=== PATIENT | male | born 1970 | race Caucasian/White ===

== ENCOUNTER 2016-12-08 18:00 | Emergency (ER) | payer OTHER ==
[2016-12-08 18:09] VITALS: BP 128/81; PULSE 65; RESP 18; TEMP 97.5
--- NOTE | 2016-12-08 18:18 | ED ---
Lower Extremity Injury HPI - General Chief Complaint: Extremity Injury, Lower Stated Complaint: rt knee injury - i[facility] Time Seen by Provider: 12/08/16 18:11 Source: patient, RN notes reviewed, old records reviewed Mode of arrival: ambulatory Limitations: no limitations - History of Present Illness Initial Comments: This is a 46-year-old presents emergency Department with chief complaint of right knee pain. Patient reports that he was at work and was twisting to get something. Patient reports that his foot stayed in the same position but his body leave the other way. He reports that he has pain mainly in the medial aspect of his knee. He denies any chronic issues with his knee. He states that he has full range of motion in the. He denies any ankle or foot pain. He states that he does have some numbness and tingling that goes down his foot. He states at that time normal. Patient denies any hip pain or thigh pain. Patient reports he is able to bear weight over his leg without stating that he has had some pain. - Related Data Previous Rx's Medication Instructions Recorded Ibuprofen [Motrin] 800 mg PO Q6HR PRN #20 tab 12/08/16 Allergies Allergy/AdvReac Type Severity Reaction Status Date / Time No Known Allergies Allergy Verified 12/08/16 18:26 Review of Systems ROS Statement: Those systems with pertinent positive or pertinent negative responses have been documented in the HPI. ROS Other: All systems not noted in ROS Statement are negative. Past Medical History Past Medical History: Cancer, Hyperlipidemia, Prostate Disorder Additional Past Medical History / Comment(s): migraines, prostate cancer History of Any Multi-Drug Resistant Organisms: None Reported Past Surgical History: Adenoidectomy, Appendectomy, Cholecystectomy, Hernia Repair, Orthopedic Surgery, Prostate Surgery, Tonsillectomy Additional Past Surgical History / Comment(s): left knee arthroscopy, rt ankle tendon surgery, Past Anesthesia/Blood Transfusion Reactions: No Reported Reaction Past Psychological History: No Psychological Hx Reported Smoking Status: Current every day smoker Past Alcohol Use History: Occasional Additional Past Alcohol Use History / Comment(s): has smoked for > 20 yrs, 1/2 PPD Past Drug Use History: None Reported - Past Family History Mother Family Medical History: Cancer, Pulmonary Embolus General Exam - General Exam Comments Initial Comments: This is a 46-year-old male presents emergency Department with chief plan right knee. Patient does not appear to be in any acute distress. Limitations: no limitations General appearance: alert, in no apparent distress Head exam: Present: atraumatic, normocephalic, normal inspection Eye exam: Present: normal appearance, PERRL, EOMI. Absent: scleral icterus, conjunctival injection, periorbital swelling ENT exam: Present: normal exam, mucous membranes moist Neck exam: Present: normal inspection. Absent: tenderness, meningismus, lymphadenopathy Respiratory exam: Present: normal lung sounds bilaterally. Absent: respiratory distress, wheezes, rales, rhonchi, stridor Cardiovascular Exam: Present: regular rate, normal rhythm, normal heart sounds. Absent: systolic murmur, diastolic murmur, rubs, gallop, clicks GI/Abdominal exam: Present: soft, normal bowel sounds. Absent: distended, tenderness, guarding, rebound, rigid Extremities exam: Present: normal inspection, full ROM, normal capillary refill. Absent: tenderness, pedal edema, joint swelling, calf tenderness Right Upper Leg exam: Present: normal inspection, full ROM Knee exam: Present: normal inspection, full ROM, tenderness (She reports tenderness over the medial aspect of the knee. Patient does have full range motion.). Absent: swelling, abrasion Lower Leg exam: Present: normal inspection, full ROM Ankle exam: Present: normal inspection, full ROM Foot/Toe exam: Present: normal inspection, full ROM Neurovascular tendon exam: Present: no vascular compromise Gait: observed and normal Back exam: Present: normal inspection Neurological exam: Present: alert, oriented X3, CN II-XII intact Psychiatric exam: Present: normal affect, normal mood Skin exam: Present: warm, dry, intact, normal color. Absent: rash Course Vital Signs 12/08/16 18:07 Temperature 97.5 F L Pulse Rate 65 Respiratory 18 Rate Blood Pressure 128/81 O2 Sat by Pulse 96 Oximetry Medical Decision Making - Medical Decision Making Is a 46 female presents emergency room chief plate of right knee pain after he twisted it at work. Patient does have to completing her drug screen for Worker' s Comp. Patient received a right knee x-ray. He does have full range motion. Patient has no swelling. He reports the pain is mainly over the medial aspect of the knee. Patient will be receiving an x-ray. During a negative for any acute fracture. Patient will be given an Obi wrap. Discharged with Motrin 800 and orthopedic referral. Patient also be discharged with crutches. Instructed to be nonweightbearing for the next 2-3 days and apply ice over the knee is much as possible. Patient agrees treatment plan will comply. Return parameters were discussed. - Radiology Data Radiology results: report reviewed X-ray of right knee was reviewed. Negative for any acute process. Disposition Clinical Impression: Right knee sprain Disposition: HOME SELF-CARE Condition: Good Instructions: Knee Sprain (ED) Additional Instructions: Patient is to rest, apply ice over the area. Patient instructed take anti- inflammatory medication such as Motrin. Follow-up with orthopedic physician if symptoms continue to persist. Patient should be nonweightbearing for the next 2 days. Use crutches as needed. Prescriptions: Ibuprofen [Motrin] 800 mg PO Q6HR PRN #20 tab PRN Reason: Pain Referrals: Bryant Barbour DO [Primary Care Provider] - 1-2 days Maryellen Espinal PAC [PHYSICIAN [employer] L[employer] PROFESSOR] - 1-2 days Time of Disposition: 18:33
--- NOTE | 2016-12-08 18:49 | XR ---
EXAMINATION TYPE: XR knee complete RT DATE OF EXAM: 12/08/2016 6:32 PM COMPARISON: NONE HISTORY: Knee pain TECHNIQUE: 3 views FINDINGS: I see no fracture nor dislocation. Joint spaces are normal. There is mild spurring on the s uperior patella. There is no sign of joint effusion. IMPRESSION: No acute abnormality of the right knee.
== END 2016-12-08 18:57 | disposition home or self-care (01) ==
LOC: EC 18:00
DX: S83.91XA Sprain of unspecified site of right knee, initial encounter (principal); F17.200 Nicotine dependence, unspecified, uncomplicated; Z85.46 Personal history of malignant neoplasm of prostate; X50.1XXA Overexertion from prolonged static or awkward postures, initial encounter; Y92.69 Other specified industrial and construction area as the place of occurrence of the external cause; Y99.0 Civilian activity done for income or pay
CPT/HCPCS: 99284

== ENCOUNTER → 2016-12-18 | Outpatient (CLI) | payer OTHER ==
--- NOTE | 2016-12-18 08:08 | MR ---
EXAMINATION TYPE: MR knee RT wo con DATE OF EXAM: 12/18/2016 7:04 AM COMPARISON: NONE HISTORY: Right knee pain TECHNIQUE: Multiplanar, multiecho imaging of the right knee is performed without IV contrast. FINDINGS: There is no significant joint effusion. There is grade I to II chondromalacia involving the patellar apex and medial facet. No other signific ant chondromalacia is seen. There is a slightly oblique tear through the body and posterior body horn junction of the medial meni scus. This communicates with the inferior articulating surface. This is not significantly displaced. The lateral meniscus is unremarkable. Both the anterior and posterior cruciate ligaments are intact. The medial and lateral collateral ligament complexes are intact. Iliotibial band inserts normally upo n Gerdy's tubercle. The popliteus muscle and tendon are normal. Both the patellar and quadriceps tendons are intact. There is no significant swelling in the Hoffa fa t space. IMPRESSION: 1. MINIMAL CHONDROMALACIA DESCRIBED. 2. SLIGHTLY OBLIQUE TEAR THROUGH THE BODY AND POSTERIOR BODY HORN JUNCTION OF THE MEDIAL MENISCUS.
== END | disposition home or self-care (01) ==
LOC: RADMRIMAIN 06:31
PROVIDERS: ATTEND Emergency Medicine
DX: S83.91XD Sprain of unspecified site of right knee, subsequent encounter (principal); S83.241A Other tear of medial meniscus, current injury, right knee, initial encounter; M94.261 Chondromalacia, right knee

== ENCOUNTER → 2017-03-11 | Outpatient (CLI) | payer OTHER ==
--- NOTE | 2017-03-11 18:19 | US ---
EXAMINATION TYPE: US venous doppler duplex LE RT DATE OF EXAM: 03/11/2017 6:10 PM COMPARISON: Prior in PACS CLINICAL HISTORY: R knee pain M25.561. Right knee surgery last week. SIDE PERFORMED: Right TECHNIQUE: The lower extremity deep venous system is examined utilizing real time linear array sonog deanna with graded compression, doppler sonography and color-flow sonography. VESSELS IMAGED: External Iliac Vein (EIV) Common Femoral Vein Deep Femoral Vein Greater Saphenous Vein * Femoral Vein Popliteal Vein Small Saphenous Vein * Proximal Calf Veins (* superficial vessels) Right Leg: Negative for DVT IMPRESSION: Negative exam. No evidence of deep venous thrombosis in the right leg.
== END | disposition home or self-care (01) ==
LOC: RADUSMAIN 17:25
PROVIDERS: ATTEND Orthopaedic Surgery
DX: I80.9 Phlebitis and thrombophlebitis of unspecified site (principal); S83.241D Other tear of medial meniscus, current injury, right knee, subsequent encounter

== ENCOUNTER 2017-11-29 17:20 | Emergency (ER) | payer OTHER ==
[2017-11-29 17:41] VITALS: RESP 18; TEMP 97.6
--- NOTE | 2017-11-29 19:19 | XR ---
PROCEDURE: XR hand complete LT, 3 views DATE AND TIME: 11/29/2017 6:00 PM REFERRING PHYSICIAN: Memo Sethi CLINICAL INDICATION: PHH, Pain TECHNIQUE: Department protocol. COMPARISON: None FINDINGS: There is no fracture or malalignment. Multifocal osteoarthritis changes are appreciated, perhaps most advanced at the first MCP and first M CC articulation. The soft tissues are unremarkable. IMPRESSION: NO ACUTE PROCESS.
[2017-11-29] MEDS ORDERED: IBUPROFEN 600 MG TAB PO STA (19:41)
[2017-11-29] MEDS ORDERED: PROPARACAINE 0.5% OPHTH DROPS 15 ML BTL LEFT EYE STA (19:41)
[2017-11-29] MEDS ORDERED: TOBRAMYCIN 0.3% OPHTH DROPS 5 ML BTL LEFT EYE STA (20:19)
--- NOTE | 2017-11-29 20:19 | ED ---
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 Patient states he was at work when he dropped a heavy metal bar onto his hand. Patient states that the hand feels swollen and tight. States it hurts to make a fist. Patient denies any numbness or tingling to the hand. Denies any previous injury to the hand. 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 Patient states he feels despite flushing numerous times that there may be still a piece in his eye. He denies any blurred or double vision. States that it feels there is something under his eyelid. Patient denies any headache, neck pain, back pain, chest pain, shortness of breath, dizziness, weakness, abdominal pain, nausea, vomiting, or difficulties with bowel movements or urination. - Related Data Home Medications Medication Instructions Recorded Confirmed Ibuprofen [Motrin Ib] 400 mg PO Q6H PRN 11/29/17 11/29/17 Allergies Allergy/AdvReac Type Severity Reaction Status Date / Time No Known Allergies Allergy Verified 11/29/17 19:23 Review of Systems ROS Statement: Those systems with pertinent positive or pertinent negative responses have been documented in the HPI. ROS Other: All systems not noted in ROS Statement are negative. Past Medical History Past Medical History: Cancer, Hyperlipidemia, Prostate Disorder Additional Past Medical History / Comment(s): migraines, prostate cancer History of Any Multi-Drug Resistant Organisms: None Reported Past Surgical History: Adenoidectomy, Appendectomy, Cholecystectomy, Hernia Repair, Orthopedic Surgery, Prostate Surgery, Tonsillectomy Additional Past Surgical History / Comment(s): left knee arthroscopy, rt ankle tendon surgery, Past Anesthesia/Blood Transfusion Reactions: No Reported Reaction Past Psychological History: No Psychological Hx Reported Smoking Status: Current every day smoker Past Alcohol Use History: Occasional Past Drug Use History: None Reported - Past Family History Mother Family Medical History: Cancer, Pulmonary Embolus General Exam Limitations: no limitations General appearance: alert, in no apparent distress, other (This is a well- developed, well-nourished adult male patient in no acute distress. Vital signs upon presentation are temperature 97.6F, pulse 77, respirations 18, blood pressure 119/78, pulse ox 96% on room air.) Eye exam: Present: normal appearance, PERRL, EOMI, other (Fluorescein stain with Wood's lamp examination was performed to the left eye. No evidence of corneal abrasion, conjunctival abrasion, or foreign body. Left upper lid was inverted, no evidence of foreign body.). Absent: scleral icterus, conjunctival injection, periorbital swelling ENT exam: Present: normal exam, normal oropharynx, mucous membranes moist Neck exam: Present: normal inspection. Absent: tenderness, meningismus, lymphadenopathy Respiratory exam: Present: normal lung sounds bilaterally. Absent: respiratory distress, wheezes, rales, rhonchi, stridor Extremities exam: Present: tenderness (Tenderness over the mid hand, palmar aspect), normal capillary refill, other (Patient has ecchymosis noted to the palmar aspect of the left hand. There is generalized swelling. Skin is otherwise pink, warm, and dry. Cap refills less than 3 seconds. Radial pulses 2+ and equal bilaterally.). Absent: normal inspection, full ROM (Decreased range of motion to left hand due to increased pain with movement), pedal edema, joint swelling, calf tenderness Neurological exam: Present: alert, oriented X3, CN II-XII intact Psychiatric exam: Present: normal affect, normal mood Skin exam: Present: warm, dry, intact, normal color. Absent: rash Course Vital Signs 11/29/17 11/29/17 17:37 20:51 Temperature 97.6 F Pulse Rate 77 73 Respiratory 18 18 Rate Blood Pressure 119/78 122/82 O2 Sat by Pulse 96 98 Oximetry Medical Decision Making - Medical Decision Making 47-year-old male patient is oriented to the emergency department today for evaluation of left hand pain left eye discomfort. Physical examination did reveal ecchymosis and swelling to the left hand. X-ray was negative for any acute fracture or dislocation. We did discuss the possibility of occult fracture. He is instructed to have repeat x-ray performed in 7-10 days if his pain symptoms persist. It is no conjunctival injection, evidence of foreign body, or evidence of abrasion to the left eye. Patient will be started on tobramycin drops and instructed to follow-up with the dyeing machine back tender for recheck in 1-2 days if his symptoms are not improved. Return parameters were discussed in detail. He verbalizes understanding and agrees with this plan. - Radiology Data Radiology results: report reviewed, image reviewed 3 views of the left hand were completed, no fracture or malalignment noted. Multifocal arthritis changes are appreciated, perhaps most advanced at the first MCP and first [facility] articulation. The soft tissues are unremarkable. Impression by Dr. Chapa shows no acute process. Disposition Clinical Impression: Contusion of left hand, Foreign body, eye Disposition: HOME SELF-CARE Condition: Good Instructions: Contusion in Adults (ED), Eye Foreign Body (ED) Additional Instructions: Rest, ice, elevate the left hand. If pain symptoms persist for the next 7-10 days have repeat x-ray performed. Use antibiotic eyedrop 2 drops to the left eye every 4 hours. If symptoms aren't improved over the next 1-2 days follow- up with ophthalmology for recheck. Return here immediately for any new, worsening, or concerning symptoms. Is patient prescribed a controlled substance at d/c from ED?: No Referrals: Bryant Barbour DO [Primary Care Provider] - 1-2 days Basilia Polk MD [STAFF PHYSICIAN] - 1-2 days Time of Disposition: 20:19
[2017-11-29 20:54] VITALS: BP 122/82; PULSE 73
== END 2017-11-29 21:18 | disposition home or self-care (01) ==
LOC: EC 17:20
DX: S60.222A Contusion of left hand, initial encounter (principal); T15.92XA Foreign body on external eye, part unspecified, left eye, initial encounter; F17.200 Nicotine dependence, unspecified, uncomplicated; Z85.46 Personal history of malignant neoplasm of prostate; Z98.890 Other specified postprocedural states; W20.8XXA Other cause of strike by thrown, projected or falling object, initial encounter; Y92.69 Other specified industrial and construction area as the place of occurrence of the external cause; Y99.0 Civilian activity done for income or pay
CPT/HCPCS: 99283

== ENCOUNTER → 2017-12-06 | Outpatient (CLI) | payer OTHER ==
--- NOTE | 2017-12-06 09:17 | XR ---
EXAMINATION TYPE: XR hand complete LT DATE OF EXAM: 12/06/2017 CLINICAL HISTORY: Crush injury to the left hand TECHNIQUE: Frontal, lateral and oblique images of the left hand are obtained. COMPARISON: None. FINDINGS: There is no acute fracture/dislocation evident in the left hand. Hypertrophic osseous varela ge, joint space narrowing and subchondral cyst formation are seen of the first metacarpal phalangeal joint. The overlying soft tissue appears unremarkable. No radiopaque foreign body is seen. IMPRESSION: There is no acute fracture or dislocation in the left hand.
== END | disposition home or self-care (01) ==
LOC: RADXRMAIN 08:59
PROVIDERS: ATTEND Emergency Medicine
DX: S67.22XD Crushing injury of left hand, subsequent encounter (principal)

== ENCOUNTER 2018-03-06 19:09 | Emergency (ER) | payer OTHER ==
[2018-03-06] MEDS ORDERED: SODIUM CHLORIDE 0.9% 2,000 ML IV STA (20:22)
[2018-03-06 20:33] LABS: Basophils % (A) 1 %; Eosinophils # (A) 0.3 k/uL (0-0.7); Eosinophils % (A) 5 %; HCT 46.2 % (39.0-53.0); HGB 15.9 gm/dL (13.0-17.5); Lymphocytes # (A) 1.4 k/uL (1.0-4.8); Lymphocytes % (A) 22 %; MCH 30.9 pg (25.0-35.0); MCHC 34.4 g/dL (31.0-37.0); MCV 89.9 fL (80.0-100.0); Mean Platelet Volume 6.7; Monocytes # (A) 0.4 k/uL (0-1.0); Monocytes % (A) 6 %; Neutrophils # (A) 4.1 k/uL (1.3-7.7); Neutrophils % (A) 65 %; Platelet Count 223 k/uL (150-450); RBC 5.14 m/uL (4.30-5.90); WBC 6.3 k/uL (3.8-10.6)
[2018-03-06 20:42] LABS: ALT 50 U/L (21-72); AST 36 U/L (17-59); Albumin 4.8 g/dL (3.5-5.0); Alkaline Phosphatase 106 U/L (38-126); Amylase 146 U/L (30-110); Anion Gap 10 mmol/L; Blood Urea Nitrogen 23 mg/dL (9-20); Calcium 9.6 mg/dL (8.4-10.2); Carbon Dioxide 23 mmol/L (22-30); Chloride 105 mmol/L (98-107); Glucose 104 mg/dL (74-99); Lipase 695 U/L (23-300); Potassium 4.6 mmol/L (3.5-5.1); Sodium 138 mmol/L (137-145); Total Bilirubin 0.6 mg/dL (0.2-1.3); Total Protein 7.8 g/dL (6.3-8.2)
--- NOTE | 2018-03-06 20:54 | XR ---
EXAMINATION TYPE: XR KUB DATE OF EXAM: 03/06/2018 COMPARISON: NONE HISTORY: Dehydration and dizziness TECHNIQUE: 2 upright views FINDINGS: There is no sign of intestinal obstruction or pneumoperitoneum. Fecal pattern is normal. Iqra ng bases are clear. There are no pathologic calcifications over the kidneys. IMPRESSION: Nonacute abdomen.
[2018-03-06 21:02] VITALS: RESP 18; TEMP 98.1
--- NOTE | 2018-03-06 21:54 | ED ---
General Adult HPI - General Chief complaint: Recheck/Abnormal Lab/Rx Stated complaint: dehydratin Time Seen by Provider: 03/06/18 20:16 Source: patient Mode of arrival: ambulatory Limitations: no limitations - History of Present Illness Initial comments: 47 years old gentleman comes in with the back pain is gone on for about 5 days now and he feels cramps in his legs he feels he is dehydrated he feels some his kidneys are acting up. He does drink. He is nauseous denies any vomiting no diarrhea denies any headaches no no neck stiffness no chest pain or shortness of breath no abdominal pain is complaining about some vague back pain, devious system is unremarkable otherwise Severity scale (1-10): 0 - Related Data Home Medications Medication Instructions Recorded Confirmed Ibuprofen [Motrin Ib] 400 mg PO Q6H PRN 11/29/17 03/06/18 Allergies Allergy/AdvReac Type Severity Reaction Status Date / Time No Known Allergies Allergy Verified 03/06/18 20:02 Review of Systems ROS Statement: Those systems with pertinent positive or pertinent negative responses have been documented in the HPI. ROS Other: All systems not noted in ROS Statement are negative. Past Medical History Past Medical History: Cancer, Hyperlipidemia, Prostate Disorder Additional Past Medical History / Comment(s): migraines, prostate cancer History of Any Multi-Drug Resistant Organisms: None Reported Past Surgical History: Adenoidectomy, Appendectomy, Cholecystectomy, Hernia Repair, Orthopedic Surgery, Prostate Surgery, Tonsillectomy Additional Past Surgical History / Comment(s): left knee arthroscopy, rt ankle tendon surgery, Past Anesthesia/Blood Transfusion Reactions: No Reported Reaction Past Psychological History: No Psychological Hx Reported Smoking Status: Current every day smoker Past Alcohol Use History: Occasional Past Drug Use History: None Reported - Past Family History Mother Family Medical History: Cancer, Pulmonary Embolus General Exam - General Exam Comments Initial Comments: General: The patient is awake and alert, in no distress, and does not appear acutely ill. Skin: Skin is warm and dry and no rashes or lesions are noted. Eye: Pupils are equal, round and reactive to light, extra-ocular movements are intact; there is normal conjunctiva bilaterally. Ears, nose, mouth and throat: There are moist mucous membranes and no oral lesions. Neck: The neck is supple, there is no tenderness or JVD. Cardiovascular: There is a regular rate and rhythm. No murmur, rub or gallop is appreciated. Respiratory: To auscultation bilateral, no wheezing no rhonchi no distress respiratory stuart noticed Gastrointestinal: No focal tenderness noticed over the anterior abdomen no focal tenderness noticed over the flank area no focal tenderness noticed over the spine. Back: There is no tenderness to palpation in the midline. There is no obvious deformity. Musculoskeletal: Normal ROM, no tenderness, There is no pedal edema. There is no calf tenderness or swelling. No cords were appreciated. Neurological: CN II-XII intact, Cranial nerves III through XII are intact. There are no obvious motor or sensory deficits. Coordination appears grossly intact. Speech is normal. Psychiatric: Cooperative, appropriate mood & affect, normal judgment. Limitations: no limitations Course Vital Signs 03/06/18 03/06/18 03/06/18 19:39 20:05 21:01 Temperature 97.9 F 98.1 F Pulse Rate 85 70 Pulse Rate [ 79 Sitting] Pulse Rate [ 85 Standing] Pulse Rate [ 69 Supine] Respiratory 16 16 18 Rate Blood Pressure 128/93 122/87 Blood Pressure 130/89 [Sitting] Blood Pressure 125/90 [Standing] Blood Pressure 128/84 [Supine] O2 Sat by Pulse 98 96 Oximetry Reviewed his labs CBC and comp his metabolic panel are unremarkable lipase is 695 and amylase is 146, patient has no abdominal pain whatsoever advised him to follow with the Dr. Barbour with the next 34 days His amylase and lipase checked if they could if they stay elevated he needs to do an outpatient CAT scan of the abdomen to rule out any pancreatic pathology patient agreed with the and he agreed to see Dr. Barbour within 5 days Medical Decision Making - Lab Data Result diagrams: 03/06/18 20:16 03/06/18 20:16 Lab Results 03/06/18 03/06/18 03/06/18 Range/Units 20:16 20:16 20:16 WBC 6.3 (3.8-10.6) k/uL RBC 5.14 (4.30-5.90) m/uL Hgb 15.9 (13.0-17.5) gm/dL Hct 46.2 (39.0-53.0) % MCV 89.9 (80.0-100.0) fL MCH 30.9 (25.0-35.0) pg MCHC 34.4 (31.0-37.0) g/dL RDW 13.0 (11.5-15.5) % Plt Count 223 (150-450) k/uL Neutrophils % 65 % Lymphocytes % 22 % Monocytes % 6 % Eosinophils % 5 % Basophils % 1 % Neutrophils # 4.1 (1.3-7.7) k/uL Lymphocytes # 1.4 (1.0-4.8) k/uL Monocytes # 0.4 (0-1.0) k/uL Eosinophils # 0.3 (0-0.7) k/uL Basophils # 0.0 (0-0.2) k/uL Sodium 138 (137-145) mmol/L Potassium 4.6 (3.5-5.1) mmol/L Chloride 105 (98-107) mmol/L Carbon Dioxide 23 (22-30) mmol/L Anion Gap 10 mmol/L BUN 23 H (9-20) mg/dL Creatinine 0.80 (0.66-1.25) mg/dL Est GFR (CKD-EPI)AfAm >90 (>60 ml/min/1.73 sqM) Est GFR (CKD-EPI)NonAf >90 (>60 ml/min/1.73 sqM) Glucose 104 H (74-99) mg/dL Plasma Lactic Acid Fernando 1.1 (0.7-2.0) mmol/L Calcium 9.6 (8.4-10.2) mg/dL Total Bilirubin 0.6 (0.2-1.3) mg/dL AST 36 (17-59) U/L ALT 50 (21-72) U/L Alkaline Phosphatase 106 (38-126) U/L Total Protein 7.8 (6.3-8.2) g/dL Albumin 4.8 (3.5-5.0) g/dL Amylase 146 H (30-110) U/L Lipase 695 H (23-300) U/L Disposition Clinical Impression: Pancreatitis Disposition: HOME SELF-CARE Condition: Fair Instructions: Pancreatitis (ED) Additional Instructions: Is advised to avoid deep fried food rich foods the next couple days and repeat the amylase and lipase within 5 days or return to the ER if epigastric pain or back pain gets worse he agreed with the is advised to hydrate himself well Is patient prescribed a controlled substance at d/c from ED?: No Referrals: Bryant Barbour DO [Primary Care Provider] - 1-2 days
[2018-03-06 22:08] LABS: Appearance,Urine Clear (Clear); Bilirubin,Urine Negative (Negative); Blood,Urine Negative (Negative); Color,Urine Yellow; Glucose,Urine (UA) Negative (Negative); Ketones,Urine Negative (Negative); Leukocyte Esterase,Urine Negative (Negative); Mucus,Urine Rare /hpf; Nitrite,Urine Negative (Negative); PH, Urine 5.5 (5.0-8.0); Protein,Urine 1+ (Negative); RBC,Urine <1 /hpf (0-5); Specific Gravity,Urine 1.025 (1.001-1.035); WBC,Urine <1 /hpf (0-5)
[2018-03-06 22:37] VITALS: BP 105/66; PULSE 78
== END 2018-03-06 22:30 | disposition home or self-care (01) ==
LOC: EC 19:09
DX: K85.90 Acute pancreatitis without necrosis or infection, unspecified (principal); R29.898 Other symptoms and signs involving the musculoskeletal system; F17.200 Nicotine dependence, unspecified, uncomplicated; Z85.46 Personal history of malignant neoplasm of prostate
CPT/HCPCS: 36415; 74018; 80053; 81001; 82150; 83605; 83690; 85025; 96360; 96361; 99284

== ENCOUNTER 2019-04-24 17:40 | Emergency (ER) | payer OTHER ==
[2019-04-24 17:45] VITALS: BP 117/77; PULSE 75; RESP 20; TEMP 97.8
[2019-04-24] MEDS ORDERED: DIPH,PERTUS(ACELL)TETVAC-LF 0.5 ML VIAL IM ONE (19:24)
--- NOTE | 2019-04-24 19:44 | ED ---
General Adult HPI - General Chief complaint: Burn/Smoke Inhalation Stated complaint: [facility] - BURN Time Seen by Provider: 04/24/19 18:22 Source: patient, RN notes reviewed Mode of arrival: ambulatory Limitations: no limitations - History of Present Illness Initial comments: 48-year-old male presents to the emergency department for a chief complaint of burn. Patient states that he was working with hot brass when it splashed onto his face by his right nose. Patient states also irritated his eye. Patient was wearing safety goggles and does not think anything could have gotten into his eye. Denies any visual changes. States it is just mildly irritating to the top of his eye. Patient states he did apply antibiotic ointment to the area. Patient states tetanus is not up-to-date.Patient has no other complaints at this time including shortness of breath, chest pain, abdominal pain, nausea or vomiting, headache, or visual changes. - Related Data Home Medications Medication Instructions Recorded Confirmed Ibuprofen [Motrin Ib] 400 mg PO Q6H PRN 11/29/17 03/06/18 Allergies Allergy/AdvReac Type Severity Reaction Status Date / Time No Known Allergies Allergy Verified 04/24/19 17:45 Review of Systems ROS Statement: Those systems with pertinent positive or pertinent negative responses have been documented in the HPI. ROS Other: All systems not noted in ROS Statement are negative. Past Medical History Past Medical History: Cancer, Hyperlipidemia, Prostate Disorder Additional Past Medical History / Comment(s): migraines, prostate cancer History of Any Multi-Drug Resistant Organisms: None Reported Past Surgical History: Adenoidectomy, Appendectomy, Cholecystectomy, Hernia Repair, Orthopedic Surgery, Prostate Surgery, Tonsillectomy Additional Past Surgical History / Comment(s): left knee arthroscopy, rt ankle tendon surgery, Past Anesthesia/Blood Transfusion Reactions: No Reported Reaction Past Psychological History: No Psychological Hx Reported Smoking Status: Current every day smoker Past Alcohol Use History: Occasional Past Drug Use History: None Reported - Past Family History Mother Family Medical History: Cancer, Pulmonary Embolus General Exam Limitations: no limitations General appearance: alert, in no apparent distress Head exam: Present: atraumatic, normocephalic, normal inspection Eye exam: Present: normal appearance, PERRL, EOMI, other (No evidence of abrasion with foreseen stain). Absent: scleral icterus, conjunctival injection, periorbital swelling Expanded Eyelids: Normal Inspection: Bilateral Pupils: Regular, Round: Bilateral Sclera/Conjunctival: Normal Inspection: Bilateral Visual acuity (R) = 20/: 15 Visual acuity (L) = 20/: 15 ENT exam: Present: normal oropharynx, mucous membranes moist, normal external ear exam, other (Patient has burn with blistering noted to the right nares. This is about 1 x 1 cm. No other delvalle to the face.) Course Vital Signs 04/24/19 17:43 Temperature 97.8 F Pulse Rate 75 Respiratory 20 Rate Blood Pressure 117/77 O2 Sat by Pulse 99 Oximetry Medical Decision Making - Medical Decision Making 48-year-old male presents for burn. Patient states breast splashed onto his face at work. Patient was wearing safety goggles. There is a 1 cm x 1 cm burn noted to the right external nares. No internal burn. Patient was given antibiotic ointment for this and tender shot was updated. Patient also felt like his right eye was irritated. But denied any pain. Denied visual changes. On exam conjunctiva is non-erythematous. Fluorescein staining wasn't was used to visualize the eye and there is no evidence for abrasion or corneal defect. At this time patient can follow up with primary care. He will return here for any worsening symptoms. Disposition Clinical Impression: Burn Disposition: HOME SELF-CARE Condition: Good Instructions (If sedation given, give patient instructions): Second Degree Burn (ED) Additional Instructions: Please apply antibiotic ointment at least twice daily to burn. Monitor for signs of infection she is spotting or streaking redness drainage or fever and return if these occur. Please follow-up with primary care and [facility] in one to 2 days. Please return to the emergency department if you have any worsening symptoms. Is patient prescribed a controlled substance at d/c from ED?: No Referrals: Bryant Barbour DO [Primary Care Provider] - 1-2 days Time of Disposition: 19:43
== END 2019-04-24 19:56 | disposition home or self-care (01) ==
LOC: EC 17:40
DX: T20.24XA Burn of second degree of nose (septum), initial encounter (principal); H57.89 Other specified disorders of eye and adnexa; F17.200 Nicotine dependence, unspecified, uncomplicated; Z85.46 Personal history of malignant neoplasm of prostate; Z98.890 Other specified postprocedural states; Z23 Encounter for immunization; X18.XXXA Contact with other hot metals, initial encounter; Y93.89 Activity, other specified; Y99.0 Civilian activity done for income or pay
CPT/HCPCS: 90471; 90715; 99283

== ENCOUNTER 2019-07-06 03:14 | Emergency (ER) | payer OTHER ==
--- NOTE | 2019-07-06 04:02 | XR ---
EXAMINATION TYPE: XR chest 2V DATE OF EXAM: 07/06/2019 COMPARISON: 04/05/2016 HISTORY: Short of breath TECHNIQUE: Frontal and lateral views of the chest are obtained. FINDINGS: Heart and mediastinum are normal. Lungs are clear. Diaphragm is normal. Bony thorax is nor mal. IMPRESSION: Normal chest. No change.
[2019-07-06 04:23] LABS: Basophils % (A) 1 %; Eosinophils # (A) 0.2 k/uL (0-0.7); Eosinophils % (A) 4 %; HCT 40.5 % (39.0-53.0); HGB 13.9 gm/dL (13.0-17.5); Lymphocytes # (A) 1.5 k/uL (1.0-4.8); Lymphocytes % (A) 33 %; MCH 30.6 pg (25.0-35.0); MCHC 34.3 g/dL (31.0-37.0); MCV 89.1 fL (80.0-100.0); Monocytes # (A) 0.3 k/uL (0-1.0); Monocytes % (A) 7 %; Neutrophils # (A) 2.3 k/uL (1.3-7.7); Neutrophils % (A) 52 %; Platelet Count 228 k/uL (150-450); RBC 4.54 m/uL (4.30-5.90); RDW 12.9 % (11.5-15.5); WBC 4.4 k/uL (3.8-10.6)
[2019-07-06 04:31] LABS: ALT 42 U/L (21-72); AST 24 U/L (17-59); African American GFR (CKD) >90 (>60 ml/min/1.73 sqM); Albumin 4.2 g/dL (3.5-5.0); Alkaline Phosphatase 82 U/L (38-126); Anion Gap 6 mmol/L; Blood Urea Nitrogen 20 mg/dL (9-20); Calcium 9.5 mg/dL (8.4-10.2); Carbon Dioxide 27 mmol/L (22-30); Chloride 106 mmol/L (98-107); Glucose 97 mg/dL (74-99); Non-African American GFR(CKD) >90 (>60 ml/min/1.73 sqM); Potassium 4.1 mmol/L (3.5-5.1); Sodium 139 mmol/L (137-145); Total Bilirubin 0.5 mg/dL (0.2-1.3)
[2019-07-06] MEDS ORDERED: KETOROLAC 30 MG/ML 1 ML VIAL IVP STA (04:37)
--- NOTE | 2019-07-06 05:20 | ED ---
Back Pain HPI - General Chief Complaint: Back Pain/Injury Stated Complaint: Back Pain Time Seen by Provider: 07/06/19 03:33 Source: patient, family Limitations: no limitations - History of Present Illness Initial Comments: Jefe is a pleasant 49-year-old gentleman who presents to the emergency department today for evaluation of what he describes this left back pain similar to pleu risy. Patient reports he was at work this evening when he "noticed that he had some pain upon deep inspiration, patient reports this is very similar to previous episodes of pleurisy. Patient reports that pain doesn't seem to be worse with movement or moving his arms or shoulders or doing work. He doesn't have any exertional pain, he is no anterior chest pain or pain radiating to the shoulders or jaw. He denies any palpitations lightheadedness or shortness of breath. He does report he feels like he is taking smaller breaths due to the discomfort. - Related Data Home Medications Medication Instructions Recorded Confirmed Ibuprofen [Motrin Ib] 400 mg PO Q6H PRN 11/29/17 03/06/18 Previous Rx's Medication Instructions Recorded Ibuprofen [Motrin] 800 mg PO TID PRN #30 tab 07/06/19 Allergies Allergy/AdvReac Type Severity Reaction Status Date / Time No Known Allergies Allergy Verified 07/06/19 03:22 Review of Systems ROS Statement: Those systems with pertinent positive or pertinent negative responses have been documented in the HPI. ROS Other: All systems not noted in ROS Statement are negative. Past Medical History Past Medical History: Cancer, Hyperlipidemia, Prostate Disorder Additional Past Medical History / Comment(s): migraines, prostate cancer History of Any Multi-Drug Resistant Organisms: None Reported Past Surgical History: Adenoidectomy, Appendectomy, Cholecystectomy, Hernia Re pair, Orthopedic Surgery, Prostate Surgery, Tonsillectomy Additional Past Surgical History / Comment(s): left knee arthroscopy, rt ankle tendon surgery, Past Anesthesia/Blood Transfusion Reactions: No Reported Reaction Past Psychological History: No Psychological Hx Reported Smoking Status: Current every day smoker Past Alcohol Use History: Occasional Past Drug Use History: None Reported - Past Family History Mother Family Medical History: Cancer, Pulmonary Embolus General Exam - General Exam Comments Initial Comments: Physical Exam GENERAL: Patient is well-developed and well-nourished. Patient is nontoxic and well- hydrated and is in no distress. HENT: Normocephalic, Atraumatic. EYES: PERRL, EOMI PULMONARY: Unlabored respirations. No audible rales rhonchi or wheezing was noted. CARDIOVASCULAR: There is a regular rate and rhythm without any murmurs gallops or rubs. ABDOMEN: Soft and nontender with normal bowel sounds. SKIN: Skin is clear with no lesions or rashes and otherwise unremarkable. : Deferred NEUROLOGIC: Patient is alert and oriented x3. Moving all extremities spontaneously MUSCULOSKELETAL: Normal extremities with adequate strength and full range of motion. No lower extremity swelling or edema. No calf tenderness. PSYCHIATRIC: Normal psychiatric evaluation. Limitations: no limitations Course Vital Signs 07/06/19 07/06/19 07/06/19 03:18 03:30 04:00 Temperature 97.9 F Pulse Rate 72 64 59 L Respiratory 24 19 14 Rate Blood Pressure 125/87 115/84 111/90 O2 Sat by Pulse 96 99 96 Oximetry 07/06/19 07/06/19 07/06/19 04:30 05:00 05:30 Temperature 98.1 F Pulse Rate 57 L 61 56 L Respiratory 16 15 14 Rate Blood Pressure 112/89 113/88 111/90 O2 Sat by Pulse 97 96 97 Oximetry Medical Decision Making - Medical Decision Making The patient was seen and evaluated history is obtained from the patient excited history and physical exam consistent with pleuritic chest pain however given the patient's age we will obtain labs and imaging. Labs with no acute findings, imaging with no acute findings. I discussed with the patient the possibility that his recurrent pleurisy could be related to cigarette smoking advised that he quit. Supportive care was discussed patient patient comfortable with plan for discharge home. - Lab Data Result diagrams: 07/06/19 04:11 07/06/19 04:11 Lab Results 07/06/19 07/06/19 07/06/19 Range/Units 04:11 04:11 04:11 WBC 4.4 (3.8-10.6) k/uL RBC 4.54 (4.30-5.90) m/uL Hgb 13.9 (13.0-17.5) gm/dL Hct 40.5 (39.0-53.0) % MCV 89.1 (80.0-100.0) fL MCH 30.6 (25.0-35.0) pg MCHC 34.3 (31.0-37.0) g/dL RDW 12.9 (11.5-15.5) % Plt Count 228 (150-450) k/uL Neutrophils % 52 % Lymphocytes % 33 % Monocytes % 7 % Eosinophils % 4 % Basophils % 1 % Neutrophils # 2.3 (1.3-7.7) k/uL Lymphocytes # 1.5 (1.0-4.8) k/uL Monocytes # 0.3 (0-1.0) k/uL Eosinophils # 0.2 (0-0.7) k/uL Basophils # 0.0 (0-0.2) k/uL D-Dimer 0.23 (<0.60) mg/L FEU Sodium 139 (137-145) mmol/L Potassium 4.1 (3.5-5.1) mmol/L Chloride 106 (98-107) mmol/L Carbon Dioxide 27 (22-30) mmol/L Anion Gap 6 mmol/L BUN 20 (9-20) mg/dL Creatinine 0.94 (0.66-1.25) mg/dL Est GFR (CKD-EPI)AfAm >90 (>60 ml/min/1.73 sqM) Est GFR (CKD-EPI)NonAf >90 (>60 ml/min/1.73 sqM) Glucose 97 (74-99) mg/dL Calcium 9.5 (8.4-10.2) mg/dL Total Bilirubin 0.5 (0.2-1.3) mg/dL AST 24 (17-59) U/L ALT 42 (21-72) U/L Alkaline Phosphatase 82 (38-126) U/L Troponin I (0.000-0.034) ng/mL Total Protein 7.0 (6.3-8.2) g/dL Albumin 4.2 (3.5-5.0) g/dL 07/06/19 Range/Units 04:11 WBC (3.8-10.6) k/uL RBC (4.30-5.90) m/uL Hgb (13.0-17.5) gm/dL Hct (39.0-53.0) % MCV (80.0-100.0) fL MCH (25.0-35.0) pg MCHC (31.0-37.0) g/dL RDW (11.5-15.5) % Plt Count (150-450) k/uL Neutrophils % % Lymphocytes % % Monocytes % % Eosinophils % % Basophils % % Neutrophils # (1.3-7.7) k/uL Lymphocytes # (1.0-4.8) k/uL Monocytes # (0-1.0) k/uL Eosinophils # (0-0.7) k/uL Basophils # (0-0.2) k/uL D-Dimer (<0.60) mg/L FEU Sodium (137-145) mmol/L Potassium (3.5-5.1) mmol/L Chloride (98-107) mmol/L Carbon Dioxide (22-30) mmol/L Anion Gap mmol/L BUN (9-20) mg/dL Creatinine (0.66-1.25) mg/dL Est GFR (CKD-EPI)AfAm (>60 ml/min/1.73 sqM) Est GFR (CKD-EPI)NonAf (>60 ml/min/1.73 sqM) Glucose (74-99) mg/dL Calcium (8.4-10.2) mg/dL Total Bilirubin (0.2-1.3) mg/dL AST (17-59) U/L ALT (21-72) U/L Alkaline Phosphatase (38-126) U/L Troponin I <0.012 (0.000-0.034) ng/mL Total Protein (6.3-8.2) g/dL Albumin (3.5-5.0) g/dL - EKG Data -: EKG Interpreted by Me EKG Comments: EKG was obtained due to complaint of left posterior back pain, EKG obtained at 3:33 AM, rate is 61 rhythm is sinus there is normal axis, normal intervals, [place] 182, QRS 90, QTC [address] elevations or depressions no evidence of acute ischemia or infarction. Disposition Clinical Impression: Pleuritic chest pain Disposition: HOME SELF-CARE Condition: Stable Additional Instructions: Symptoms are consistent with pleurisy, this is treated with anti-inflammatories such as Motrin. I recommend he take 800 mg 3 times daily. Make sure staying well-hydrated. Follow up their primary care physician later this week for reevaluation. If he develop any worsening chest pain, palpitations chest pain with exertion shortness of breath new or concerning symptoms return to the emergency department immediately. X-ray or taking deep breaths, I know this is uncomfortable however taking shallow breaths can increase her risk of developing pneumonia. Prescriptions: Ibuprofen [Motrin] 800 mg PO TID PRN #30 tab PRN Reason: Pain Is patient prescribed a controlled substance at d/c from ED?: No Referrals: Bryant Barbour DO [Primary Care Provider] - 1-2 days
[2019-07-06 05:34] VITALS: BP 111/90; PULSE 56; RESP 14; TEMP 98.1
== END 2019-07-06 05:41 | disposition home or self-care (01) ==
LOC: EC 03:14
DX: R07.81 Pleurodynia (principal); F17.210 Nicotine dependence, cigarettes, uncomplicated; Z71.6 Tobacco abuse counseling; Z85.49 Personal history of malignant neoplasm of other male genital organs; Z98.890 Other specified postprocedural states
CPT/HCPCS: 36415; 93005; 85379; 80053; 84484; 85025; 71046; 99284; 96374; J1885

== ENCOUNTER 2019-07-31 07:46 | Emergency (ER) | payer OTHER ==
[2019-07-31 08:28] LABS: Appearance,Urine Clear (Clear); Bilirubin,Urine Negative (Negative); Blood,Urine Negative (Negative); Color,Urine Yellow; Glucose,Urine (UA) Negative (Negative); Ketones,Urine Negative (Negative); Leukocyte Esterase,Urine Negative (Negative); Nitrite,Urine Negative (Negative); PH, Urine 5.5 (5.0-8.0); Protein,Urine Negative (Negative); Specific Gravity,Urine 1.025 (1.001-1.035); Urobilinogen,Urine <2.0 mg/dL (<2.0)
--- NOTE | 2019-07-31 08:40 | XR ---
EXAMINATION TYPE: XR chest 2V DATE OF EXAM: 07/31/2019 COMPARISON: 07/06/2019 INDICATION: Short of breath cough and congestion TECHNIQUE: Frontal and lateral views of the chest are obtained. FINDINGS: The heart size is normal. The pulmonary vasculature is normal. There is a subtle infiltrate within the right lower lobe. Correlate for pneumonia. IMPRESSION: 1. Mild right lower lobe infiltrate. Correlate for pneumonia and atelectasis.
[2019-07-31] MEDS ORDERED: methylPREDNISolone SOD SUCCI 125 MG/2 ML VIAL IV STA (09:10)
[2019-07-31] MEDS ORDERED: IPRATROPIUM-ALBUTEROL 3 ML NEB INHALATION STA (09:10)
[2019-07-31] MEDS ORDERED: SODIUM CHLORIDE 0.9% 1,000 ML IV STA ×2 (09:10)
[2019-07-31] MEDS ORDERED: IBUPROFEN 600 MG TAB PO STA (09:11)
[2019-07-31] MEDS ORDERED: ACETAMINOPHEN TAB 500 MG TAB PO STA (09:11)
--- NOTE | 2019-07-31 09:15 | ED ---
SOB HPI - General Chief Complaint: Shortness of Breath Stated Complaint: SHARON Time Seen by Provider: 07/31/19 08:02 Source: patient, RN notes reviewed, old records reviewed Mode of arrival: ambulatory Limitations: no limitations - History of Present Illness Initial Comments: 49-year-old male presents emergency room today with 3 weeks of progressive off, some chest discomfort and pleurisy. He reports he was diagnosed with pleurisy. 2. History with Motrin. No antibiotics at that time. He reports he's had a worsening progressive cough. He also states he's been having some pain in his kidney. Patient states that he's had also low-grade fevers and chills. She has a former smoker. He reports he quit at the new year. - Related Data Previous Rx's Medication Instructions Recorded Albuterol Inhaler [Ventolin Hfa 1 - 2 puff INHALATION RT-Q6H PRN 07/31/19 Inhaler] #1 inhaler Azithromycin [Zithromax Z-pack] 250 mg PO DIRECTED #6 tab 07/31/19 [id number] 6.25-5-10Mg/5Ml 5 ml PO Q4H 3 Days #90 ml 07/31/19 [Phenergan VC with Codeine] methylPREDNISolone Dose Pack 4 mg PO DIRECTED #21 package 07/31/19 [Medrol Dose Pack] Allergies Allergy/AdvReac Type Severity Reaction Status Date / Time No Known Allergies Allergy Verified 07/31/19 09:03 Review of Systems ROS Statement: Those systems with pertinent positive or pertinent negative responses have been documented in the HPI. ROS Other: All systems not noted in ROS Statement are negative. Past Medical History Past Medical History: Cancer, Hyperlipidemia, Prostate Disorder Additional Past Medical History / Comment(s): migraines, prostate cancer History of Any Multi-Drug Resistant Organisms: None Reported Past Surgical History: Adenoidectomy, Appendectomy, Cholecystectomy, Hernia Repair, Orthopedic Surgery, Prostate Surgery, Tonsillectomy Additional Past Surgical History / Comment(s): left knee arthroscopy, rt ankle tendon surgery, Past Anesthesia/Blood Transfusion Reactions: No Reported Reaction Past Psychological History: No Psychological Hx Reported Smoking Status: Former smoker Past Alcohol Use History: Occasional Past Drug Use History: None Reported - Past Family History Mother Family Medical History: Cancer, Pulmonary Embolus General Exam - General Exam Comments Initial Comments: 49-year-old male. Alert and oriented. Limitations: no limitations General appearance: alert, in no apparent distress Head exam: Present: atraumatic, normocephalic, normal inspection Eye exam: Present: normal appearance, PERRL, EOMI. Absent: scleral icterus, conjunctival injection, periorbital swelling ENT exam: Present: normal exam, mucous membranes moist Neck exam: Present: normal inspection. Absent: tenderness, meningismus, lymphadenopathy Respiratory exam: Present: decreased breath sounds, other. Absent: normal lung sounds bilaterally Cardiovascular Exam: Present: regular rate, normal rhythm, normal heart sounds. Absent: systolic murmur, diastolic murmur, rubs, gallop, clicks GI/Abdominal exam: Present: soft, normal bowel sounds. Absent: distended, tenderness, guarding, rebound, rigid Extremities exam: Present: normal inspection, full ROM, normal capillary refill. Absent: tenderness, pedal edema, joint swelling, calf tenderness Back exam: Present: normal inspection Neurological exam: Present: alert, oriented X3, CN II-XII intact Psychiatric exam: Present: normal affect, normal mood Skin exam: Present: warm, dry, intact, normal color. Absent: rash Course Vital Signs 07/31/19 07/31/19 07/31/19 07:50 09:15 09:28 Temperature 98.4 F Pulse Rate 92 84 88 Respiratory 18 Rate Blood Pressure 131/79 O2 Sat by Pulse 95 Oximetry 07/31/19 07/31/19 07/31/19 10:55 11:04 11:52 Temperature 98.1 F Pulse Rate 86 80 79 Respiratory 16 Rate Blood Pressure 106/74 O2 Sat by Pulse 96 Oximetry Medical Decision Making - Medical Decision Making Patient is a 49 year old male R pleurisy for on month. At this time patient CXR shows R infiltrate. Given breathing treatments and has improvment of lung sounds. Patient will be treated for pneumonia, given solumedrol and rocephin. Discussed patient needs to follow up promptly with PCP. Discussed return parameters. - Lab Data Result diagrams: 07/31/19 08:02 07/31/19 08:02 Lab Results 07/31/19 07/31/19 07/31/19 Range/Units 08:00 08:02 08:02 WBC 12.3 H (3.8-10.6) k/uL RBC 4.76 (4.30-5.90) m/uL Hgb 14.4 (13.0-17.5) gm/dL Hct 42.2 (39.0-53.0) % MCV 88.6 (80.0-100.0) fL MCH 30.3 (25.0-35.0) pg MCHC 34.2 (31.0-37.0) g/dL RDW 12.7 (11.5-15.5) % Plt Count 209 (150-450) k/uL Neutrophils % 83 % Lymphocytes % 8 % Monocytes % 5 % Eosinophils % 2 % Basophils % 0 % Neutrophils # 10.2 H (1.3-7.7) k/uL Lymphocytes # 1.0 (1.0-4.8) k/uL Monocytes # 0.7 (0-1.0) k/uL Eosinophils # 0.3 (0-0.7) k/uL Basophils # 0.0 (0-0.2) k/uL PT (9.0-12.0) sec INR (<1.2) APTT (22.0-30.0) sec Sodium 138 (137-145) mmol/L Potassium 4.3 (3.5-5.1) mmol/L Chloride 105 (98-107) mmol/L Carbon Dioxide 25 (22-30) mmol/L Anion Gap 8 mmol/L BUN 22 H (9-20) mg/dL Creatinine 0.92 (0.66-1.25) mg/dL Est GFR (CKD-EPI)AfAm >90 (>60 ml/min/1.73 sqM) Est GFR (CKD-EPI)NonAf >90 (>60 ml/min/1.73 sqM) Glucose 115 H (74-99) mg/dL Calcium 9.6 (8.4-10.2) mg/dL Magnesium 1.8 (1.6-2.3) mg/dL Total Bilirubin 0.8 (0.2-1.3) mg/dL AST 43 (17-59) U/L ALT 81 H (4-49) U/L Alkaline Phosphatase 126 (38-126) U/L Troponin I (0.000-0.034) ng/mL Total Protein 7.4 (6.3-8.2) g/dL Albumin 4.6 (3.5-5.0) g/dL Urine Color Yellow Urine Appearance Clear (Clear) Urine pH 5.5 (5.0-8.0) Ur Specific Stanley 1.025 (1.001-1.035) Urine Protein Negative (Negative) Urine Glucose (UA) Negative (Negative) Urine Ketones Negative (Negative) Urine Blood Negative (Negative) Urine Nitrite Negative (Negative) Urine Bilirubin Negative (Negative) Urine Urobilinogen <2.0 (<2.0) mg/dL Ur Leukocyte Esterase Negative (Negative) 07/31/19 07/31/19 Range/Units 08:02 08:02 WBC (3.8-10.6) k/uL RBC (4.30-5.90) m/uL Hgb (13.0-17.5) gm/dL Hct (39.0-53.0) % MCV (80.0-100.0) fL MCH (25.0-35.0) pg MCHC (31.0-37.0) g/dL RDW (11.5-15.5) % Plt Count (150-450) k/uL Neutrophils % % Lymphocytes % % Monocytes % % Eosinophils % % Basophils % % Neutrophils # (1.3-7.7) k/uL Lymphocytes # (1.0-4.8) k/uL Monocytes # (0-1.0) k/uL Eosinophils # (0-0.7) k/uL Basophils # (0-0.2) k/uL PT 9.5 (9.0-12.0) sec INR 0.9 (<1.2) APTT 24.8 (22.0-30.0) sec Sodium (137-145) mmol/L Potassium (3.5-5.1) mmol/L Chloride (98-107) mmol/L Carbon Dioxide (22-30) mmol/L Anion Gap mmol/L BUN (9-20) mg/dL Creatinine (0.66-1.25) mg/dL Est GFR (CKD-EPI)AfAm (>60 ml/min/1.73 sqM) Est GFR (CKD-EPI)NonAf (>60 ml/min/1.73 sqM) Glucose (74-99) mg/dL Calcium (8.4-10.2) mg/dL Magnesium (1.6-2.3) mg/dL Total Bilirubin (0.2-1.3) mg/dL AST (17-59) U/L ALT (4-49) U/L Alkaline Phosphatase (38-126) U/L Troponin I <0.012 (0.000-0.034) ng/mL Total Protein (6.3-8.2) g/dL Albumin (3.5-5.0) g/dL Urine Color Urine Appearance (Clear) Urine pH (5.0-8.0) Ur Specific Stanley (1.001-1.035) Urine Protein (Negative) Urine Glucose (UA) (Negative) Urine Ketones (Negative) Urine Blood (Negative) Urine Nitrite (Negative) Urine Bilirubin (Negative) Urine Urobilinogen (<2.0) mg/dL Ur Leukocyte Esterase (Negative) - Radiology Data Radiology results: report reviewed Chest x-ray shows mild right lower lobe infiltrate. Correlate for pneumonia. Disposition Clinical Impression: Pneumonia Disposition: HOME SELF-CARE Condition: Good Instructions (If sedation given, give patient instructions): Community Acquired Pneumonia (ED) Additional Instructions: Patient advised to use inhaler steroids and antibiotics as prescribed. Have close follow-up with your primary care doctor. Return to the emergency department if any alarming signs or symptoms occur. Prescriptions: methylPREDNISolone Dose Pack [Medrol Dose Pack] 4 mg PO DIRECTED #21 package Xiie-Iokz-Iww 6.25-5-10Mg/5Ml [Phenergan VC with Codeine] 5 ml PO Q4H 3 Days #90 ml Albuterol Inhaler [Ventolin Hfa Inhaler] 1 - 2 puff INHALATION RT-Q6H PRN #1 inhaler PRN Reason: Shortness Of Breath Azithromycin [Zithromax Z-pack] 250 mg PO DIRECTED #6 tab Is patient prescribed a controlled substance at d/c from ED?: Yes If prescribed controlled substance>3 days was MAPS reviewed?: Prescribed <3 Days If opioid is for acute pain is fill amount 7 days or less?: Yes If Rx opioid, was Start Talking consent form obtained?: Yes Referrals: Bryant Barbour DO [Primary Care Provider] - 1-2 days Time of Disposition: 11:36
[2019-07-31 09:59] LABS: Basophils % (A) 0 %; Eosinophils # (A) 0.3 k/uL (0-0.7); Eosinophils % (A) 2 %; HCT 42.2 % (39.0-53.0); HGB 14.4 gm/dL (13.0-17.5); Lymphocytes % (A) 8 %; MCH 30.3 pg (25.0-35.0); MCHC 34.2 g/dL (31.0-37.0); MCV 88.6 fL (80.0-100.0); Mean Platelet Volume 7.2; Monocytes # (A) 0.7 k/uL (0-1.0); Monocytes % (A) 5 %; Neutrophils # (A) 10.2 k/uL (1.3-7.7); Neutrophils % (A) 83 %; Platelet Count 209 k/uL (150-450); RBC 4.76 m/uL (4.30-5.90); RDW 12.7 % (11.5-15.5); WBC 12.3 k/uL (3.8-10.6)
[2019-07-31 10:05] LABS: ALT 81 U/L (4-49); AST 43 U/L (17-59); African American GFR (CKD) >90 (>60 ml/min/1.73 sqM); Albumin 4.6 g/dL (3.5-5.0); Alkaline Phosphatase 126 U/L (38-126); Anion Gap 8 mmol/L; Blood Urea Nitrogen 22 mg/dL (9-20); Calcium 9.6 mg/dL (8.4-10.2); Carbon Dioxide 25 mmol/L (22-30); Chloride 105 mmol/L (98-107); Glucose 115 mg/dL (74-99); Magnesium 1.8 mg/dL (1.6-2.3); Non-African American GFR(CKD) >90 (>60 ml/min/1.73 sqM); Potassium 4.3 mmol/L (3.5-5.1); Sodium 138 mmol/L (137-145); Total Bilirubin 0.8 mg/dL (0.2-1.3); Total Protein 7.4 g/dL (6.3-8.2)
[2019-07-31 10:09] LABS: INR 0.9 (<1.2); Partial Thromboplastin Time 24.8 sec (22.0-30.0); Prothrombin Time 9.5 sec (9.0-12.0)
[2019-07-31] MEDS ORDERED: guaiFENesin-Coden 100-10MG/5ML 10 ML CUP PO STA (10:31)
[2019-07-31] MEDS ORDERED: AZITHROMYCIN 500 MG TAB PO STA (10:33)
[2019-07-31] MEDS ORDERED: ALBUTEROL NEBULIZED 2.5 MG/3 ML INHALATION STA (10:33)
[2019-07-31] MEDS ORDERED: cefTRIAXone IN SWFI 1,000 MG/10 ML SYRINGE IVP STA (11:13)
[2019-07-31 11:52] VITALS: BP 106/74; PULSE 79; RESP 16; TEMP 98.1
== END 2019-07-31 11:55 | disposition home or self-care (01) ==
LOC: EC 07:46
DX: J18.9 Pneumonia, unspecified organism (principal); Z87.891 Personal history of nicotine dependence; Z85.46 Personal history of malignant neoplasm of prostate; Z90.89 Acquired absence of other organs; Z98.890 Other specified postprocedural states; Z83.6 Family history of other diseases of the respiratory system; Z53.8 Procedure and treatment not carried out for other reasons
CPT/HCPCS: 99285; 96374; 96375; 96361 ×3; 36415; 94640 ×2; 80053; 83735; 84484; 85025; 85610; 85730; 81003; 87040; 71046; J2930; J0696

== ENCOUNTER 2019-10-08 00:42 | Emergency (ER) | payer OTHER ==
[2019-10-08 00:48] VITALS: RESP 18
--- NOTE | 2019-10-08 01:23 | XR ---
EXAMINATION TYPE: XR chest 2V DATE OF EXAM: 10/08/2019 COMPARISON: 07/31/2019 HISTORY: Cough and congestion TECHNIQUE: FINDINGS: Heart and mediastinum are normal. Lungs are clear. Diaphragm is normal. Bony thorax appears normal. IMPRESSION: Normal chest. No change.
--- NOTE | 2019-10-08 01:34 | ED ---
General Adult HPI - General Chief complaint: Upper Respiratory Infection Stated complaint: Lightheaded, congested Time Seen by Provider: 10/08/19 00:50 Source: patient, RN notes reviewed Mode of arrival: ambulatory - History of Present Illness Initial comments: 49-year-old male with a past medical history of migraines, hyperlipidemia, prostate cancer presents to the emergency department for a chief complaint of cough. Patient states he has had a productive cough that just started this morning. States he is very congested as well. He denies sore throat or ear pain. He also feels as if he has body aches. Patient did have pneumonia about 2 months ago which symptoms resolved. However he is concerned he could've pneumonia again.Patient has no other complaints at this time including shortness of breath, chest pain, abdominal pain, nausea or vomiting, headache, or visual changes. - Related Data Previous Rx's Medication Instructions Recorded Albuterol Inhaler [Ventolin Hfa 1 - 2 puff INHALATION RT-Q6H PRN 07/31/19 Inhaler] #1 inhaler Azithromycin [Zithromax Z-pack] 250 mg PO DIRECTED #6 tab 07/31/19 Taav-Kdqg-Paq 6.25-5-10Mg/5Ml 5 ml PO Q4H 3 Days #90 ml 07/31/19 [Phenergan VC with Codeine] methylPREDNISolone Dose Pack 4 mg PO DIRECTED #21 package 07/31/19 [Medrol Dose Pack] Fluticasone Nasal [place] [Flonase 1 spray EA NOSTRIL DAILY 7 Days #1 10/08/19 Nasal [place]] bottle guaiFENesin [Mucinex] 600 mg PO Q12HR PRN #20 tablet.er 10/08/19 Allergies Allergy/AdvReac Type Severity Reaction Status Date / Time No Known Allergies Allergy Verified 10/08/19 00:49 Review of Systems ROS Statement: Those systems with pertinent positive or pertinent negative responses have been documented in the HPI. ROS Other: All systems not noted in ROS Statement are negative. Past Medical History Past Medical History: Cancer, Hyperlipidemia, Prostate Disorder Additional Past Medical History / Comment(s): migraines, prostate cancer History of Any Multi-Drug Resistant Organisms: None Reported Past Surgical History: Adenoidectomy, Appendectomy, Cholecystectomy, Hernia Repair, Orthopedic Surgery, Prostate Surgery, Tonsillectomy Additional Past Surgical History / Comment(s): left knee arthroscopy, rt ankle tendon surgery, Past Anesthesia/Blood Transfusion Reactions: No Reported Reaction Past Psychological History: No Psychological Hx Reported Smoking Status: Former smoker Past Alcohol Use History: Occasional Past Drug Use History: None Reported - Past Family History Mother Family Medical History: Cancer, Pulmonary Embolus General Exam General appearance: alert, in no apparent distress Head exam: Present: atraumatic, normocephalic, normal inspection Eye exam: Present: normal appearance, PERRL, EOMI. Absent: scleral icterus, conjunctival injection, periorbital swelling ENT exam: Present: normal exam, mucous membranes moist Neck exam: Present: normal inspection, full ROM. Absent: tenderness, meningismus, lymphadenopathy Respiratory exam: Present: normal lung sounds bilaterally. Absent: respiratory distress, wheezes, rales, rhonchi, stridor Cardiovascular Exam: Present: regular rate, normal rhythm, normal heart sounds. Absent: systolic murmur, diastolic murmur, rubs, gallop, clicks Neurological exam: Present: alert Course Vital Signs 10/08/19 00:46 Temperature 97.9 F Pulse Rate 78 Respiratory 18 Rate Blood Pressure 127/89 O2 Sat by Pulse 98 Oximetry Medical Decision Making - Medical Decision Making Influenza is negative. Chest x-ray shows normal chest. Patient likely has a viral upper respiratory infection. Given congestion he was prescribed Mucinex and nasal spray. He will follow up with primary care in 1-2 days. If he has any worsening symptoms he will return to the emergency department. - Lab Data Lab Results 10/08/19 Range/Units 00:50 Influenza Type A RNA Not Detected (Not Detectd) Influenza Type B (PCR) Not Detected (Not Detectd) Disposition Clinical Impression: Cough Disposition: HOME SELF-CARE Condition: Good Instructions (If sedation given, give patient instructions): Upper Respiratory Infection (ED) Additional Instructions: Please take medications as directed. Follow-up with primary care 1-2 days. If you have any worsening symptoms return to the emergency department. Prescriptions: Fluticasone Nasal [place] [Flonase Nasal [place]] 1 spray EA NOSTRIL DAILY 7 Days #1 bottle guaiFENesin [Mucinex] 600 mg PO Q12HR PRN #20 tablet.er PRN Reason: Congestion Is patient prescribed a controlled substance at d/c from ED?: No Referrals: Bryant Barbour DO [Primary Care Provider] - 1-2 days Time of Disposition: 01:35
[2019-10-08 02:08] VITALS: BP 106/69; PULSE 64; TEMP 97.6
== END 2019-10-08 02:07 | disposition home or self-care (01) ==
LOC: EC 00:42
DX: R05 Cough (principal); R09.89 Other specified symptoms and signs involving the circulatory and respiratory systems; Z87.891 Personal history of nicotine dependence; Z86.69 Personal history of other diseases of the nervous system and sense organs; Z98.890 Other specified postprocedural states
CPT/HCPCS: 71046; 87502; 99283

== ENCOUNTER 2020-01-06 10:29 | Emergency (ER) | payer OTHER ==
[2020-01-06 10:40] VITALS: BP 141/88; PULSE 75; RESP 18; TEMP 98.6
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
[2020-01-06] MEDS ORDERED: CEPHALEXIN 500MG STARTER PACK 4 CAP BTL PO STA (11:17)
[2020-01-06] MEDS ORDERED: IBUPROFEN 600 MG TAB PO STA (11:17)
[2020-01-06] MEDS ORDERED: ACET/COD 300 MG/30 MG STARTER PACK 6 TAB BTL PO STA (11:17)
== END 2020-01-06 11:42 | disposition home or self-care (01) ==
LOC: EC 10:29
DX: T20.15XA Burn of first degree of scalp [any part], initial encounter (principal); T20.112A Burn of first degree of left ear [any part, except ear drum], initial encounter; T31.0 Burns involving less than 10% of body surface; F17.200 Nicotine dependence, unspecified, uncomplicated; Y27.2XXA Contact with hot fluids, undetermined intent, initial encounter; Y93.89 Activity, other specified; Z85.46 Personal history of malignant neoplasm of prostate
CPT/HCPCS: 99283

== ENCOUNTER 2020-05-25 05:49 | Observation (INO) | payer OTHER ==
[2020-05-25] MEDS ORDERED: ASPIRIN 81 MG PO STA (05:59)
--- NOTE | 2020-05-25 06:05 | ED ---
Chest Pain HPI - General Chief Complaint: Chest Pain Stated Complaint: SHARON Time Seen by Provider: 05/25/20 05:59 Source: patient Mode of arrival: ambulatory Limitations: no limitations - History of Present Illness Initial Comments: 50yo male presenting for cc of chest discomfort. Patient states that when he eats for the past 3 days he feels like the food is getting stuck midchest denies regurgitation. Patient denies nausea, vomiting. He states it feels tight. He states sometimes it happens when he isnt eating. Denies arm pain, parathesias, back pain, jaw pain. He denies abdominal pain. Denies experiencing this in the past. Patient states he is able to eat and drink. Patient appears well nontoxic on arrival in no acute distress. Denies fevers, shortness of breath, denies any pain with a deep breath but states it feels tight with deep breath, denies upper respiratory symptoms. Remaining ROS (-). - Related Data Home Medications Medication Instructions Recorded Confirmed Simethicone [Gas-X] 62.5 mg PO DAILY PRN 05/25/20 05/25/20 Allergies Allergy/AdvReac Type Severity Reaction Status Date / Time No Known Allergies Allergy Verified 05/25/20 09:03 Review of Systems ROS Statement: Those systems with pertinent positive or pertinent negative responses have been documented in the HPI. ROS Other: All systems not noted in ROS Statement are negative. EKG Findings - EKG Comments: EKG Findings:: Ventricular rate 65 bpm, [place] interval 168 ms, QRS duration 86 pulse seconds car QT/QTC 408/424 this is normal sinus rhythm no ST elevation or depression is appreciated. EKG was compared to that of June 2019 that does not appear to be any acute changes very similar in morphology. Past Medical History Past Medical History: Cancer, Hyperlipidemia, Prostate Disorder Additional Past Medical History / Comment(s): migraines, prostate cancer History of Any Multi-Drug Resistant Organisms: None Reported Past Surgical History: Adenoidectomy, Appendectomy, Cholecystectomy, Hernia Repair, Orthopedic Surgery, Prostate Surgery, Tonsillectomy Additional Past Surgical History / Comment(s): left knee arthroscopy, rt ankle tendon surgery, Past Anesthesia/Blood Transfusion Reactions: No Reported Reaction Past Psychological History: No Psychological Hx Reported Smoking Status: Light tobacco smoker Past Alcohol Use History: Occasional Past Drug Use History: None Reported - Past Family History Mother Family Medical History: Cancer, Pulmonary Embolus Father Family Medical History: Diabetes Mellitus, Myocardial Infarction ([place]), Renal Disease Additional Family Medical History / Comment(s): Kidney stones. Father is 74 yrs old. General Exam - General Exam Comments Initial Comments: General: The patient is awake and alert, in no distress Eye: Pupils are equal, round and reactive to light, extra-ocular movements are intact. No nystagmus. There is normal conjunctiva bilaterally. No signs of icterus. Ears, nose, mouth and throat: There are moist mucous membranes and no oral lesions. Neck: The neck is supple, there is no tenderness or JVD. Cardiovascular: There is a regular rate and rhythm. No murmur, rub or gallop is appreciated. Respiratory: Lungs are clear to auscultation, respirations are non-labored, breath sounds are equal. No wheezes, stridor, rales, or rhonchi. Gastrointestinal: Soft, non-distended, non-tender abdomen without masses or organomegaly noted. There is no rebound or guarding present. Musculoskeletal: Normal ROM, no tenderness. Strength 5/5. Sensation intact. Pulses equal bilaterally 2+. Neurological: A&O x 3. CN II-XII intact grossly, There are no obvious motor or sensory deficits. Coordination appears grossly intact. Speech is normal. Skin: Skin is warm and dry and no rashes or lesions are noted. Psychiatric: Cooperative, appropriate mood & affect, normal judgment. Limitations: no limitations Course Vital Signs 05/25/20 05/25/20 05/25/20 05:55 07:55 08:46 Temperature 97.6 F Pulse Rate 75 86 76 Respiratory 18 16 16 Rate Blood Pressure 149/98 132/86 148/72 O2 Sat by Pulse 99 99 99 Oximetry Chest Pain MDM - MDM Labs unremarkable. Patient appears nontoxic however given age, history provided we'll keep her serial troponins, GI consult at this time is unclear if this is GI source versus atypical presenting chest pain. I discussed the case with attending provider who is agreeable to admission as well as care plan speaking with the admitting provider patient agreeable prefers [place] at this time Disposition Clinical Impression: Chest discomfort, Sensation of foreign body in esophagus Disposition: ADMITTED IP TO THIS HOSP Condition: Stable Is patient prescribed a controlled substance at d/c from ED?: No Time of Disposition: 08:48 Decision to Admit Reason: Admit from EC Decision Date: 05/25/20 Decision Time: 08:49
[2020-05-25 06:25] LABS: Basophils # (A) 0.1 k/uL (0-0.2); Basophils % (A) 1 %; Eosinophils # (A) 0.3 k/uL (0-0.7); Eosinophils % (A) 4 %; HCT 46.2 % (39.0-53.0); HGB 15.5 gm/dL (13.0-17.5); Lymphocytes # (A) 1.6 k/uL (1.0-4.8); Lymphocytes % (A) 20 %; MCH 30.7 pg (25.0-35.0); MCHC 33.6 g/dL (31.0-37.0); MCV 91.2 fL (80.0-100.0); Mean Platelet Volume 7.1; Monocytes # (A) 0.4 k/uL (0-1.0); Monocytes % (A) 5 %; Neutrophils # (A) 5.6 k/uL (1.3-7.7); Neutrophils % (A) 69 %; Platelet Count 232 k/uL (150-450); RBC 5.06 m/uL (4.30-5.90); RDW 12.7 % (11.5-15.5); WBC 8.1 k/uL (3.8-10.6)
[2020-05-25 06:33] LABS: ALT 43 U/L (4-49); AST 32 U/L (17-59); African American GFR (CKD) >90 (>60 ml/min/1.73 sqM); Albumin 4.3 g/dL (3.5-5.0); Alkaline Phosphatase 98 U/L (38-126); Anion Gap 6 mmol/L; Blood Urea Nitrogen 19 mg/dL (9-20); Calcium 9.3 mg/dL (8.4-10.2); Carbon Dioxide 27 mmol/L (22-30); Chloride 104 mmol/L (98-107); Glucose 128 mg/dL (74-99); Magnesium 2.1 mg/dL (1.6-2.3); Non-African American GFR(CKD) >90 (>60 ml/min/1.73 sqM); Potassium 4.1 mmol/L (3.5-5.1); Sodium 137 mmol/L (137-145); Total Protein 7.3 g/dL (6.3-8.2)
[2020-05-25 06:45] LABS: INR 0.9 (<1.2); Partial Thromboplastin Time 23.8 sec (22.0-30.0); Prothrombin Time 9.7 sec (9.0-12.0)
--- NOTE | 2020-05-25 06:48 | XR ---
EXAM: XR Chest, 2 Views CLINICAL HISTORY: Chest Pain TECHNIQUE: Frontal and lateral views of the chest. COMPARISON: 10/08/19 FINDINGS: Lungs: Minimal airspace opacities over right lower lung zone Pleural space: Unremarkable. No pneumothorax. Heart: Unremarkable. No cardiomegaly. Mediastinum: Unremarkable. Bones/joints: Unremarkable. IMPRESSION: Minimal right basilar atelectasis and/or pneumonia
[2020-05-25] MEDS ORDERED: NITROGLYCERIN SL TABS 0.4 MG TAB SUBLINGUAL PRN (08:43)
[2020-05-25] MEDS ORDERED: PANTOPRAZOLE 40 MG/10 ML VIAL IVP STA (08:47)
--- NOTE | 2020-05-25 08:57 | CT ---
EXAMINATION TYPE: CT chest angio for PE DATE OF EXAM: 05/25/2020 COMPARISON: Chest CT February 22, 2016. Chest x-ray earlier today. HISTORY: D-dimer elevated, chest discomfort CT DLP: 651.2 mGycm Automated exposure control for dose reduction was used. CONTRAST: CT Chest for pulmonary embolism performed with without and with IV Contrast, patient injected with 10 0 ml mL of Isovue 370. FINDINGS: LUNGS: Mild bibasilar linear scarring and/or atelectasis, left greater than right. No suspicious foca l consolidation or groundglass opacity. No pleural effusion or pneumothorax seen bilaterally. No conc erning nodules or masses. Tracheobronchial tree is patent. MEDIASTINUM: There is satisfactory enhancement of the pulmonary artery and its branches, there is no CT evidence for pulmonary embolism. There are no greater than 1 cm hilar or mediastinal lymph nodes. No cardiomegaly or significant pericardial effusion is seen. Satisfactory enhancement of the aort a without aneurysm or dissection. Mild coronary artery calcification is felt present. OTHER: Cholecystectomy clips. IMPRESSION: No CT evidence for acute pulmonary embolism. No suspicious acute pulmonary process.
--- NOTE | 2020-05-25 12:26 | P.CRDCN ---
History of Present Illness Consult date: 05/25/20 History of present illness: CHIEF COMPLAINT: Chest pain HISTORY OF PRESENT ILLNESS: This is a 50-year old male with a past medical history significant for prostate cancer and nicotine dependence. Patient follows in the office with Dr. Rob. We have been asked to see the patient in consultation for chest pain. Patient reports he has been having chest discomfort for the past few days. Patient reports the pain is in the middle of his chest and goes into his back. Patient states the pain seems to come on when he is eating and he feels like he is getting something stuck in his throat. He reports difficulty swallowing liquids and solids. He reports he took Gas-X on Saturday which relieved his chest discomfort. He took another dose of Gas-X yesterday. However his chest discomfort did not resolve. Patient reports a family history of heart disease and states his dad had a CABG when he was in his early 60s. DIAGNOSTICS: EKG reveals sinus rhythm with no signs of acute ischemia Chest xray minimal right basilar atelectasis and/or pneumonia CTA: Negative for pulmonary embolism Laboratory data: WBC 8.1. Hemoglobin 15.5. Platelet count 232. D-dimer 0.67. Sodium 137. Potassium 4.1. BUN 19. Creatinine 0.91. Magnesium 2.1. Current home cardiac medications include: None REVIEW OF SYSTEMS: At the time of my exam: CONSTITUTIONAL: Denies fever or chills. HEENT: Denies blurred vision, vision changes, or eye pain. Denies hemoptysis CARDIOVASCULAR: Denies chest pain, orthopnea, PND or palpitations RESPIRATORY: No shortness of breath. GASTROINTESTINAL: Denies abdominal pain. Denies nausea or vomiting. HEMATOLOGIC: Denies bleeding disorders. GENITOURINARY: Denies any blood in urine. SKIN: Denies pruitis. Denies rash. PHYSICAL EXAM: VITAL SIGNS: Reviewed. GENERAL: Well-developed in no acute distress. HEENT: Head is normocephalic. Pupils are equal, round. Sclerae anicteric. Mucous membranes of the mouth are moist. Neck supple. No JVD or thyromegaly LUNGS: Respirations even and unlabored. Lungs essentially clear to auscultation bilaterally. HEART: Regular rate and rhythm. S1 and S2 heard. ABDOMEN: Soft. Nondistended. Nontender. EXTREMITIES: Normal range of motion. No clubbing or cyanosis. Peripheral pulses intact. No lower extremity edema NEUROLOGIC: Awake and alert. Oriented x 3. ASSESSMENT: Chest pain, atypical Dysphagia Nicotine dependence History of prostate cancer Family history of heart disease PLAN: GI consulted. Await evaluation and recommendations An acute coronary event has been ruled out Obtain 2-D echo to assess cardiac structure and function Patient to undergo stress echo to assess for reversible ischemia Nurse practitioner note has been reviewed by physician. Signing provider agrees with the documented findings, assessment, and plan of care. Past Medical History Past Medical History: Cancer, Hyperlipidemia, Prostate Disorder Additional Past Medical History / Comment(s): migraines, prostate cancer History of Any Multi-Drug Resistant Organisms: None Reported Past Surgical History: Adenoidectomy, Appendectomy, Cholecystectomy, Hernia Repair, Orthopedic Surgery, Prostate Surgery, Tonsillectomy Additional Past Surgical History / Comment(s): left knee arthroscopy, rt ankle tendon surgery, Past Anesthesia/Blood Transfusion Reactions: No Reported Reaction Past Psychological History: No Psychological Hx Reported Smoking Status: Light tobacco smoker Past Alcohol Use History: Occasional Past Drug Use History: None Reported - Past Family History Mother Family Medical History: Cancer, Pulmonary Embolus Additional Family Medical History / Comment(s): Mother of lung cancer. She was a smoker. Father Family Medical History: Diabetes Mellitus, Myocardial Infarction ([place]), Renal Disease Additional Family Medical History / Comment(s): Kidney stones. Father is 74 yrs old. Medications and Allergies Home Medications Medication Instructions Recorded Confirmed Type Simethicone [Gas-X] 62.5 mg PO DAILY PRN 05/25/20 05/25/20 History Allergies Allergy/AdvReac Type Severity Reaction Status Date / Time No Known Allergies Allergy Verified 05/25/20 09:03 Physical Exam Vitals: Vital Signs Temp Pulse Pulse Resp BP BP Pulse Ox 05/25/20 09:54 97.9 F 66 117/83 95 05/25/20 08:46 76 16 148/72 99 05/25/20 07:55 86 16 132/86 99 05/25/20 05:55 97.6 F 75 18 149/98 99 Intake and Output 05/24/20 05/25/20 05/25/20 22:59 06:59 14:59 Other: # Voids 1 Weight 121.155 kg 121.155 kg Results 05/25/20 06:17 05/25/20 06:17 Cardiac Enzymes 05/25/20 05/25/20 05/25/20 Range/Units 06:17 06:17 09:38 AST 32 (17-59) U/L Troponin I <0.012 <0.012 (0.000-0.034) ng/mL Coagulation 05/25/20 Range/Units 06:17 PT 9.7 (9.0-12.0) sec APTT 23.8 (22.0-30.0) sec CBC 05/25/20 Range/Units 06:17 WBC 8.1 (3.8-10.6) k/uL RBC 5.06 (4.30-5.90) m/uL Hgb 15.5 (13.0-17.5) gm/dL Hct 46.2 (39.0-53.0) % Plt Count 232 (150-450) k/uL Comprehensive Metabolic Panel 05/25/20 Range/Units 06:17 Sodium 137 (137-145) mmol/L Potassium 4.1 (3.5-5.1) mmol/L Chloride 104 (98-107) mmol/L Carbon Dioxide 27 (22-30) mmol/L BUN 19 (9-20) mg/dL Creatinine 0.91 (0.66-1.25) mg/dL Glucose 128 H (74-99) mg/dL Calcium 9.3 (8.4-10.2) mg/dL AST 32 (17-59) U/L ALT 43 (4-49) U/L Alkaline Phosphatase 98 (38-126) U/L Total Protein 7.3 (6.3-8.2) g/dL Albumin 4.3 (3.5-5.0) g/dL Current Medications Generic Name Dose Route Start Last Admin Trade Name Freq PRN Reason Stop Dose Admin Aspirin 81 mg 05/26/20 09:00 Aspirin 81 Mg PO DAILY EVAN Nitroglycerin 0.4 mg 05/25/20 08:43 Nitroglycerin Sl Tabs 0.4 Mg Tab SUBLINGUAL Q5M PRN Chest Pain Pantoprazole Sodium 40 mg 05/25/20 21:00 Pantoprazole 40 Mg/10 Ml Vial IVP BID EVAN Intake and Output 05/24/20 05/25/20 05/25/20 22:59 06:59 14:59 Other: # Voids 1 Weight 121.155 kg 121.155 kg Patient Weight 05/26/20 06:59 Weight 121.155 kg 05/25/20 06:17 05/25/20 06:17
--- NOTE | 2020-05-25 12:52 | P.STRESS ---
- Stress Test Note Stress Test Results/Findings: Exam Performed: Exam Date: Reason for Exam: Height: 6 ft 2 in Weight: 121.155 kg Protocol: Stage: Duration of Exercise: Resting Heart Rate: Resting Blood Pressure: Maximum Achieved Heart Rate: Maximum Achieved Blood Pressure: 85% PMHR: 100% PMHR: METS: Technologist Comment: Stress Test Results/Findings: This is a 50-year-old gentleman who was admitted to the hospital with complaints of chest tightness. History of smoking and family history of ischemic heart disease. Stress data:. Baseline EKG showed sinus rhythm at all. [place] interval, QRS duration. Blood pressure at rest is 120/85, pulse rate of 57. Patient walked on the Brian protocol for 9 minutes and 47 seconds achieving a maximum heart rate of 147 with a blood pressure 160/80. Patient did not experience any chest pain . Patient reached 87% of the predicted heart rate. Echo data: Baseline echo images show normal wall motion and thickening. Exercise echo images showed augmentation of wall motion and thickening in all segments. Final impression: #1. Negative stress test #2. Negative stress echo.
--- NOTE | 2020-05-25 13:06 | ECHOS ---
Stress Test Results/Findings: Exam Performed: Stress Echo Exam Date: 05/25/2020 Reason for Exam: Chest Pain Height: 6 ft 2 in Weight: 121.155 kg Protocol: Stress Echo Stage: 4 Duration of Exercise: 9:47 Resting Heart Rate: 57 Resting Blood Pressure: 121/85 Maximum Achieved Heart Rate: 147 Maximum Achieved Blood Pressure: 160/81 85% PMHR: 144 100% PMHR: 169 METS: 11.3 Technologist Comment: Stress Test Results/Findings: This is a 50-year-old gentleman who was admitted to the hospital with complaints of chest tightness. History of smoking and family history of ischemic heart disease. Stress data:. Baseline EKG showed sinus rhythm at all. AL interval, QRS duration. Blood pressure at rest is 120/85, pulse rate of 57. Patient walked on the Brian protocol for 9 minutes and 47 seconds achieving a maximum heart rate of 147 with a blood pressure 160/80. Patient did not experience any chest pain . Patient reached 87% of the predicted heart rate. Echo data: Baseline echo images show normal wall motion and thickening. Exercise echo images showed augmentation of wall motion and thickening in all segments. Final impression: #1. Negative stress test #2. Negative stress echo. SOL
--- NOTE | 2020-05-25 15:23 | CONS ---
CONSULTATION DATE OF DICTATION: 05/25/2020 REASON FOR CONSULTATION: Chest pain and dysphagia for the last few weeks' duration. HISTORY OF PRESENT ILLNESS: The patient is a 50-year-old pleasant white male who was admitted to the hospital because of intermittent chest pain radiating to the back, on and off for the last few weeks' duration. His symptoms are worse with eating, and sometimes he has these symptoms even without eating. He feels like he is having spasms in the esophagus, mostly in the mid esophagus and in the epigastric area. He tried to take some Gas-X, with no relief. He continued to have worsening symptoms and hence yesterday he came into the emergency room for further evaluation. He was evaluated by Cardiology and he just underwent a stress test; according to the patient, that was reported as normal. The patient does complain of occasional heartburn. Denies any odynophagia. He has intermittent dysphagia to solids. He recalls having an upper endoscopy done several years ago and was diagnosed with a hiatal hernia. PAST MEDICAL HISTORY: His past medical history is significant for history of prostate cancer, hyperlipidemia. MEDICATIONS AT HOME: None. PAST SURGICAL HISTORY: Adenoidectomy, appendectomy, cholecystectomy, hernia repair, prostate surgery, tonsillectomy, right ankle tendon repair. ALLERGIES: NO KNOWN DRUG ALLERGIES. SOCIAL HISTORY: Occasional smoker. No alcohol use. FAMILY HISTORY: Mother had DVT and PE. Father had coronary artery disease, diabetes mellitus and chronic kidney disease. REVIEW OF SYSTEMS: CARDIOPULMONARY: No chest pain or shortness of breath. GENITOURINARY: No dysuria or hematuria. MUSCULOSKELETAL: Unremarkable. SKIN: Unremarkable. ENDOCRINE: Unremarkable. PSYCHIATRIC: Unremarkable. NEUROLOGY: Unremarkable. ENT/VISION: Unremarkable. CONSTITUTIONAL: No recent weight loss. No fever, chills, night sweats. PHYSICAL EXAMINATION: Blood pressure is 117/83, pulse rate 66, temperature 97.9. HEENT examination unremarkable. Conjunctivae pink. Sclerae anicteric. Oral cavity no lesions. NECK: No JVD or lymph node enlargement. CHEST: Clear to auscultation. HEART: Regular rate and rhythm. ABDOMEN: Soft. Bowel sounds are positive. No organomegaly. EXTREMITIES: No pedal edema. NEUROLOGIC: H is alert and oriented x3. No focal deficits. LABS: Labs from today show WBC 8.1, hemoglobin 15.5, platelets normal. Basic metabolic panel is within normal limits, AST, ALT, T-bilirubin and alkaline phosphatase are normal. IMPRESSION: This is a patient who presented with atypical chest pain associated with spasms of the esophagus for the last 3-4 weeks' duration. He has been having these symptoms intermittently. The usually last for 5 minutes and then resolve. During these episodes he feels like he has some dysphagia. No odynophagia. He has occasional heartburn. He did have cardiac evaluation and had a stress test done; according to the patient, the test was negative. Hence we are dealing with esophageal causes of chest discomfort, possibly gastroesophageal reflux disease versus esophageal spasms. RECOMMENDATIONS: 1. Start on Protonix 40 mg daily. 2. Start him on a clear liquid diet and advance as tolerated. 3. Will proceed with an upper endoscopy tomorrow. Discussed with the patient risks, benefits and complications, and he is agreeable to it. Thank you for this consultation. MMODL / IJN: [id number] /
[2020-05-25] MEDS: PANTOPRAZOLE 40 MG/10 ML VIAL IVP SCH (20:23)
--- NOTE | 2020-05-25 22:47 | P.HPIM ---
History of Present Illness H&P Date: 05/25/20 Chief Complaint: Chest tightness Patient is a 50-year-old male with a known history of prostate cancer status post prostatectomy, migraine headaches, hyperlipidemia and ongoing nicotine addiction came to ER with the complaints of chest discomfort in the mid retrosternal and extending from epigastric region for the past 3 days it has been getting worse and felt like food getting stuck in the mid chest.Patient has been having intermittent chest discomfort and dysphagia. Does have some associated nausea. No radiation of the pain. No associated vomiting. No shortness of breath. No diaphoresis. No fever no chills. No cough or sputum production. No complaints of abdominal pain. Denied any unusual food intake recently. No recent travel. No diarrhea. Chest x-ray showed minimal right basilar atelectasis or pneumonia CT angiogram was done due to slight elevated D-dimer level. No CT evidence of acute pulmonary embolism. No suspicious acute pulmonary process. EKG showed normal sinus rhythm Stress echocardiogram was done. Laboratory data showed D-dimer 0.67, troponin x3 - and remaining lab data reviewed. Patient has been afebrile. Review of Systems Constitutional: Patient denies any fever or chills . No generalized weakness or weight loss. Abdomen: Patient denied nausea vomiting and diarrhea and abdominal pain. Cardiovascular: Patient does have chest tightness. No short of breath no palpitations. Respiratory: patient denied any cough or sputum production. No shortness of breath Neurologic: Patient denied any numbness or tingling headache. Musculoskeletal: Patient denies any complaints of joint swelling or deformity. Skin: Negative Psychiatric: Negative Endocrine: No heat or cold intolerance. No recent weight gain. Genitourinary: No dysuria or hematuria. All other 14 point ROS negative except the above Past Medical History Past Medical History: Cancer, Hyperlipidemia, Prostate Disorder Additional Past Medical History / Comment(s): migraines, prostate cancer History of Any Multi-Drug Resistant Organisms: None Reported Past Surgical History: Adenoidectomy, Appendectomy, Cholecystectomy, Hernia Repair, Orthopedic Surgery, Prostate Surgery, Tonsillectomy Additional Past Surgical History / Comment(s): left knee arthroscopy, rt ankle tendon surgery, Past Anesthesia/Blood Transfusion Reactions: No Reported Reaction Past Psychological History: No Psychological Hx Reported Smoking Status: Light tobacco smoker Past Alcohol Use History: Occasional Past Drug Use History: None Reported - Past Family History Mother Family Medical History: Cancer, Pulmonary Embolus Additional Family Medical History / Comment(s): Mother of lung cancer. She was a smoker. Father Family Medical History: Diabetes Mellitus, Myocardial Infarction ([place]), Renal Disease Additional Family Medical History / Comment(s): Kidney stones. Father is 74 yrs old. Medications and Allergies Home Medications Medication Instructions Recorded Confirmed Type Simethicone [Gas-X] 62.5 mg PO DAILY PRN 05/25/20 05/25/20 History Allergies Allergy/AdvReac Type Severity Reaction Status Date / Time No Known Allergies Allergy Verified 05/25/20 09:03 Physical Exam Vitals: Vital Signs Temp Pulse Pulse Resp BP BP Pulse Ox 05/25/20 09:54 97.9 F 66 117/83 95 05/25/20 08:46 76 16 148/72 99 05/25/20 07:55 86 16 132/86 99 05/25/20 05:55 97.6 F 75 18 149/98 99 Intake and Output 05/24/20 05/25/20 05/25/20 22:59 06:59 14:59 Other: # Voids 1 Weight 121.155 kg 121.155 kg PHYSICAL EXAMINATION: Patient is lying in the bed comfortably, no acute distress, awake alert and oriented.. HEENT: Normocephalic. Neck is supple. Pupils reactive. Nostrils clear. Oral cavity is moist. Ears reveal no drainage. Neck reveals no JVD, carotid bruits, or thyromegaly. CHEST EXAMINATION: Trachea is central. Symmetrical expansion. Lung gonzales clear to auscultation and percussion. CARDIAC: Normal S1, S2 with no gallops. No murmurs ABDOMEN: Soft. Bowel sounds normal. No organomegaly. No abdominal bruits. Extremities: reveal no edema. No clubbing or cyanosis Neurologically awake, alert, oriented x3 with well-coordinated movements. No focal deficits noted Skin: No rash or skin lesions. Psychiatric: Coperative. Nonsuicidal Musculoskeletal: No joint swelling or deformity. Normal range of motion. Results CBC & Chem 7: 05/25/20 06:17 05/25/20 06:17 Labs: Abnormal Lab Results - Last 24 Hours (Table) 05/25/20 05/25/20 Range/Units 06:17 06:17 D-Dimer 0.67 H (<0.60) mg/L FEU Glucose 128 H (74-99) mg/dL Thrombosis Risk Factor Assmnt - DVT/VTE Prophylaxis DVT/VTE Prophylaxis: Pharmacologic Prophylaxis ordered - Choose All That Apply Any of the Below Risk Factors Present?: Yes Each Factor Represents 1 point: Age 41-60 years, Obesity (BMI >25) Other Risk Factors: Yes Each Risk Factor Represents 2 Points: Malignancy Each Risk Factor Represents 3 Points: Family history of DVT/PE Other congenital or acquired thrombophilia - If yes, enter type in comment: No Thrombosis Risk Factor Assessment Total Risk Factor Score: 7 Thrombosis Risk Factor Assessment Level: High Risk Assessment and Plan Assessment: Atypical chest pain. Ruled out ACS. Stress echocardiogram was done. Dysphagia with feeling tightness with food ingestion. GI evaluation. History of prostate cancer status post prostatectomy Migraine headaches Hyperlipidemia Ongoing nicotine addiction DVT prophylaxis Plan: Patient will be continued on telemetry monitoring. Stress echocardiogram was negative. Serial troponins negative. GI is planning for EGD tomorrow and continue with clear liquid diet and n.p.o. after midnight. Continue with PPI Smoking cessation has been counseled extensively. Time with Patient: Greater than 30
[2020-05-26 05:48] LABS: Cholesterol 221 mg/dL (<200); HDL Cholesterol 38 mg/dL (40-60); LDL Cholesterol,Calculated 141 mg/dL (0-99); Triglycerides 211 mg/dL (<150)
[2020-05-26] MEDS: PANTOPRAZOLE 40 MG/10 ML VIAL IVP SCH (08:37)
[2020-05-26 08:40] VITALS: RESP 14
[2020-05-26] MEDS ORDERED: ASPIRIN 81 MG PO SCH (09:00)
[2020-05-26] MEDS ORDERED: ASPIRIN 325 MG TAB PO SCH (09:00)
--- NOTE | 2020-05-26 10:00 | ECHOF ---
Referral Reason:chest pain MEASUREMENTS -------- HEIGHT: 182.9 cm WEIGHT: 121.1 kg BP: IVSd: 1.3 cm (0.6 - 1.1) LVIDd: 3.8 cm (3.9 - 5.3) LVPWd: 1.6 cm (0.6 - 1.1) IVSs: 2.2 cm LVIDs: 2.4 cm LVPWs: 2.1 cm LAESV Index (A-L): 31.61 ml/m Ao Diam: 3.5 cm (2.0 - 3.7) AV Cusp: 2.6 cm (1.5 - 2.6) LA Diam: 3.5 cm (2.7 - 3.8) MV EXCURSION: 10.955 mm (> 18.000) MV EF SLOPE: 54 mm/s (70 - 150) EPSS: 1.2 cm MV E Sharad: 0.46 m/s MV DecT: 195 ms MV A Sharad: 0.58 m/s MV E/A Ratio: 0.79 AR PHT: 191 ms RAP: 5.00 mmHg RVSP: 31.01 mmHg FINDINGS -------- This was a technically good study. The left ventricular size is normal. There is moderate concentric left ventricular hypertrophy. O verall left ventricular systolic function is normal with, an EF between 55 - 60 %. The diastolic fi lling pattern is normal for the age of the patient 5.99. The right ventricle is normal in size. LA is midly dilated 29-33ml/m2. The right atrial size is normal. The aortic valve is trileaflet and appears structurally normal. Trace amount of aortic regurgitatio n. The mitral valve is normal. The mitral valve leaflets are mild to moderately thickened. There is trace mitral regurgitation. The tricuspid valve appears structurally normal. Mild tricuspid regurgitation present. Right vent ricular systolic pressure is normal at < 35 mmHg. There is no pulmonic regurgitation present. The aortic root is dilated measuring 3.9 cm Normal inferior vena cava with normal inspiratory collapse consistent with estimated right atrial pre ssure of 5 mmHg. There is no pericardial effusion. CONCLUSIONS -------- 1. The left ventricular size is normal. 2. There is moderate concentric left ventricular hypertrophy. 3. Overall left ventricular systolic function is normal with, an EF between 55 - 60 %. 4. The diastolic filling pattern is normal for the age of the patient 5.99 5. LA is midly dilated 29-33ml/m2. 6. Trace amount of aortic regurgitation. 7. The mitral valve leaflets are mild to moderately thickened. 8. There is trace mitral regurgitation. 9. Mild tricuspid regurgitation present. 10. The aortic root is dilated measuring 3.9 cm 11. There is no pericardial effusion. FLASK CARRIER: Maryellen Steele RDCS
--- NOTE | 2020-05-26 12:26 | P.PN ---
Subjective Progress Note Date: 05/26/20 CHIEF COMPLAINT: Chest pain HISTORY OF PRESENT ILLNESS: Patient examined this morning at the bedside. Patient denies any further episodes of chest pain or pressure. Denies shortness of breath. Echocardiogram completed revealing ejection fraction between 55 and 60%, trace mitral regurgitation, mild mitral regurgitation. Patient underwent stress test yesterday which was negative for stress-induced ischemia. PHYSICAL EXAM: VITAL SIGNS: Reviewed. GENERAL: Well-developed in no acute distress. HEENT: Head is normocephalic. Pupils are equal, round. Sclerae anicteric. Mucous membranes of the mouth are moist. Neck supple. No JVD or thyromegaly LUNGS: Respirations even and unlabored. Lungs essentially clear to auscultation bilaterally. HEART: Regular rate and rhythm. S1 and S2 heard. ABDOMEN: Soft. Nondistended. Nontender. EXTREMITIES: Normal range of motion. No clubbing or cyanosis. Peripheral pulses intact. No lower extremity edema NEUROLOGIC: Awake and alert. Oriented x 3. ASSESSMENT: Chest pain, atypical Dysphagia Nicotine dependence History of prostate cancer Family history of heart disease PLAN: GI has evaluated patient and he is scheduled for EGD Patient is stable for discharge from a cardiac perspective. We will sign off. Please reconsult if needed. Nurse practitioner note has been reviewed by physician. Signing provider agrees with the documented findings, assessment, and plan of care. Objective - Vital Signs Vital signs: Vital Signs Temp 97.8 F 05/26/20 08:39 Pulse 63 05/26/20 08:39 Resp 14 05/26/20 08:39 BP 110/72 05/26/20 08:39 Pulse Ox 95 05/26/20 08:39 Intake & Output 05/25/20 05/26/20 05/26/20 18:59 06:59 18:59 Weight 121.15 kg Other: # Voids 2 2 - Labs CBC & Chem 7: 05/25/20 06:17 05/25/20 06:17 Labs: Abnormal Lab Results - Last 24 Hours (Table) 05/25/20 Range/Units 06:17 Triglycerides 211 H (<150) mg/dL Cholesterol 221 H (<200) mg/dL LDL Cholesterol, Calc 141 H (0-99) mg/dL HDL Cholesterol 38 L (40-60) mg/dL
[2020-05-26] MEDS ORDERED: PROPOFOL 10 MG/ML 20 ML VIAL IV ONE (14:23)
[2020-05-26] MEDS ORDERED: LIDOCAINE 1% INJ 10MG/ML (20 ML MDV) ONE (14:23)
[2020-05-26] MEDS ORDERED: fentaNYL (PF) 50 MCG/ML 2 ML AMP ONE (14:23)
[2020-05-26] MEDS ORDERED: MIDAZOLAM 2 MG/2 ML VIAL ONE (14:23)
[2020-05-26] MEDS ORDERED: IV FLUID CONTINUATION 1,000 ML IV ONE (14:26)
--- NOTE | 2020-05-26 14:39 | P.DS ---
Providers Date of admission: 05/25/20 09:10 Expected date of discharge: 05/26/20 Attending physician: Bryant Barbuor Consults: 05/25/20 08:43 Consult Physician Routine Consulting Provider: Cyndi Mcginnis Consult Reason/Comments: foriegn body sensation test Do you want consulting provider notified?: Yes Primary care physician: Bryant Barbour [facility] Course: Final Diagnoses: Atypical chest pain. Ruled out ACS. Stress echocardiogram completed reporting negative. Dysphagia with feeling tightness with food ingestion. GI evaluation, EGD pending. History of prostate cancer status post prostatectomy Migraine headaches Hyperlipidemia Ongoing nicotine addiction DVT prophylaxis Hospital course: This is a 50-year-old gentleman admitted with atypical chest pain, dysphagia with mid epigastric/midsternal squeezing sensation, which patient states subsided last night. Evaluated by cardiology, Completed stress test reporting negative. Denies any chest pain or palpitations or shortness of breath. Denies cough, congestion. Denies lightheadedness, dizziness or focal deficits. Evaluated by GI, NPO scheduled for EGD today. Cleared by cardiology for discharge. Patient will be discharged home today in a stable condition with guarded prognosis pending EGD results, final DC recommendations and clearance from GI. Smoking cessation reinforced. The impression and plan of care has been dictated as directed. : I performed a history and examination of this patient, discussed the same with the dictator. I agree with the dictator's note ,documented as a scribe. Any additional findings or plans will be noted. Patient Condition at Discharge: Stable Plan - Discharge Summary Discharge Rx Participant: No New Discharge Prescriptions: New Pantoprazole Sodium [Protonix] 40 mg PO DAILY #30 tablet.dr Clark Action Simethicone [Gas-X] 62.5 mg PO DAILY PRN PRN Reason: Gi Upset Discharge Medication List Simethicone [Gas-X] 62.5 mg PO DAILY PRN 05/25/20 [History] Pantoprazole Sodium [Protonix] 40 mg PO DAILY #30 tablet. 05/26/20 [Rx] Follow up Appointment(s)/Referral(s): Seth Rob MD [STAFF PHYSICIAN] - 2 Weeks Bryant Barbour DO [Primary Care Provider] - 3 Days Activity/Diet/Wound Care/Special Instructions: Pending EGD results, final DC recommendations and clearance from GI.
--- NOTE | 2020-05-26 14:40 | P.PCN ---
Date of Procedure: 05/26/20 Procedure(s) Performed: BRIEF HISTORY: Patient is a 50-year-old, pleasant, white male admitted hospital with severe chest pain and intermittent esophageal spasms every time he eats for the last 3 or 4 weeks' duration. Hemoglobin the emergency room and had cardiac workup done that was negative. We'll start on Protonix 40 mg daily and symptoms are improving. He scheduled for an upper endoscopy to rule out esophagitis. PROCEDURE PERFORMED: Esophagogastroduodenoscopy with biopsy. PREOPERATIVE DIAGNOSIS: Chronic epigastric pain/atypical chest and dysphagia of 3-4 weeks duration. IV sedation per anesthesia. PROCEDURE: After informed consent was obtained, the patient was brought into the endoscopy unit. IV sedation was administered by Anesthesia under continuous monitoring. Initially the Olympus GIF-140 video endoscope was inserted into the mouth. Esophagus intubated without any difficulty. It was gradually advanced into the stomach and duodenum and carefully examined. The bulb and the second part of the duodenum some duodenitis and biopsies were done from this area.. The scope at this time was withdrawn to the stomach, adequately insufflated with air, and upon careful examination, mucosa of the antrum, had mild erythema this was biopsied.Rest of the body, cardia and the fundus appeared normal. The scope was then withdrawn into the esophagus. The GE junction was located at 43 cm from the incisors. There were 2 superficial erosions consistent with LA grade B reflux esophagitis. The rest of esophagus appeared normal. There were no erosions or ulcerations seen and the patient tolerated the procedure well. IMPRESSION: 1. LA grade B reflux esophagitis. 2. Mild antral gastritis and duodenitis. RECOMMENDATIONS: The findings of this examination were discussed with the patient . Hewill be started on regular d He can be discharged on Protonix 40 mg daily. He was advised to follow up in office in . 6 weeks
[2020-05-26 15:35] VITALS: BP 112/82; PULSE 62; TEMP 98.2
== END 2020-05-26 16:14 | disposition home or self-care (01) ==
LOC: EC 05:49 → 1SOBS 09:10
PROVIDERS: ADMIT Family Medicine; ATTEND Family Medicine
DX: R07.89 Other chest pain (principal); K21.00 Gastro-esophageal reflux disease with esophagitis, without bleeding; K29.50 Unspecified chronic gastritis without bleeding; K29.80 Duodenitis without bleeding; E78.5 Hyperlipidemia, unspecified; G43.909 Migraine, unspecified, not intractable, without status migrainosus; F17.200 Nicotine dependence, unspecified, uncomplicated; R13.10 Dysphagia, unspecified; G47.33 Obstructive sleep apnea (adult) (pediatric); E66.9 Obesity, unspecified; Z68.34 Body mass index [BMI] 34.0-34.9, adult; Z79.899 Other long term (current) drug therapy; Z85.46 Personal history of malignant neoplasm of prostate; Z90.49 Acquired absence of other specified parts of digestive tract; Z90.79 Acquired absence of other genital organ(s); Z82.49 Family history of ischemic heart disease and other diseases of the circulatory system; Z83.3 Family history of diabetes mellitus; Z84.1 Family history of disorders of kidney and ureter; Z80.1 Family history of malignant neoplasm of trachea, bronchus and lung; Z81.2 Family history of tobacco abuse and dependence
CPT/HCPCS: 96376 ×2; 96374; 99285; 36415; 93005 ×2; 93306; 93351; 85379; 88305; 80061; 80053; 83735; 84484; 85025; 85610; 85730; 71046; 71275; 43239; G0378 ×2; J2250; J2001; J3010; J2704; C9113 ×2; Q9967

== ENCOUNTER → 2020-11-18 | Outpatient (CLI) | payer OTHER ==
--- NOTE | 2020-11-18 10:58 | XR ---
EXAMINATION TYPE: XR lumbar spine 2 or 3V DATE OF EXAM: 11/18/2020 CLINICAL HISTORY: pain TECHNIQUE: Three views of the lumbar spine are submitted. COMPARISON: None. FINDINGS: There are 5 lumbar type vertebral bodies identified. The lumbar spine shows satisfactory alignment w ithout evidence of acute fracture or dislocation. Vertebral body heights are within normal limits. Mild degenerative disc space narrowing and spondylosis. Facet joint arthropathy. The overlying soft tissue appears unremarkable. IMPRESSION: No acute fracture or dislocation is seen in the lumbar spine. ICD 10 NO FRACTURE, INITIAL EVALUATION
== END | disposition home or self-care (01) ==
LOC: RADXRMAIN 10:38
PROVIDERS: ATTEND Emergency Medicine
DX: M54.5 Low back pain (principal)
CPT/HCPCS: 72100

== ENCOUNTER 2020-12-08 15:18 | Emergency (ER) | payer OTHER ==
[2020-12-08 15:21] VITALS: PULSE 80; RESP 18
--- NOTE | 2020-12-08 15:39 | ED ---
General Adult HPI - General Chief complaint: Extremity Problem,Nontraumatic Stated complaint: knee & leg swelling Time Seen by Provider: 12/08/20 15:27 Source: patient, RN notes reviewed, old records reviewed Mode of arrival: ambulatory Limitations: no limitations - History of Present Illness Initial comments: 50-year-old male presenting for evaluation of right knee pain. Pain is been present for the past 2 days. He denies fever or constitutional symptoms. Denies chest pain or dyspnea. He is noted pain and swelling in his right knee and right calf. He has some pain extending down towards the ankle. He denies any injury, denies overuse or twisting. No falls or trauma. Patient's has no history of diabetes, is otherwise healthy. - Related Data Home Medications Medication Instructions Recorded Confirmed Simethicone [Gas-X] 62.5 mg PO DAILY PRN 05/25/20 05/25/20 Previous Rx's Medication Instructions Recorded Pantoprazole Sodium [Protonix] 40 mg PO DAILY #30 tablet. 05/26/20 Ibuprofen [Motrin] 600 mg PO Q8HR PRN #24 tab 12/08/20 Allergies Allergy/AdvReac Type Severity Reaction Status Date / Time No Known Allergies Allergy Verified 05/25/20 09:03 Review of Systems ROS Statement: Those systems with pertinent positive or pertinent negative responses have been documented in the HPI. ROS Other: All systems not noted in ROS Statement are negative. Past Medical History Past Medical History: Cancer, Hyperlipidemia, Prostate Disorder Additional Past Medical History / Comment(s): migraines, prostate cancer History of Any Multi-Drug Resistant Organisms: None Reported Past Surgical History: Adenoidectomy, Appendectomy, Cholecystectomy, Hernia Repair, Orthopedic Surgery, Prostate Surgery, Tonsillectomy Additional Past Surgical History / Comment(s): left knee arthroscopy, rt ankle tendon surgery, Past Anesthesia/Blood Transfusion Reactions: No Reported Reaction Past Psychological History: No Psychological Hx Reported Smoking Status: Light tobacco smoker Past Alcohol Use History: Occasional Past Drug Use History: None Reported - Past Family History Mother Family Medical History: Cancer, Pulmonary Embolus Additional Family Medical History / Comment(s): Mother of lung cancer. She was a smoker. Father Family Medical History: Diabetes Mellitus, Myocardial Infarction ([place]), Renal Disease Additional Family Medical History / Comment(s): Kidney stones. Father is 74 yrs old. General Exam Limitations: no limitations General appearance: alert, in no apparent distress Head exam: Present: atraumatic, normocephalic Eye exam: Present: normal appearance, PERRL ENT exam: Present: normal exam Neck exam: Present: normal inspection. Absent: tenderness, meningismus Respiratory exam: Present: normal lung sounds bilaterally. Absent: respiratory distress, wheezes Cardiovascular Exam: Present: regular rate, normal rhythm GI/Abdominal exam: Present: soft. Absent: distended, tenderness, guarding Extremities exam: Present: joint swelling, other (There is some swelling of the right knee, effusion, no significant warmth appreciated on exam, no bruising, no calf tenderness. Good range of motion at the knee.). Absent: calf tenderness Neurological exam: Present: alert, oriented X3, CN II-XII intact. Absent: motor sensory deficit Psychiatric exam: Present: normal affect, normal mood Skin exam: Present: warm, dry Course Vital Signs 12/08/20 15:19 Temperature 98.1 F Pulse Rate 80 Respiratory 18 Rate Blood Pressure 143/92 Medical Decision Making - Medical Decision Making 50-year-old male presenting with right knee pain. No trauma. No external signs of trauma on exam. Patient has some soft tissue swelling anterior medially and effusion on exam. Low suspicion for septic knee however blood testing is ordered, normal white blood cell count, normal CMP, negative CRP. X-ray performed negative for acute bony abnormality, ultrasound performed for DVT which is negative for DVT but shows a fluid collection in the anterior medial knee consistent with the patient's pain location. I did discuss case with Maryellen edwards for orthopedics who will evaluate the patient in an outpatient setting tomorrow. Patient's given referral. He will rest and elevate the knee. He is given strict return parameters including fever, worsening pain or swelling. Any skin changes associated with his pain complaint. He is prescribed Motrin and will follow-up with orthopedics tomorrow. - Lab Data Result diagrams: 12/08/20 15:46 12/08/20 15:46 Lab Results 12/08/20 12/08/20 12/08/20 Range/Units 15:46 15:46 15:46 WBC 5.9 (3.8-10.6) k/uL RBC 4.83 (4.30-5.90) m/uL Hgb 14.6 (13.0-17.5) gm/dL Hct 43.7 (39.0-53.0) % MCV 90.5 (80.0-100.0) fL MCH 30.2 (25.0-35.0) pg MCHC 33.4 (31.0-37.0) g/dL RDW 13.7 (11.5-15.5) % Plt Count 232 (150-450) k/uL MPV 6.8 Neutrophils % 64 % Lymphocytes % 24 % Monocytes % 6 % Eosinophils % 4 % Basophils % 0 % Neutrophils # 3.8 (1.3-7.7) k/uL Lymphocytes # 1.4 (1.0-4.8) k/uL Monocytes # 0.4 (0-1.0) k/uL Eosinophils # 0.2 (0-0.7) k/uL Basophils # 0.0 (0-0.2) k/uL PT 9.9 (9.0-12.0) sec INR 0.9 (<1.2) APTT 23.7 (22.0-30.0) sec Sodium 138 (137-145) mmol/L Potassium 4.1 (3.5-5.1) mmol/L Chloride 104 (98-107) mmol/L Carbon Dioxide 24 (22-30) mmol/L Anion Gap 10 mmol/L BUN 24 H (9-20) mg/dL Creatinine 0.86 (0.66-1.25) mg/dL Est GFR (CKD-EPI)AfAm >90 (>60 ml/min/1.73 sqM) Est GFR (CKD-EPI)NonAf >90 (>60 ml/min/1.73 sqM) Glucose 134 H (74-99) mg/dL Calcium 9.3 (8.4-10.2) mg/dL Total Bilirubin 0.4 (0.2-1.3) mg/dL AST 24 (17-59) U/L ALT 31 (4-49) U/L Alkaline Phosphatase 131 H (38-126) U/L C-Reactive Protein 0.7 (<1.0) mg/dL Total Protein 6.9 (6.3-8.2) g/dL Albumin 4.3 (3.5-5.0) g/dL Disposition Clinical Impression: Knee pain, right anterior Disposition: HOME SELF-CARE Condition: Good Instructions (If sedation given, give patient instructions): Swollen Knee Joint (ED) Prescriptions: Ibuprofen [Motrin] 600 mg PO Q8HR PRN #24 tab PRN Reason: Pain Is patient prescribed a controlled substance at d/c from ED?: No Referrals: Bryant Barbour DO [Primary Care Provider] - 1-2 days Augusto Harrington MD [STAFF PHYSICIAN] - 1-2 days Maryellen Espinal PAC [PHYSICIAN HEAD RESIDENT] - 1-2 days Time of Disposition: 16:57
[2020-12-08 15:57] LABS: Basophils % (A) 0 %; Eosinophils # (A) 0.2 k/uL (0-0.7); Eosinophils % (A) 4 %; HCT 43.7 % (39.0-53.0); HGB 14.6 gm/dL (13.0-17.5); Lymphocytes # (A) 1.4 k/uL (1.0-4.8); Lymphocytes % (A) 24 %; MCH 30.2 pg (25.0-35.0); MCHC 33.4 g/dL (31.0-37.0); MCV 90.5 fL (80.0-100.0); Mean Platelet Volume 6.8; Monocytes # (A) 0.4 k/uL (0-1.0); Monocytes % (A) 6 %; Neutrophils # (A) 3.8 k/uL (1.3-7.7); Neutrophils % (A) 64 %; Platelet Count 232 k/uL (150-450); RBC 4.83 m/uL (4.30-5.90); RDW 13.7 % (11.5-15.5); WBC 5.9 k/uL (3.8-10.6)
[2020-12-08 16:11] LABS: INR 0.9 (<1.2); Partial Thromboplastin Time 23.7 sec (22.0-30.0); Prothrombin Time 9.9 sec (9.0-12.0)
[2020-12-08 16:14] LABS: ALT 31 U/L (4-49); AST 24 U/L (17-59); African American GFR (CKD) >90 (>60 ml/min/1.73 sqM); Albumin 4.3 g/dL (3.5-5.0); Alkaline Phosphatase 131 U/L (38-126); Anion Gap 10 mmol/L; Blood Urea Nitrogen 24 mg/dL (9-20); C Reactive Protein 0.7 mg/dL (<1.0); Calcium 9.3 mg/dL (8.4-10.2); Carbon Dioxide 24 mmol/L (22-30); Chloride 104 mmol/L (98-107); Glucose 134 mg/dL (74-99); Non-African American GFR(CKD) >90 (>60 ml/min/1.73 sqM); Potassium 4.1 mmol/L (3.5-5.1); Sodium 138 mmol/L (137-145); Total Bilirubin 0.4 mg/dL (0.2-1.3); Total Protein 6.9 g/dL (6.3-8.2)
--- NOTE | 2020-12-08 16:26 | US ---
EXAMINATION TYPE: US venous doppler duplex LE RT DATE OF EXAM: 12/08/2020 4:15 PM COMPARISON: 03/11/2017 CLINICAL HISTORY: pain and swelling. Right knee pain and swelling x 3 days SIDE PERFORMED: Right TECHNIQUE: The lower extremity deep venous system is examined utilizing real time linear array sonog deanna with graded compression, doppler sonography and color-flow sonography. VESSELS IMAGED: Common Femoral Vein Deep Femoral Vein Greater Saphenous Vein * Femoral Vein Popliteal Vein Small Saphenous Vein * Proximal Calf Veins (* superficial vessels) Right Leg: Negative for DVT. At knee pain medially, complex fluid collection is seen = 6.1 x 2.6 x 1 .0cm. IMPRESSION: Grayscale, color doppler, spectral doppler imaging performed of the deep veins of the lo wer extremities. There is normal flow, compressibility, vascular waveforms. No evidence of deep ashlee ous thrombosis on either side.
--- NOTE | 2020-12-08 16:31 | XR ---
EXAMINATION TYPE: XR knee complete RT DATE OF EXAM: 12/08/2020 CLINICAL HISTORY: pain TECHNIQUE: Three views of the right knee are obtained. COMPARISON: 12/08/2016. FINDINGS: There is no acute fracture/dislocation. The tri-compartment joint spaces appear within no rmal limits. The overlying soft tissue appears unremarkable. IMPRESSION: There is no acute fracture or dislocation.ICD 10 NO FRACTURE, INITIAL EVALUATION
[2020-12-08] MEDS ORDERED: KETOROLAC 15 MG/ML 1 ML VIAL IVP STA (16:48)
[2020-12-08 17:25] VITALS: BP 136/74; TEMP 98
== END 2020-12-08 17:25 | disposition home or self-care (01) ==
LOC: EC 15:18
DX: M25.561 Pain in right knee (principal); F17.210 Nicotine dependence, cigarettes, uncomplicated; E78.5 Hyperlipidemia, unspecified; Z85.9 Personal history of malignant neoplasm, unspecified; Z90.49 Acquired absence of other specified parts of digestive tract; Z90.09 Acquired absence of other part of head and neck; Z85.46 Personal history of malignant neoplasm of prostate
CPT/HCPCS: 36415; 80053; 85025; 85610; 85730; 86140; 87040; 73562; 93971; 99284; 96374; J1885

== ENCOUNTER → 2020-12-12 | Outpatient (CLI) | payer OTHER ==
--- NOTE | 2020-12-12 22:54 | MR ---
EXAMINATION TYPE: MR knee RT wo con DATE OF EXAM: 12/12/2020 COMPARISON: Prior right knee MRI December 18, 2016 HISTORY: Right inner knee pain and swelling for 1 week, history of knee surgery. Eval for proximal ti sandra stress fracture. TECHNIQUE: Multiplanar, multisequence imaging of the right knee is performed without IV contrast. FINDINGS: MEDIAL MENISCUS: Persistent oblique full-thickness tear posterior horn medial meniscus extending into central body where more complex full-thickness tear is redemonstrated. Redemonstration of multi sept ated cystic change adjacent to medial aspect medial meniscus. Cystic change increased in size and num doris from prior. LATERAL MENISCUS: Menisci remain intact. CRUCIATE LIGAMENTS: The anterior and posterior cruciate ligaments are intact and unremarkable. COLLATERAL LIGAMENTS: The medial collateral ligament and lateral collateral ligament complex are inta ct. New large thin-walled cyst or cystic lesion deep to the medial collateral ligament along the prox imal tibia coronal image 20 measuring 3.9 x 1.1 cm. EXTENSOR MECHANISM: Visualized quadriceps and patellar tendons are intact. EFFUSION: No significant new suprapatellar joint effusion. POPLITEAL CYST: No popliteal/ruiz cyst. TRICOMPARTMENT SPACES: Persistent [id number] tricompartment joint space loss without significan t spurring. CARTILAGE: Persistent chondromalacia patella with some thinning and fissuring of articular cartilage posterior patellar pole. No significant interval progression. BONE MARROW SIGNAL: No focal abnormal marrow signal is appreciated. OTHER: No additional significant abnormality is appreciated. IMPRESSION: 1. Worsening cystic change medial right knee consistent with pes anserine bursitis. No suspicious new osseous signal to suggest contusion injury or stress fracture. 2. Persistent full thickness tear posterior horn medial meniscus with extension to central body. 3. [id number] tricompartmental degenerative changes greatest patellofemoral compartment without significant interval progression from 2017 MRI.
== END | disposition home or self-care (01) ==
LOC: RADMRIMAIN 19:02
PROVIDERS: ATTEND Orthopaedic Surgery
DX: M23.321 Other meniscus derangements, posterior horn of medial meniscus, right knee (principal); M17.11 Unilateral primary osteoarthritis, right knee

== ENCOUNTER 2021-07-23 19:47 | Emergency (ER) | payer OTHER ==
[2021-07-23 19:56] VITALS: TEMP 98.9
--- NOTE | 2021-07-23 20:16 | XR ---
EXAMINATION TYPE: XR chest 2V DATE OF EXAM: 07/23/2021 COMPARISON: Chest radiograph 05/25/2020 HISTORY: Cough and congestion for one week TECHNIQUE: Frontal and lateral views of the chest are obtained. FINDINGS: There is no focal air space opacity, pleural effusion, or pneumothorax seen. The cardiac silhouette size is within normal limits. The osseous structures are intact. IMPRESSION: No acute cardiopulmonary process.
--- NOTE | 2021-07-23 20:50 | ED ---
General Adult HPI - General Chief complaint: Shortness of Breath Stated complaint: SHARON Time Seen by Provider: 07/23/21 20:30 Source: patient Mode of arrival: ambulatory - History of Present Illness Initial comments: Dictation was produced using [employer] dictation software. please excuse any grammatical, word or spelling errors. Chief Complaint: 51-year-old male presents emergency Department 7 days with what he describes is having a hard time catching his breath. History of Present Illness: Patient's 51-year-old male who denies any comorbidities. He smokes daily. He states that over the last 7 days he has been having shortness of breath. He notices it and it feels like its getting worse over the last 2-3 days. Had a negative at home test for Covid. Patient denies any fevers but he does have mild myalgias and headaches. Denies any obvious exposures to anybody with Covid. No fevers. No abdominal pain. No nausea. Patient states he does also have a mild cough. Nonproductive. Denies any lower extremity symptoms. No history of PEs or DVTs. The ROS documented in this emergency department record has been reviewed and confirmed by me. Those systems with pertinent positive or negative responses have been documented in the HPI. All other systems are other negative and/or noncontributory. PHYSICAL EXAM: General Impression: Alert and oriented x3, not in acute distress HEENT: Normocephalic atraumatic, extra-ocular movements intact, pupils equal and reactive to light bilaterally, mucous membranes moist. Cardiovascular: Heart regular rate and rhythm Chest: Able to complete full sentences, no retractions, no tachypnea, lungs clear to auscultation bilaterally Abdomen: abdomen soft, non-tender, non-distended, no organomegaly Musculoskeletal: Pulses present and equal in all extremities, no peripheral edema Motor: no focal deficits noted Neurological: CN II-XII grossly intact, no focal motor or sensory deficits noted Skin: Intact with no visualized rashes Psych: Normal affect and mood ED course: 51-year-old male presents emergency department for chief complaint of shortness of breath for approximately 7 days. Vital signs upon arrival are within acceptable limits. Patient is a BMI greater than 35. Meets criteria for monoclonal antibody infusion. Patient is agreeable. Patient monitored after monoclonal antibody infusion with no adverse effects. Patient be discharged. - Related Data Home Medications Medication Instructions Recorded Confirmed Acetaminophen Tab [Tylenol] 1,000 mg PO Q4-6H PRN 07/23/21 07/23/21 Ibuprofen [Motrin Ib] 600 mg PO Q4-6H PRN 07/23/21 07/23/21 Allergies Allergy/AdvReac Type Severity Reaction Status Date / Time No Known Allergies Allergy Verified 07/23/21 23:00 Review of Systems ROS Statement: Those systems with pertinent positive or pertinent negative responses have been documented in the HPI. ROS Other: All systems not noted in ROS Statement are negative. Past Medical History Past Medical History: Cancer, Hyperlipidemia, Prostate Disorder Additional Past Medical History / Comment(s): migraines, prostate cancer History of Any Multi-Drug Resistant Organisms: None Reported Past Surgical History: Adenoidectomy, Appendectomy, Cholecystectomy, Hernia Repair, Orthopedic Surgery, Prostate Surgery, Tonsillectomy Additional Past Surgical History / Comment(s): left knee arthroscopy, rt ankle tendon surgery, Past Anesthesia/Blood Transfusion Reactions: No Reported Reaction Past Psychological History: No Psychological Hx Reported Smoking Status: Light tobacco smoker Past Alcohol Use History: Occasional Past Drug Use History: None Reported - Past Family History Mother Family Medical History: Cancer, Pulmonary Embolus Additional Family Medical History / Comment(s): Mother of lung cancer. She was a smoker. Father Family Medical History: Diabetes Mellitus, Myocardial Infarction ([place]), Renal Disease Additional Family Medical History / Comment(s): Kidney stones. Father is 74 yrs old. Course Vital Signs 07/23/21 07/23/21 19:53 19:58 Temperature 98.9 F Pulse Rate 77 Respiratory 21 21 Rate Blood Pressure 158/102 O2 Sat by Pulse 94 L Oximetry Medical Decision Making - Lab Data Lab Results 07/23/21 Range/Units 20:00 Influenza Type A (PCR) Not Detected (Not Detectd) Influenza Type B (PCR) Not Detected (Not Detectd) RSV (PCR) Not Detected (Not Detectd) SARS-CoV-2 (PCR) Detected A (Not Detectd) Disposition Clinical Impression: Coronavirus infection Disposition: HOME SELF-CARE Condition: Good Instructions (If sedation given, give patient instructions): Coronavirus Disease 2019 (COVID-19) Is patient prescribed a controlled substance at d/c from ED?: No Referrals: Bryant Barbour DO [Primary Care Provider] - 1-2 days
[2021-07-23] MEDS ORDERED: SODIUM CHLORIDE 0.9% 50 ML IVPB ONE (22:00)
[2021-07-23] MEDS ORDERED: BAMLANIVIMAB (EUA) 700 MG, ETESEVIMAB (EUA) 1,400 MG in SODIUM CHLORIDE 0.9% 100 ML IVPB ONE (22:15)
[2021-07-24 00:42] VITALS: BP 148/88; PULSE 85; RESP 18
== END 2021-07-24 00:42 | disposition home or self-care (01) ==
LOC: EC 19:47
DX: U07.1 COVID-19 (principal); E78.5 Hyperlipidemia, unspecified; F17.290 Nicotine dependence, other tobacco product, uncomplicated; Z85.46 Personal history of malignant neoplasm of prostate; Z90.49 Acquired absence of other specified parts of digestive tract
CPT/HCPCS: 99285; M0245; 71046; 87636

== ENCOUNTER 2021-12-06 00:38 | Emergency (ER) | payer OTHER ==
[2021-12-06] MEDS ORDERED: SODIUM CHLORIDE 0.9% 1,000 ML IV ONE (01:14)
--- NOTE | 2021-12-06 01:17 | ED ---
SOB HPI - General Chief Complaint: Shortness of Breath Stated Complaint: nausea, SHARON Time Seen by Provider: 12/06/21 01:08 Source: patient, RN notes reviewed Mode of arrival: ambulatory - History of Present Illness Initial Comments: This is a pleasant 51-year-old male who presents emergent back complaining of nausea, shortness of breath, fatigue, and some chills. Patient denies any fever. Patient has had a cough which is productive for scant amount of sputum. Patient states he smokes about one pack of cigarettes per week. Patient states he's been exposed to several paperwork with [address]. Patient is complaining of sporadic upper abdominal and back pains. However denies any vomiting. He denies any anterior chest pain. Mild shortness of breath. No changes in bowel movements or urination. Is no cardiac history. No headache, no fever or chills, no changes in vision or hearing, no sore throat or difficulty with speech, no neck pain, no chest pain or shortness of breath,, no changes in urination or bowel movements, no numbness or tingling, no extremity pain, no skin rashes or lesions. MD Complaint: shortness of breath - Related Data Home Medications Medication Instructions Recorded Confirmed Acetaminophen Tab [Tylenol] 1,000 mg PO Q4-6H PRN 07/23/21 07/23/21 Ibuprofen [Motrin Ib] 600 mg PO Q4-6H PRN 07/23/21 07/23/21 Previous Rx's Medication Instructions Recorded Albuterol Sulfate [Albuterol 2 puff PO Q6H #8.5 gm 12/06/21 Sulfate Hfa] Doxycycline [Vibramycin] 100 mg PO BID 1 Days #20 each 12/06/21 predniSONE 50 mg PO DAILY #5 tab 12/06/21 Allergies Allergy/AdvReac Type Severity Reaction Status Date / Time No Known Allergies Allergy Verified 12/06/21 00:49 Review of Systems ROS Statement: Those systems with pertinent positive or pertinent negative responses have been documented in the HPI. ROS Other: All systems not noted in ROS Statement are negative. Past Medical History Past Medical History: Cancer, Hyperlipidemia, Prostate Disorder Additional Past Medical History / Comment(s): migraines, prostate cancer History of Any Multi-Drug Resistant Organisms: None Reported Past Surgical History: Adenoidectomy, Appendectomy, Cholecystectomy, Hernia Repair, Orthopedic Surgery, Prostate Surgery, Tonsillectomy Additional Past Surgical History / Comment(s): left knee arthroscopy, rt ankle tendon surgery, Past Anesthesia/Blood Transfusion Reactions: No Reported Reaction Past Psychological History: No Psychological Hx Reported Smoking Status: Light tobacco smoker Past Alcohol Use History: Occasional Past Drug Use History: None Reported - Past Family History Mother Family Medical History: Cancer, Pulmonary Embolus Additional Family Medical History / Comment(s): Mother of lung cancer. She was a smoker. Father Family Medical History: Diabetes Mellitus, Myocardial Infarction ([place]), Renal Disease Additional Family Medical History / Comment(s): Kidney stones. Father is 74 yrs old. General Exam - General Exam Comments Initial Comments: Patient does not appear to be overtly ill or toxic. Well hydrated. No mottling. Capillary refill less than 2 seconds. Cranial nerves II through XII grossly intact. General appearance: alert, in no apparent distress Head exam: Present: atraumatic, normocephalic, normal inspection Eye exam: Present: normal appearance, PERRL, EOMI. Absent: scleral icterus, conjunctival injection, periorbital swelling ENT exam: Present: normal exam, normal oropharynx, mucous membranes moist, TM's normal bilaterally, normal external ear exam. Absent: mucous membranes dry Neck exam: Present: normal inspection, full ROM. Absent: tenderness, meningismus, lymphadenopathy Respiratory exam: Present: wheezes (Scant expiratory wheezes noted), other (Patient does have harsh breath sounds bilaterally. However, no rales, or rhonchi. No increased work of breathing). Absent: respiratory distress, rales, rhonchi, stridor, chest wall tenderness, accessory muscle use, decreased breath sounds, prolonged expiratory Cardiovascular Exam: Present: regular rate, normal rhythm, normal heart sounds. Absent: systolic murmur, diastolic murmur, rubs, gallop, clicks GI/Abdominal exam: Present: soft, normal bowel sounds. Absent: distended, tenderness, guarding, rebound, rigid Extremities exam: Present: normal inspection, full ROM, normal capillary refill. Absent: tenderness, pedal edema, joint swelling, calf tenderness Back exam: Present: normal inspection Neurological exam: Present: alert, oriented X3, CN II-XII intact Psychiatric exam: Present: normal affect, normal mood Skin exam: Present: warm, dry, intact, normal color. Absent: rash Course Vital Signs 05/11/22 05/11/22 05/11/22 00:46 02:08 02:12 Temperature 97.9 F Pulse Rate 86 70 Respiratory 18 18 18 Rate Blood Pressure 121/86 113/87 O2 Sat by Pulse 93 L 95 Oximetry - Reevaluation(s) Reevaluation #1: 12/06/21 02:46 Awaiting chest x-ray and troponin. Patient's d-dimer is negative. Remainder of the blood work is essentially unremarkable. COVID-19 testing is negative. Influenza testing negative. Going to order a dose of corticosteroids IV push as well as a DuoNeb treatment. Reevaluation #2: 12/06/21 02:55 Patient hemodynamically stable at discharge. Negative troponin. Normal EKG, x- ray shows possibility of mild infiltrate in the left lower lobe. Possibly viral. Awaiting radiology interpretation Procedures - Smoking Cessation Time Spent Discussing Smoking Cessation w/Patient (Minutes): 5 Patient Acknowledges Need for Cessation: Yes Medical Decision Making - Medical Decision Making Patient had COVID-19 3 or 4 months ago per his report I did review the patient's previous visits. Patient had COVID-19 on 07/23/2021. Patient was counseled on smoking cessation. When to treat the patient with antibiotics, corticosteroids, and albuterol. Patient likely has some level of COPD as he is a cigarette smoker. We'll cover with doxycycline 100 mg twice a day, prednisone for 5 days. Follow-up with his regular physician. History of plan discussed with the patient in detail. All questions answered. Patient's curb 65 score is 0 The case was discussed in detail with ED attending physician. Presentation, findings, treatment plan discussed in detail. Patient was told to return to the ER for any signs or symptoms worsen. Told to return immediately if any other problems arise. All questions answered. Treatment plan discussed. Patient in agreement Every effort has been made to ensure accuracy of this dictation. However, due to the limitations of electronic medical records and dictation devices, errors in charting still occur. Supervising physician Dr. Martin - Lab Data Result diagrams: 12/06/21 02:08 12/06/21 02:08 Lab Results 12/06/21 12/06/21 12/06/21 Range/Units 02:08 02:08 02:08 WBC 5.4 (3.8-10.6) k/uL RBC 5.12 (4.30-5.90) m/uL Hgb 14.7 (13.0-17.5) gm/dL Hct 47.1 (39.0-53.0) % MCV 92.0 (80.0-100.0) fL MCH 28.8 (25.0-35.0) pg MCHC 31.3 (31.0-37.0) g/dL RDW 12.7 (11.5-15.5) % Plt Count 217 (150-450) k/uL MPV 7.1 Neutrophils % 60 % Lymphocytes % 27 % Monocytes % 5 % Eosinophils % 5 % Basophils % 1 % Neutrophils # 3.3 (1.3-7.7) k/uL Lymphocytes # 1.5 (1.0-4.8) k/uL Monocytes # 0.3 (0-1.0) k/uL Eosinophils # 0.2 (0-0.7) k/uL Basophils # 0.1 (0-0.2) k/uL D-Dimer (<0.60) mg/L FEU Sodium (137-145) mmol/L Potassium (3.5-5.1) mmol/L Chloride (98-107) mmol/L Carbon Dioxide (22-30) mmol/L Anion Gap mmol/L BUN (9-20) mg/dL Creatinine (0.66-1.25) mg/dL Est GFR (CKD-EPI)AfAm (>60 ml/min/1.73 sqM) Est GFR (CKD-EPI)NonAf (>60 ml/min/1.73 sqM) Glucose (74-99) mg/dL Calcium (8.4-10.2) mg/dL Magnesium (1.6-2.3) mg/dL Total Bilirubin (0.2-1.3) mg/dL AST (17-59) U/L ALT (4-49) U/L Alkaline Phosphatase (38-126) U/L Troponin I (0.000-0.034) ng/mL NT-Pro-B Natriuret Pep pg/mL Total Protein (6.3-8.2) g/dL Albumin (3.5-5.0) g/dL Coronavirus (PCR) Not Detected (Not Detectd) Influenza Type A RNA Not Detected (Not Detectd) Influenza Type B (PCR) Not Detected (Not Detectd) 12/06/21 12/06/21 12/06/21 Range/Units 02:08 02:08 02:08 WBC (3.8-10.6) k/uL RBC (4.30-5.90) m/uL Hgb (13.0-17.5) gm/dL Hct (39.0-53.0) % MCV (80.0-100.0) fL MCH (25.0-35.0) pg MCHC (31.0-37.0) g/dL RDW (11.5-15.5) % Plt Count (150-450) k/uL MPV Neutrophils % % Lymphocytes % % Monocytes % % Eosinophils % % Basophils % % Neutrophils # (1.3-7.7) k/uL Lymphocytes # (1.0-4.8) k/uL Monocytes # (0-1.0) k/uL Eosinophils # (0-0.7) k/uL Basophils # (0-0.2) k/uL D-Dimer 0.21 (<0.60) mg/L FEU Sodium 138 (137-145) mmol/L Potassium 4.3 (3.5-5.1) mmol/L Chloride 106 (98-107) mmol/L Carbon Dioxide 26 (22-30) mmol/L Anion Gap 6 mmol/L BUN 21 H (9-20) mg/dL Creatinine 0.88 (0.66-1.25) mg/dL Est GFR (CKD-EPI)AfAm >90 (>60 ml/min/1.73 sqM) Est GFR (CKD-EPI)NonAf >90 (>60 ml/min/1.73 sqM) Glucose 129 H (74-99) mg/dL Calcium 8.9 (8.4-10.2) mg/dL Magnesium 1.9 (1.6-2.3) mg/dL Total Bilirubin 0.8 (0.2-1.3) mg/dL AST 25 (17-59) U/L ALT 28 (4-49) U/L Alkaline Phosphatase 76 (38-126) U/L Troponin I <0.012 (0.000-0.034) ng/mL NT-Pro-B Natriuret Pep pg/mL Total Protein 6.9 (6.3-8.2) g/dL Albumin 4.2 (3.5-5.0) g/dL Coronavirus (PCR) (Not Detectd) Influenza Type A RNA (Not Detectd) Influenza Type B (PCR) (Not Detectd) 12/06/21 Range/Units 02:08 WBC (3.8-10.6) k/uL RBC (4.30-5.90) m/uL Hgb (13.0-17.5) gm/dL Hct (39.0-53.0) % MCV (80.0-100.0) fL MCH (25.0-35.0) pg MCHC (31.0-37.0) g/dL RDW (11.5-15.5) % Plt Count (150-450) k/uL MPV Neutrophils % % Lymphocytes % % Monocytes % % Eosinophils % % Basophils % % Neutrophils # (1.3-7.7) k/uL Lymphocytes # (1.0-4.8) k/uL Monocytes # (0-1.0) k/uL Eosinophils # (0-0.7) k/uL Basophils # (0-0.2) k/uL D-Dimer (<0.60) mg/L FEU Sodium (137-145) mmol/L Potassium (3.5-5.1) mmol/L Chloride (98-107) mmol/L Carbon Dioxide (22-30) mmol/L Anion Gap mmol/L BUN (9-20) mg/dL Creatinine (0.66-1.25) mg/dL Est GFR (CKD-EPI)AfAm (>60 ml/min/1.73 sqM) Est GFR (CKD-EPI)NonAf (>60 ml/min/1.73 sqM) Glucose (74-99) mg/dL Calcium (8.4-10.2) mg/dL Magnesium (1.6-2.3) mg/dL Total Bilirubin (0.2-1.3) mg/dL AST (17-59) U/L ALT (4-49) U/L Alkaline Phosphatase (38-126) U/L Troponin I (0.000-0.034) ng/mL NT-Pro-B Natriuret Pep 29 pg/mL Total Protein (6.3-8.2) g/dL Albumin (3.5-5.0) g/dL Coronavirus (PCR) (Not Detectd) Influenza Type A RNA (Not Detectd) Influenza Type B (PCR) (Not Detectd) - EKG Data EKG Comments: EKG done at 140 every morning and read by the ED attending physician reveals sinus rhythm with a rate of 75, borderline left axis deviation. Normal intervals. No evidence of acute ST or T-wave changes. - Radiology Data Radiology results: image reviewed (Possible infiltrate left lower lobe. Loss of heart border noted. Difficult to ascertain whether viral or bacterial. Awaiting radiology interpretation) Disposition Clinical Impression: COPD exacerbation, Community acquired pneumonia, Cigarette smoker Disposition: HOME SELF-CARE Condition: Stable Instructions (If sedation given, give patient instructions): COPD (Chronic Obstructive Pulmonary Disease) (ED), How to Stop Smoking (ED) Prescriptions: Albuterol Sulfate [Albuterol Sulfate Hfa] 2 puff PO Q6H #8.5 gm predniSONE 50 mg PO DAILY #5 tab Doxycycline [Vibramycin] 100 mg PO BID 1 Days #20 each Is patient prescribed a controlled substance at d/c from ED?: No Referrals: Bryant Barbour DO [Primary Care Provider] - 12/08/21 Time of Disposition: 02:58
[2021-12-06 02:22] LABS: Basophils # (A) 0.1 k/uL (0-0.2); Basophils % (A) 1 %; Eosinophils # (A) 0.2 k/uL (0-0.7); Eosinophils % (A) 5 %; HCT 47.1 % (39.0-53.0); HGB 14.7 gm/dL (13.0-17.5); Lymphocytes # (A) 1.5 k/uL (1.0-4.8); Lymphocytes % (A) 27 %; MCH 28.8 pg (25.0-35.0); MCHC 31.3 g/dL (31.0-37.0); Mean Platelet Volume 7.1; Monocytes # (A) 0.3 k/uL (0-1.0); Monocytes % (A) 5 %; Neutrophils # (A) 3.3 k/uL (1.3-7.7); Neutrophils % (A) 60 %; Platelet Count 217 k/uL (150-450); RBC 5.12 m/uL (4.30-5.90); RDW 12.7 % (11.5-15.5); WBC 5.4 k/uL (3.8-10.6)
[2021-12-06 02:33] LABS: ALT 28 U/L (4-49); AST 25 U/L (17-59); African American GFR (CKD) >90 (>60 ml/min/1.73 sqM); Albumin 4.2 g/dL (3.5-5.0); Alkaline Phosphatase 76 U/L (38-126); Anion Gap 6 mmol/L; Blood Urea Nitrogen 21 mg/dL (9-20); Calcium 8.9 mg/dL (8.4-10.2); Carbon Dioxide 26 mmol/L (22-30); Chloride 106 mmol/L (98-107); Glucose 129 mg/dL (74-99); Magnesium 1.9 mg/dL (1.6-2.3); Non-African American GFR(CKD) >90 (>60 ml/min/1.73 sqM); Potassium 4.3 mmol/L (3.5-5.1); Sodium 138 mmol/L (137-145); Total Bilirubin 0.8 mg/dL (0.2-1.3); Total Protein 6.9 g/dL (6.3-8.2)
[2021-12-06] MEDS ORDERED: IPRATROPIUM-ALBUTEROL 3 ML NEB INHALATION STA (02:45)
[2021-12-06] MEDS ORDERED: methylPREDNISolone SOD SUCCI 125 MG/2 ML VIAL IV STA (02:45)
[2021-12-06] MEDS ORDERED: DOXYCYCLINE 100 MG CAP PO STA (02:53)
--- NOTE | 2021-12-06 02:55 | XR ---
EXAMINATION TYPE: XR chest 2V DATE OF EXAM: 12/06/2021 COMPARISON: NONE HISTORY: 07/23/2021 TECHNIQUE: 2 views FINDINGS: Heart and mediastinum are normal. Lungs are clear. Diaphragm is normal. Bony thorax is inta ct. IMPRESSION: Normal chest. No change.
[2021-12-06 03:43] VITALS: BP 122/89; PULSE 63; RESP 22; TEMP 97.6
== END 2021-12-06 03:37 | disposition home or self-care (01) ==
LOC: EC 00:38
DX: J44.1 Chronic obstructive pulmonary disease with (acute) exacerbation (principal); J18.9 Pneumonia, unspecified organism; F17.210 Nicotine dependence, cigarettes, uncomplicated; Z20.822 Contact with and (suspected) exposure to COVID-19
CPT/HCPCS: 36415; 93005; 85379; 83880; 80053; 83735; 84484; 85025; 87502; 87635; 71046; 99285; 96374; J2930

== ENCOUNTER 2022-02-07 03:15 | Emergency (ER) | payer OTHER ==
[2022-02-07 03:20] VITALS: BP 126/81; PULSE 99; RESP 18; TEMP 98.4
[2022-02-07] MEDS ORDERED: LIDOCAINE 1% INJ 10MG/ML (5 ML VIAL-PF) SQ STA (05:47)
[2022-02-07] MEDS ORDERED: HYDROcodone/APAP 5-325MG 1 EACH TAB PO STA (05:47)
[2022-02-07] MEDS ORDERED: SULFAMETHOX-TMP 800-160MG 1 EACH TAB PO STA (05:47)
--- NOTE | 2022-02-07 05:54 | ED ---
Skin/Abscess/FB HPI - General Chief complaint: Skin/Abscess/Foreign Body Stated complaint: Back abscess/lump Time Seen by Provider: 02/07/22 03:53 Source: patient Mode of arrival: ambulatory - History of Present Illness Initial comments: This patient is a 51-year-old man who presents to be evaluated for "got a lump on my back." He states that has been there between 2 and 4 weeks or so. Over the past few days she has noted that it is becoming progressively enlarged and more tender. No fever or chills or other systemic symptoms. MD complaint: abscess/boil Onset/Timin -: month(s) Tetanus Up to Date: yes Location: back Severity: moderate Quality: dull Consistency: constant Improves with: none Worsens with: palpation Context: none Associated symptoms: denies other symptoms - Related Data Home Medications Medication Instructions Recorded Confirmed Acetaminophen Tab [Tylenol] 1,000 mg PO Q4-6H PRN 07/23/21 07/23/21 Ibuprofen [Motrin Ib] 600 mg PO Q4-6H PRN 07/23/21 07/23/21 Previous Rx's Medication Instructions Recorded Albuterol Sulfate [Albuterol 2 puff PO Q6H #8.5 gm 12/06/21 Sulfate Hfa] Doxycycline [Vibramycin] 100 mg PO BID 1 Days #20 each 12/06/21 predniSONE 50 mg PO DAILY #5 tab 12/06/21 Allergies Allergy/AdvReac Type Severity Reaction Status Date / Time No Known Allergies Allergy Verified 02/07/22 03:19 Review of Systems ROS Statement: Those systems with pertinent positive or pertinent negative responses have been documented in the HPI. ROS Other: All systems not noted in ROS Statement are negative. Constitutional: Denies: fever, chills Respiratory: Denies: cough, dyspnea Cardiovascular: Denies: chest pain Gastrointestinal: Reports: abdominal pain. Denies: nausea, vomiting Musculoskeletal: Reports: as per HPI, back pain Skin: Reports: as per HPI, other Past Medical History Past Medical History: Cancer, COPD, Hyperlipidemia, Prostate Disorder Additional Past Medical History / Comment(s): migraines, prostate cancer, COPD History of Any Multi-Drug Resistant Organisms: None Reported Past Surgical History: Adenoidectomy, Appendectomy, Cholecystectomy, Hernia Repair, Orthopedic Surgery, Prostate Surgery, Tonsillectomy Additional Past Surgical History / Comment(s): left knee arthroscopy, rt ankle tendon surgery, Past Anesthesia/Blood Transfusion Reactions: No Reported Reaction Past Psychological History: No Psychological Hx Reported Smoking Status: Light tobacco smoker Past Alcohol Use History: Occasional Past Drug Use History: None Reported - Past Family History Mother Family Medical History: Cancer, Pulmonary Embolus Additional Family Medical History / Comment(s): Mother of lung cancer. She was a smoker. Father Family Medical History: Diabetes Mellitus, Myocardial Infarction ([place]), Renal Disease Additional Family Medical History / Comment(s): Kidney stones. Father is 74 yrs old. General Exam General appearance: alert, in no apparent distress Head exam: Present: atraumatic, normocephalic Eye exam: Present: normal appearance. Absent: scleral icterus, conjunctival injection Neck exam: Present: normal inspection Respiratory exam: Present: normal lung sounds bilaterally. Absent: respiratory distress, wheezes, rales, rhonchi, stridor Cardiovascular Exam: Present: regular rate, normal rhythm, normal heart sounds. Absent: systolic murmur, diastolic murmur, rubs, gallop GI/Abdominal exam: Present: soft. Absent: distended Back exam: Present: other (There is approximately 6 cm diameter area of erythema with some central fluctuance.). Absent: CVA tenderness (R), CVA tenderness (L), vertebral tenderness Course Vital Signs 02/07/22 03:18 Temperature 98.4 F Pulse Rate 99 Respiratory 18 Rate Blood Pressure 126/81 O2 Sat by Pulse 95 Oximetry Disposition Clinical Impression: Sebaceous cyst Disposition: HOME SELF-CARE Condition: Good Instructions (If sedation given, give patient instructions): Abscess Incision and Drainage (DC) Is patient prescribed a controlled substance at d/c from ED?: No Referrals: Bryant Barbour DO [Primary Care Provider] - 1-2 days
== END 2022-02-07 07:24 | disposition home or self-care (01) ==
LOC: EC 03:15
DX: L72.3 Sebaceous cyst (principal); J44.9 Chronic obstructive pulmonary disease, unspecified; E78.5 Hyperlipidemia, unspecified; F17.210 Nicotine dependence, cigarettes, uncomplicated; Z79.899 Other long term (current) drug therapy
CPT/HCPCS: 99282; J2001

== ENCOUNTER 2022-02-18 07:18 | Emergency (ER) | payer OTHER ==
[2022-02-18 07:23] VITALS: BP 124/89; PULSE 72; RESP 18; TEMP 97.8
[2022-02-18] MEDS ORDERED: LIDOCAINE 1% INJ 10MG/ML (5 ML VIAL-PF) SQ ONE (07:38)
[2022-02-18] MEDS ORDERED: ACET/COD 300 MG/30 MG STARTER PACK 6 TAB BTL PO STA (08:11)
--- NOTE | 2022-02-18 08:12 | ED ---
Skin/Abscess/FB HPI - General Chief complaint: Skin/Abscess/Foreign Body Stated complaint: abscess-revisit Time Seen by Provider: 02/18/22 07:32 Source: patient, RN notes reviewed Mode of arrival: ambulatory Limitations: no limitations - History of Present Illness Initial comments: 51-year-old male presents emergency Department chief complaints of abscess on his back. Patient states he was here approximately 10 days ago for persistent has back. Patient states he had an I&D of this cyst states that it started fostering getting increasing redness. Patient states it is painful. Patient denies any fevers or chills. He's had small amount of drainage. Patient denies been on the current antibiotics denies current pain meds. Patient denies complaints. - Related Data Home Medications Medication Instructions Recorded Confirmed Acetaminophen Tab [Tylenol] 1,000 mg PO Q4-6H PRN 07/23/21 07/23/21 Ibuprofen [Motrin Ib] 600 mg PO Q4-6H PRN 07/23/21 07/23/21 Previous Rx's Medication Instructions Recorded Albuterol Sulfate [Albuterol 2 puff PO Q6H #8.5 gm 12/06/21 Sulfate Hfa] Doxycycline [Vibramycin] 100 mg PO BID 1 Days #20 each 12/06/21 predniSONE 50 mg PO DAILY #5 tab 12/06/21 Cephalexin [Keflex] 500 mg PO Q6HR #40 cap 02/18/22 Sulfamethox-Tmp 800-160Mg [Bactrim 1 each PO Q12HR #20 tab 02/18/22 Ds] Allergies Allergy/AdvReac Type Severity Reaction Status Date / Time No Known Allergies Allergy Verified 02/18/22 07:23 Review of Systems ROS Statement: Those systems with pertinent positive or pertinent negative responses have been documented in the HPI. ROS Other: All systems not noted in ROS Statement are negative. Past Medical History Past Medical History: Cancer, COPD, Hyperlipidemia, Prostate Disorder Additional Past Medical History / Comment(s): migraines, prostate cancer, COPD History of Any Multi-Drug Resistant Organisms: None Reported Past Surgical History: Adenoidectomy, Appendectomy, Cholecystectomy, Hernia Repair, Orthopedic Surgery, Prostate Surgery, Tonsillectomy Additional Past Surgical History / Comment(s): left knee arthroscopy, rt ankle tendon surgery, Past Anesthesia/Blood Transfusion Reactions: No Reported Reaction Past Psychological History: No Psychological Hx Reported Smoking Status: Light tobacco smoker Past Alcohol Use History: Occasional Past Drug Use History: None Reported - Past Family History Mother Family Medical History: Cancer, Pulmonary Embolus Additional Family Medical History / Comment(s): Mother of lung cancer. She was a smoker. Father Family Medical History: Diabetes Mellitus, Myocardial Infarction ([place]), Renal Disease Additional Family Medical History / Comment(s): Kidney stones. Father is 74 yrs old. General Exam Limitations: no limitations General appearance: alert, in no apparent distress Head exam: Present: atraumatic, normocephalic, normal inspection Eye exam: Present: normal appearance, PERRL, EOMI. Absent: scleral icterus, conjunctival injection, periorbital swelling Respiratory exam: Present: normal lung sounds bilaterally. Absent: respiratory distress, wheezes, rales, rhonchi, stridor Cardiovascular Exam: Present: regular rate, normal rhythm, normal heart sounds. Absent: systolic murmur, diastolic murmur, rubs, gallop, clicks Back exam: Present: other (Erythematous cystic area 4 cm right upper back) Course Vital Signs 02/18/22 07:21 Temperature 97.8 F Pulse Rate 72 Respiratory 18 Rate Blood Pressure 124/89 O2 Sat by Pulse 96 Oximetry Procedures - Incision & Drainage Consent Obtained: verbal consent, written consent Site: back Anesthetic Used: lidocaine 1%, without epi Amount (mLs): 8 I&D Cleaning Method: Alcohol Wipe Scalpel Used: #11 Irrigation Performed?: Yes I&D Drainage Obtained: Pus, Blood Culture Obtained?: Yes Patient Tolerated Procedure: well, no complications Medical Decision Making - Medical Decision Making Has infected sebaceous cyst was opened, drained, patient we discharged on antibiotics given erythematous skin changes patient will apply warm compresses patient will be given surgeon follow-up if symptoms do not improve. Disposition Clinical Impression: Infected sebaceous cyst Disposition: HOME SELF-CARE Condition: Stable Instructions (If sedation given, give patient instructions): Abscess Incision and Drainage (DC) Additional Instructions: Please return to the Emergency Department if symptoms worsen or any other concerns. Prescriptions: Sulfamethox-Tmp 800-160Mg [Bactrim Ds] 1 each PO Q12HR #20 tab Cephalexin [Keflex] 500 mg PO Q6HR #40 cap Is patient prescribed a controlled substance at d/c from ED?: No Referrals: Bryant Barbour DO [Primary Care Provider] - 1-2 days Fer De Los Santos MD [STAFF PHYSICIAN] - 1-2 days Time of Disposition: 08:12
== END 2022-02-18 08:25 | disposition home or self-care (01) ==
LOC: EC 07:18
DX: L72.3 Sebaceous cyst (principal); F17.209 Nicotine dependence, unspecified, with unspecified nicotine-induced disorders; Z82.49 Family history of ischemic heart disease and other diseases of the circulatory system
CPT/HCPCS: 87070; 87205; 99282; J2001

== ENCOUNTER 2022-07-25 08:24 | Emergency (ER) | payer OTHER ==
[2022-07-25 08:39] VITALS: RESP 16; TEMP 99
--- NOTE | 2022-07-25 08:54 | XR ---
EXAMINATION TYPE: XR chest 2V DATE OF EXAM: 07/25/2022 COMPARISON: 12/06/2021 INDICATION: Cough short of breath TECHNIQUE: Frontal and lateral views of the chest are obtained. FINDINGS: The heart size is normal. The pulmonary vasculature is normal. The lungs are clear. IMPRESSION: 1. No acute pulmonary process.
--- NOTE | 2022-07-25 11:29 | ED ---
URI HPI - General Chief Complaint: Upper Respiratory Infection Stated Complaint: SOB Time Seen by Provider: 07/25/22 11:19 Source: patient, RN notes reviewed Mode of arrival: ambulatory Limitations: no limitations - History of Present Illness Initial Comments: This is a 52-year-old male who presents to the emergency department for coughing and congestion. Symptoms have been present for the last 2-3 days. The coughing is the most bothersome symptom. The coughing is causing him to be nauseous. Also reports nausea from all of the nasal drainage. He does have COPD. Denies any difficulty breathing or chest pain. He has not measured any fevers. Denies any sick contacts. Denies any fevers, chills, sore throat, dyspnea, chest pain, palpitations, abdominal pain, vomiting, diarrhea, back pain, or headaches. MD Complaint: cough, nasal congestion Onset/Timin -: days(s) - Related Data Home Medications Medication Instructions Recorded Confirmed Acetaminophen Tab [Tylenol] 1,000 mg PO Q4-6H PRN 07/23/21 07/23/21 Ibuprofen [Motrin Ib] 600 mg PO Q4-6H PRN 07/23/21 07/23/21 Previous Rx's Medication Instructions Recorded Albuterol Sulfate [Albuterol 2 puff PO Q6H #8.5 gm 12/06/21 Sulfate Hfa] Doxycycline [Vibramycin] 100 mg PO BID 1 Days #20 each 12/06/21 predniSONE 50 mg PO DAILY #5 tab 12/06/21 Cephalexin [Keflex] 500 mg PO Q6HR #40 cap 02/18/22 Sulfamethox-Tmp 800-160Mg [Bactrim 1 each PO Q12HR #20 tab 02/18/22 Ds] Ondansetron Odt [Zofran Odt] 4 mg PO Q8HR PRN #15 tab 07/25/22 Promethazine/Dextromethorphan 5 ml PO Q4-6H PRN #473 ml 07/25/22 [Promethazine-Dm Syrup] predniSONE 50 mg PO DAILY 5 Days #5 tab 07/25/22 Allergies Allergy/AdvReac Type Severity Reaction Status Date / Time No Known Allergies Allergy Verified 02/18/22 07:23 Review of Systems ROS Statement: Those systems with pertinent positive or pertinent negative responses have been documented in the HPI. ROS Other: All systems not noted in ROS Statement are negative. Past Medical History Past Medical History: Cancer, COPD, Hyperlipidemia, Prostate Disorder Additional Past Medical History / Comment(s): migraines, prostate cancer, COPD History of Any Multi-Drug Resistant Organisms: None Reported Past Surgical History: Adenoidectomy, Appendectomy, Cholecystectomy, Hernia Repair, Orthopedic Surgery, Prostate Surgery, Tonsillectomy Additional Past Surgical History / Comment(s): left knee arthroscopy, rt ankle tendon surgery, Past Anesthesia/Blood Transfusion Reactions: No Reported Reaction Past Psychological History: No Psychological Hx Reported Smoking Status: Former smoker, Light tobacco smoker Past Alcohol Use History: Occasional Past Drug Use History: None Reported - Past Family History Mother Family Medical History: Cancer, Pulmonary Embolus Additional Family Medical History / Comment(s): Mother of lung cancer. She was a smoker. Father Family Medical History: Diabetes Mellitus, Myocardial Infarction ([place]), Renal Disease Additional Family Medical History / Comment(s): Kidney stones. Father is 74 yrs old. General Exam Limitations: no limitations General appearance: alert, in no apparent distress Head exam: Present: atraumatic, normocephalic, normal inspection Respiratory exam: Present: normal lung sounds bilaterally. Absent: respiratory distress, wheezes, rales, rhonchi, stridor Cardiovascular Exam: Present: regular rate, normal rhythm, normal heart sounds. Absent: systolic murmur, diastolic murmur, rubs, gallop, clicks Neurological exam: Present: alert, oriented X3, CN II-XII intact Psychiatric exam: Present: normal affect, normal mood Skin exam: Present: warm, dry, intact, normal color. Absent: rash Course Vital Signs 07/25/22 07/25/22 08:36 11:38 Temperature 99 F Pulse Rate 93 86 Respiratory 16 16 Rate Blood Pressure 123/79 160/90 O2 Sat by Pulse 95 98 Oximetry Medical Decision Making - Medical Decision Making This is a 52-year-old male who presents to the emergency department for coughing and congestion. Was pt. sent in by a medical professional or institution? @ -No Did you speak to anyone other than the patient for history? @ -No Did you review nursing and triage notes? @ -Agree, accurate with regards to the patient's symptoms. Were old charts reviewed? @ -No Differential Diagnosis? @ --Influenza, Covid, allergic rhinitis, GERD, pneumonia, bronchitis, COPD, viral pharyngitis, streptococcal pharyngitis, this is not meant to be an all inclulsive list. What testing was considered but not performed? (CT, X-rays, U/S, labs)? Why? @ -None What meds were considered but not given? Why? @ -None Did you discuss the management of the patient with other professionals? @ -No Did you reconcile home meds? @ -No Was smoking cessation discussed for >3mins.? @ -No Was critical care preformed (if so, how long)? @ -No Were there social determinants of health that impacted care today? How? (Homelessness, low income, unemployed, alcoholism, drug addiction, transportation, low edu. Level, literacy, decrease access to med. care, nursing home, rehab)? @ -No Was there de-escalation of care discussed even if they declined? (Discuss DNR or withdrawal of care, Hospice)? @ -No What co-morbidities impacted this encounter? (DM, HTN, Smoking, COPD, CAD, Cancer, CVA, Hep., AIDS, mental health diagnosis, sleep apnea, morbid obesity)? @ -COPD Was patient admitted / discharged? @ -Discharged. Patient tested positive for influenza A. Tamiflu discussed with the patient who opts to avoid this at this time. Prescription for prednisone, promethazine DM cough syrup, and Zofran provided with dosing instructions review ed. He is advised to get plenty of rest and remain well-hydrated. Advised ibuprofen and Tylenol as needed for any fevers. Drug Therapy requiring intensive monitoring for toxicity (Heparin, Nitro, Insulin, Cardizem)? @ -None Were any procedures done? @ -None Diagnosis/symptom? @ -Influenza A Acute, or Chronic, or Acute on Chronic? @ -Acute Uncomplicated (without systemic symptoms) or Complicated (systemic symptoms)? @ -Complicated because he is also experiencing nausea. Side effects of treatment? @ -Adverse reaction to prescribed medications. Exacerbation, Progression, or Severe Exacerbation] @ -Not applicable Poses a threat to life or bodily function? @ -The coughing and congestion may impact function depending on the severity. Return precautions reviewed in depth, the patient is instructed to return to the emergency department with any new, worsening, or concerning symptoms. Patient verbalized understanding. This case was discussed in detail with the attending ED physician. Presentation, findings, and treatment plan discussed in detail as well. - Lab Data Lab Results 07/25/22 Range/Units 08:40 Influenza Type A (PCR) Detected A (Not Detectd) Influenza Type B (PCR) Not Detected (Not Detectd) RSV (PCR) Not Detected (Not Detectd) SARS-CoV-2 (PCR) Not Detected (Not Detectd) Disposition Clinical Impression: Influenza A Disposition: HOME SELF-CARE Instructions (If sedation given, give patient instructions): Influenza (ED) Additional Instructions: Return to the emergency department with any new, worsening, or concerning symptoms. Take the prednisone daily for 5 days. The cough medicine can be used every 4-6 hours as needed, it may make you drowsy and you should take it at night until you know how it affects you. Use the Zofran up to every 8 hours as needed for nausea and vomiting. Make sure that you are continuing to use your albuterol inhaler as well. Follow up with your primary care provider in 1-2 days. Prescriptions: predniSONE 50 mg PO DAILY 5 Days #5 tab Promethazine/Dextromethorphan [Promethazine-Dm Syrup] 5 ml PO Q4-6H PRN #473 ml PRN Reason: Cough Ondansetron Odt [Zofran Odt] 4 mg PO Q8HR PRN #15 tab PRN Reason: Nausea And Vomiting Is patient prescribed a controlled substance at d/c from ED?: No Referrals: Bryant Barbour DO [Primary Care Provider] - 1-2 days
[2022-07-25 11:39] VITALS: BP 160/90; PULSE 86
== END 2022-07-25 11:40 | disposition home or self-care (01) ==
LOC: EC 08:24
DX: J10.1 Influenza due to other identified influenza virus with other respiratory manifestations (principal); J44.9 Chronic obstructive pulmonary disease, unspecified; F17.200 Nicotine dependence, unspecified, uncomplicated; Z79.899 Other long term (current) drug therapy; Z20.822 Contact with and (suspected) exposure to COVID-19
CPT/HCPCS: 71046; 87636; 99284

== ENCOUNTER 2022-08-09 00:50 | Emergency (ER) | payer OTHER ==
[2022-08-09] MEDS ORDERED: KETOROLAC 15 MG/ML 1 ML VIAL IM STA (01:08)
[2022-08-09] MEDS ORDERED: DEXAMETHASONE SOD PHOSPHATE 10 MG/ML 1 ML VIAL IM STA (01:08)
--- NOTE | 2022-08-09 01:35 | XR ---
EXAMINATION TYPE: XR wrist complete RT DATE OF EXAM: 08/09/2022 COMPARISON: NONE HISTORY: Pain TECHNIQUE: 3 views FINDINGS: Carpal bones are intact. Metacarpals are intact. I see no fracture nor dislocation. The rad iocarpal joint is intact. IMPRESSION: Negative right wrist exam. No fracture seen.
--- NOTE | 2022-08-09 01:57 | ED ---
Upper Extremity HPI - General Chief Complaint: Extremity Injury, Upper Stated Complaint: IHS,Wrist Injury Time Seen by Provider: 08/09/22 01:05 Source: patient Mode of arrival: ambulatory Limitations: no limitations - History of Present Illness Initial Comments: Patient is a 52-year-old male presenting with chief complaint of right wrist pain. Patient states that he injured the wrist at work when using a machine had to crank in an upward fashion to lift a 100 pound object. He felt a pop in the wrist and has had pain shooting up the arm as well as some numbness and tingling. He has full range of motion, there is pain with extension. No joint redness or swelling. - Related Data Home Medications Medication Instructions Recorded Confirmed Acetaminophen Tab [Tylenol] 1,000 mg PO Q4-6H PRN 07/23/21 07/23/21 Ibuprofen [Motrin Ib] 600 mg PO Q4-6H PRN 07/23/21 07/23/21 Previous Rx's Medication Instructions Recorded Albuterol Sulfate [Albuterol 2 puff PO Q6H #8.5 gm 12/06/21 Sulfate Hfa] Doxycycline [Vibramycin] 100 mg PO BID 1 Days #20 each 12/06/21 predniSONE 50 mg PO DAILY #5 tab 12/06/21 Cephalexin [Keflex] 500 mg PO Q6HR #40 cap 02/18/22 Sulfamethox-Tmp 800-160Mg [Bactrim 1 each PO Q12HR #20 tab 02/18/22 Ds] Ondansetron Odt [Zofran Odt] 4 mg PO Q8HR PRN #15 tab 07/25/22 Promethazine/Dextromethorphan 5 ml PO Q4-6H PRN #473 ml 07/25/22 [Promethazine-Dm Syrup] predniSONE 50 mg PO DAILY 5 Days #5 tab 07/25/22 Allergies Allergy/AdvReac Type Severity Reaction Status Date / Time No Known Allergies Allergy Verified 08/09/22 01:03 Review of Systems ROS Statement: Those systems with pertinent positive or pertinent negative responses have been documented in the HPI. ROS Other: All systems not noted in ROS Statement are negative. Past Medical History Past Medical History: Cancer, COPD, Hyperlipidemia, Prostate Disorder Additional Past Medical History / Comment(s): migraines, prostate cancer, COPD History of Any Multi-Drug Resistant Organisms: None Reported Past Surgical History: Adenoidectomy, Appendectomy, Cholecystectomy, Hernia Repair, Orthopedic Surgery, Prostate Surgery, Tonsillectomy Additional Past Surgical History / Comment(s): left knee arthroscopy, rt ankle tendon surgery, Past Anesthesia/Blood Transfusion Reactions: No Reported Reaction Past Psychological History: No Psychological Hx Reported Smoking Status: Former smoker, Light tobacco smoker Past Alcohol Use History: Occasional Past Drug Use History: None Reported - Past Family History Mother Family Medical History: Cancer, Pulmonary Embolus Additional Family Medical History / Comment(s): Mother of lung cancer. She was a smoker. Father Family Medical History: Diabetes Mellitus, Myocardial Infarction ([place]), Renal Disease Additional Family Medical History / Comment(s): Kidney stones. Father is 74 yrs old. General Exam Limitations: no limitations General appearance: alert, in no apparent distress Head exam: Present: atraumatic, normocephalic, normal inspection Eye exam: Present: normal appearance Neck exam: Present: normal inspection Right Hand Wrist exam: Present: normal inspection, full ROM, tenderness. Absent: swelling Vascular: Absent: vascular compromise Neurological exam: Present: alert, oriented X3, CN II-XII intact Psychiatric exam: Present: normal affect, normal mood Skin exam: Present: warm, dry, intact, normal color. Absent: rash Course Vital Signs 08/09/22 08/09/22 01:03 02:03 Temperature 98.2 F 97.9 F Pulse Rate 82 72 Respiratory 18 16 Rate Blood Pressure 112/78 118/76 O2 Sat by Pulse 96 98 Oximetry Medical Decision Making - Medical Decision Making Was pt. sent in by a medical professional or institution ([facility] Kim, TREAD CUTTER, urgent care, hospital, or care home...) When possible be specific @ -[No] Did you speak to anyone other than the patient for history (EMS, parent, family, police, friend...)? What history was obtained from this source @ -[No] Did you review nursing and triage notes (agree or disagree)? Why? @ -[I reviewed and agree with nursing and triage notes] Were old charts reviewed (outside hosp., previous admission, EMS record, old EKG, old radiological studies, urgent care reports/EKG's, care home records)? Report findings @ -[No old charts were reviewed] Differential Diagnosis (chest pain, altered mental status, abdominal pain women, abdominal pain men, vaginal bleeding, weakness, fever, dyspnea, syncope, headache, dizziness, GI bleed, back pain, seizure, CVA, palpatations, mental health)? @ Differential includes fracture, dislocation, sprain, strain, nerve injury EKG interpreted by me (3pts min.). @ -[As above] X-rays interpreted by me (1pt min.). @ -X-ray shows no acute fracture or dislocation CT interpreted by me (1pt min.). @ -[None done] U/S interpreted by me (1pt. min.). @ -[None done] What testing was considered but not performed or refused? (CT, X-rays, U/S, labs)? Why? @ -[None] What meds were considered but not given or refused? Why? @ -[None] Did you discuss the management of the patient with other professionals (professionals i.e. , PA, TREAD CUTTER, lab, RT, psych nurse, social service agency director, vessel scrapper, teacher, parking regulation enforcement officer, child welfare caseworker)? Give summary @ -[No] Was smoking cessation discussed for >3mins.? @ -[No] Was critical care preformed (if so, how long)? @ -[No] Were there social determinants of health that impacted care today? How? (Homelessness, low income, unemployed, alcoholism, drug addiction, transportation, low edu. Level, literacy, decrease access to med. care, senior care, rehab)? @ -[No] Was there de-escalation of care discussed even if they declined (Discuss DNR or withdrawal of care, Hospice)? DNR status @ -[No] What co-morbidities impacted this encounter? (DM, HTN, Smoking, COPD, CAD, Cancer, CVA, ARF, Chemo, Hep., AIDS, mental health diagnosis, sleep apnea, morbid obesity)? @ -[None] Was patient admitted / discharged? Hospital course, mention meds given and route, prescriptions, significant lab abnormalities, going to OR and other pertinent info. @ -Patient is a 52-year-old male presenting with chief complaint of right wrist pain. He injured the wrist while at work. On physical examination there is no snuffbox tenderness. Patient has full range of motion but admits to pain with extension. He has full sensation. X-ray shows no acute fracture or dislocation. I educated the patient on these findings and on supportive treatment with wrist sprain. Rest, ice, compression, elevation, Motrin, and Tylenol are recommended. Avoid lifting over 5 pounds until healed or until c leared by PCP or industrial health. Follow-up with PCP. Report back to ER with any new or worsening symptoms. Discussed return parameters and answered all questions. Patient conveyed verbal understanding and agreed to the plan. I discussed this case in detail with my attending Dr. Martin Undiagnosed new problem with uncertain prognosis? @ -[No] Drug Therapy requiring intensive monitoring for toxicity (Heparin, Nitro, Insulin, Cardizem)? @ -[No] Were any procedures done? @ -[No] Diagnosis/symptom? @ -Wrist sprain Acute, or Chronic, or Acute on Chronic? @ -Acute Uncomplicated (without systemic symptoms) or Complicated (systemic symptoms)? @ -Uncomplicated Side effects of treatment? @ -[No] Exacerbation, Progression, or Severe Exacerbation? @ -[No] Poses a threat to life or bodily function? How? (Chest pain, [place], [place], pneumonia, PE, COPD, DKA, ARF, appy, cholecystitis, CVA, Diverticulitis, Homicidal, Suicidal, threat to staff... and all critical care pts) @ -[No] Disposition Clinical Impression: Wrist sprain Disposition: HOME SELF-CARE Condition: Good Instructions (If sedation given, give patient instructions): Wrist Injury (ED), Wrist Sprain (ED) Additional Instructions: Follow-up with PCP. Report back to ER with any new or worsening symptoms. Take Motrin and Tylenol as needed for pain control. Rest, ice, elevate the wrist. Avoid lifting over 5 pounds with the right wrist until healed or until cleared by PCP or industrial health. Is patient prescribed a controlled substance at d/c from ED?: No Referrals: Bryant Barbour DO [Primary Care Provider] - 1-2 days Time of Disposition: 01:57
[2022-08-09 02:05] VITALS: BP 118/76; PULSE 72; RESP 16; TEMP 97.9
== END 2022-08-09 02:05 | disposition home or self-care (01) ==
LOC: EC 00:50
DX: S63.501A Unspecified sprain of right wrist, initial encounter (principal); J44.9 Chronic obstructive pulmonary disease, unspecified; Z87.891 Personal history of nicotine dependence; X58.XXXA Exposure to other specified factors, initial encounter
CPT/HCPCS: 73110; 99283; 96372 ×2; J1100; J1885

== ENCOUNTER 2022-08-13 02:42 | Emergency (ER) | payer SELFPAY ==
[2022-08-13 02:52] VITALS: TEMP 98.3
[2022-08-13] MEDS ORDERED: SODIUM CHLORIDE 0.9% 1,000 ML IV STA ×2 (03:04)
[2022-08-13] MEDS ORDERED: PANTOPRAZOLE 40 MG/10 ML VIAL IVP STA (03:04)
[2022-08-13] MEDS ORDERED: MORPHINE SULFATE 4 MG/ML SYRINGE IVP STA (03:04)
[2022-08-13] MEDS ORDERED: ONDANSETRON 4 MG/2 ML VIAL IVP STA (03:04)
--- NOTE | 2022-08-13 03:17 | ED ---
Abdominal Pain HPI - General Chief Complaint: Abdominal Pain Stated Complaint: ABD PAIN Time Seen by Provider: 08/13/22 02:53 Source: patient, RN notes reviewed, old records reviewed Mode of arrival: ambulatory Limitations: no limitations - History of Present Illness Initial Comments: This is a 52-year-old male to the emergency room for evaluation. Patient presents today for evaluation of abdominal pain. His abdominal pain and bloating throughout the day. Nausea no vomiting he did have multiple episodes of diarrhea. No travel history or sick contacts no family members with similar complaints. Patient has a positive history of appendectomy or cholecystectomy. Patient has no fevers. MD Complaint: abdominal pain -: hour(s) Location: diffuse, periumbilical Radiation: epigastric, suprapubic Migration to: epigastric, suprapubic Severity: moderate Severity scale (1-10): 7 Quality: fullness Consistency: constant Improves With: nothing Worsens With: nothing Context: other (0) Associated Symptoms: nausea Treatments Prior to Arrival: other (0) - Related Data Home Medications Medication Instructions Recorded Confirmed Acetaminophen Tab [Tylenol] 1,000 mg PO Q4-6H PRN 07/23/21 07/23/21 Ibuprofen [Motrin Ib] 600 mg PO Q4-6H PRN 07/23/21 07/23/21 Previous Rx's Medication Instructions Recorded Albuterol Sulfate [Albuterol 2 puff PO Q6H #8.5 gm 12/06/21 Sulfate Hfa] Doxycycline [Vibramycin] 100 mg PO BID 1 Days #20 each 12/06/21 predniSONE 50 mg PO DAILY #5 tab 12/06/21 Cephalexin [Keflex] 500 mg PO Q6HR #40 cap 02/18/22 Sulfamethox-Tmp 800-160Mg [Bactrim 1 each PO Q12HR #20 tab 02/18/22 Ds] Ondansetron Odt [Zofran Odt] 4 mg PO Q8HR PRN #15 tab 07/25/22 Promethazine/Dextromethorphan 5 ml PO Q4-6H PRN #473 ml 07/25/22 [Promethazine-Dm Syrup] predniSONE 50 mg PO DAILY 5 Days #5 tab 07/25/22 Allergies Allergy/AdvReac Type Severity Reaction Status Date / Time No Known Allergies Allergy Verified 08/09/22 01:03 Review of Systems ROS Statement: Those systems with pertinent positive or pertinent negative responses have been documented in the HPI. ROS Other: All systems not noted in ROS Statement are negative. Past Medical History Past Medical History: Cancer, COPD, Hyperlipidemia, Prostate Disorder Additional Past Medical History / Comment(s): migraines, prostate cancer, COPD History of Any Multi-Drug Resistant Organisms: None Reported Past Surgical History: Adenoidectomy, Appendectomy, Cholecystectomy, Hernia Repair, Orthopedic Surgery, Prostate Surgery, Tonsillectomy Additional Past Surgical History / Comment(s): left knee arthroscopy, rt ankle tendon surgery, Past Anesthesia/Blood Transfusion Reactions: No Reported Reaction Past Psychological History: No Psychological Hx Reported Smoking Status: Former smoker, Light tobacco smoker Past Alcohol Use History: Occasional Past Drug Use History: None Reported - Past Family History Mother Family Medical History: Cancer, Pulmonary Embolus Additional Family Medical History / Comment(s): Mother of lung cancer. She was a smoker. Father Family Medical History: Diabetes Mellitus, Myocardial Infarction ([place]), Renal Disease Additional Family Medical History / Comment(s): Kidney stones. Father is 74 yrs old. General Exam Limitations: no limitations General appearance: alert, in no apparent distress Head exam: Present: atraumatic, normocephalic, normal inspection Eye exam: Present: normal appearance, PERRL, EOMI. Absent: scleral icterus, conjunctival injection, periorbital swelling ENT exam: Present: normal exam, mucous membranes moist Neck exam: Present: normal inspection. Absent: tenderness, meningismus, lymphadenopathy Respiratory exam: Present: normal lung sounds bilaterally. Absent: respiratory distress, wheezes, rales, rhonchi, stridor Cardiovascular Exam: Present: regular rate, normal rhythm, normal heart sounds. Absent: systolic murmur, diastolic murmur, rubs, gallop, clicks GI/Abdominal exam: Present: soft, normal bowel sounds. Absent: distended, ten derness, guarding, rebound, rigid Extremities exam: Present: normal inspection, full ROM, normal capillary refill. Absent: tenderness, pedal edema, joint swelling, calf tenderness Back exam: Present: normal inspection Neurological exam: Present: alert, oriented X3, CN II-XII intact Psychiatric exam: Present: normal affect, normal mood Skin exam: Present: warm, dry, intact, normal color. Absent: rash Course Vital Signs 08/13/22 02:49 Temperature 98.3 F Pulse Rate 109 H Respiratory 18 Rate Blood Pressure 109/68 O2 Sat by Pulse 97 Oximetry - Reevaluation(s) Reevaluation #1: 08/13/22 03:22 Medical record is reviewed Reevaluation #2: 08/13/22 04:36 Patient symptoms are improved Reevaluation #3: 08/13/22 04:37 Patient informed of results and questions have been answered Reevaluation #4: 08/13/22 03:22 Differential Abdominal Pain Men: Appendicitis, cholecystitis, diverticulosis, ischemic bowel, pancreatitis, hepatitis, UTI, gastroenteritis, AAA, incarcerated hernia, bowel obstruction, constipation, inflammatory bowel, hepatitis, peptic ulcer disease, splenic infarction, perforated viscus, testicular torsion, this is not meant to be an all-inclusive list Reevaluation #5: 08/13/22 03:23 Was pt. sent in by a medical professional or institution? @ -no Did you speak to anyone other than the patient for history? @ -no Did you review nursing and triage notes? @ -agree Were old charts reviewed? @ -prior ED visits Differential Diagnosis? @ -prior EKG interpreted by me (3pts min.)? @ -[none] X-rays interpreted by me (1pt min.)? @ -[none] CT interpreted by me (1pt min.)? @ -[none] U/S interpreted by me (1pt. min.)? @ -[none] What testing was considered but not performed? (CT, X-rays, U/S, labs)? Why? @ -no What meds were considered but not given? Why? @ -[none] Did you discuss the management of the patient with other professionals? @ -no Did you reconcile home meds? @ -[none] Was smoking cessation discussed for >3mins.? @ -[none] Was critical care preformed (if so, how long)? @ -[none] Were there social determinants of health that impacted care today? How? (Homelessness, low income, unemployed, alcoholism, drug addiction, transportation, low edu. Level, literacy, decrease access to med. care, nursing home, rehab)? @ -no Was there de-escalation of care discussed even if they declined? (Discuss DNR or withdrawal of care, Hospice)? @ -no What co-morbidities impacted this encounter? (DM, HTN, Smoking, COPD, CAD, Cancer, CVA, Hep., AIDS, mental health diagnosis, sleep apnea, morbid obesity)? @ -no Was patient admitted / discharged? @ -dc Undiagnosed new problem with uncertain prognosis? @ -[none] Drug Therapy requiring intensive monitoring for toxicity (Heparin, Nitro, Insulin, Cardizem)? @ -[none] Were any procedures done? @ -[none] Diagnosis/symptom? @ -[default] Acute, or Chronic, or Acute on Chronic? @ -[default] Uncomplicated (without systemic symptoms) or Complicated (systemic symptoms)? @ -[default] Side effects of treatment? @ -[none] Exacerbation, Progression, or Severe Exacerbation] @ -[no] Poses a threat to life or bodily function? @ -[no] Medical Decision Making - Medical Decision Making 52 male to the emergency department for evaluation of abdominal pain. Positive nausea no vomiting positive diarrhea. Patient has colitis gastroenteritis will be given symptomatic therapy can be discharged home - Lab Data Result diagrams: 08/13/22 03:17 08/13/22 03:17 Lab Results 08/13/22 08/13/22 08/13/22 Range/Units 03:17 03:17 03:17 WBC 8.3 (3.8-10.6) k/uL RBC 5.10 (4.30-5.90) m/uL Hgb 15.2 (13.0-17.5) gm/dL Hct 44.4 (39.0-53.0) % MCV 86.9 (80.0-100.0) fL MCH 29.7 (25.0-35.0) pg MCHC 34.2 (31.0-37.0) g/dL RDW 12.9 (11.5-15.5) % Plt Count 245 (150-450) k/uL MPV 7.1 Neutrophils % 84 % Lymphocytes % 9 % Monocytes % 5 % Eosinophils % 1 % Basophils % 0 % Neutrophils # 7.0 (1.3-7.7) k/uL Lymphocytes # 0.7 L (1.0-4.8) k/uL Monocytes # 0.4 (0-1.0) k/uL Eosinophils # 0.1 (0-0.7) k/uL Basophils # 0.0 (0-0.2) k/uL PT 10.0 (9.0-12.0) sec INR 0.9 (<1.2) APTT 23.7 (22.0-30.0) sec Sodium 133 L (137-145) mmol/L Potassium 4.1 (3.5-5.1) mmol/L Chloride 104 (98-107) mmol/L Carbon Dioxide 25 (22-30) mmol/L Anion Gap 4 mmol/L BUN 18 (9-20) mg/dL Creatinine 0.74 (0.66-1.25) mg/dL Est GFR (CKD-EPI)AfAm >90 (>60 ml/min/1.73 sqM) Est GFR (CKD-EPI)NonAf >90 (>60 ml/min/1.73 sqM) Glucose 194 H (74-99) mg/dL Plasma Lactic Acid Fernando (0.7-2.0) mmol/L Calcium 9.0 (8.4-10.2) mg/dL Total Bilirubin 0.7 (0.2-1.3) mg/dL AST 19 (17-59) U/L ALT 27 (4-49) U/L Alkaline Phosphatase 87 (38-126) U/L Total Protein 6.6 (6.3-8.2) g/dL Albumin 3.9 (3.5-5.0) g/dL Amylase 52 (30-110) U/L Lipase 138 (23-300) U/L 08/13/22 Range/Units 03:17 WBC (3.8-10.6) k/uL RBC (4.30-5.90) m/uL Hgb (13.0-17.5) gm/dL Hct (39.0-53.0) % MCV (80.0-100.0) fL MCH (25.0-35.0) pg MCHC (31.0-37.0) g/dL RDW (11.5-15.5) % Plt Count (150-450) k/uL MPV Neutrophils % % Lymphocytes % % Monocytes % % Eosinophils % % Basophils % % Neutrophils # (1.3-7.7) k/uL Lymphocytes # (1.0-4.8) k/uL Monocytes # (0-1.0) k/uL Eosinophils # (0-0.7) k/uL Basophils # (0-0.2) k/uL PT (9.0-12.0) sec INR (<1.2) APTT (22.0-30.0) sec Sodium (137-145) mmol/L Potassium (3.5-5.1) mmol/L Chloride (98-107) mmol/L Carbon Dioxide (22-30) mmol/L Anion Gap mmol/L BUN (9-20) mg/dL Creatinine (0.66-1.25) mg/dL Est GFR (CKD-EPI)AfAm (>60 ml/min/1.73 sqM) Est GFR (CKD-EPI)NonAf (>60 ml/min/1.73 sqM) Glucose (74-99) mg/dL Plasma Lactic Acid Fernando 1.1 (0.7-2.0) mmol/L Calcium (8.4-10.2) mg/dL Total Bilirubin (0.2-1.3) mg/dL AST (17-59) U/L ALT (4-49) U/L Alkaline Phosphatase (38-126) U/L Total Protein (6.3-8.2) g/dL Albumin (3.5-5.0) g/dL Amylase (30-110) U/L Lipase (23-300) U/L - Radiology Data Radiology results: report reviewed (CT abdomen and pelvis is negative for acute disease, colitis), image reviewed Disposition Clinical Impression: Abdominal pain, Gastroenteritis Disposition: HOME SELF-CARE Condition: Good Instructions (If sedation given, give patient instructions): Abdominal Pain (ED), Gastroenteritis (ED) Is patient prescribed a controlled substance at d/c from ED?: No Referrals: Bryant Barbour DO [Primary Care Provider] - 1-2 days Time of Disposition: 04:35
[2022-08-13 03:59] LABS: Basophils % (A) 0 %; Eosinophils # (A) 0.1 k/uL (0-0.7); Eosinophils % (A) 1 %; HCT 44.4 % (39.0-53.0); HGB 15.2 gm/dL (13.0-17.5); Lymphocytes # (A) 0.7 k/uL (1.0-4.8); Lymphocytes % (A) 9 %; MCH 29.7 pg (25.0-35.0); MCHC 34.2 g/dL (31.0-37.0); MCV 86.9 fL (80.0-100.0); Mean Platelet Volume 7.1; Monocytes # (A) 0.4 k/uL (0-1.0); Monocytes % (A) 5 %; Neutrophils % (A) 84 %; Platelet Count 245 k/uL (150-450); RDW 12.9 % (11.5-15.5); WBC 8.3 k/uL (3.8-10.6)
[2022-08-13 04:00] LABS: ALT 27 U/L (4-49); AST 19 U/L (17-59); African American GFR (CKD) >90 (>60 ml/min/1.73 sqM); Albumin 3.9 g/dL (3.5-5.0); Alkaline Phosphatase 87 U/L (38-126); Amylase 52 U/L (30-110); Anion Gap 4 mmol/L; Blood Urea Nitrogen 18 mg/dL (9-20); Carbon Dioxide 25 mmol/L (22-30); Chloride 104 mmol/L (98-107); Glucose 194 mg/dL (74-99); Lipase 138 U/L (23-300); Non-African American GFR(CKD) >90 (>60 ml/min/1.73 sqM); Potassium 4.1 mmol/L (3.5-5.1); Sodium 133 mmol/L (137-145); Total Bilirubin 0.7 mg/dL (0.2-1.3); Total Protein 6.6 g/dL (6.3-8.2)
--- NOTE | 2022-08-13 04:09 | CT ---
EXAMINATION TYPE: CT abdomen pelvis w con DATE OF EXAM: 08/13/2022 COMPARISON: None HISTORY: abd pain CT DLP: 2147.7 mGycm Automated exposure control for dose reduction was used. CONTRAST: Performed with IV Contrast, patient injected with 100 mL of Isovue 300. Images obtained from the diaphragm to the floor the pelvis with the IV contrast. There is some mild atelectasis right posterior lateral lung base. No pleural effusion. Heart size is normal. No pericardial effusion. There is minimal fatty infiltration of the liver. Spleen and pancrea s appear normal. The stomach is intact. There are clips from cholecystectomy. The bile ducts are not dilated. There is no adrenal mass. Kidneys show satisfactory contrast opacification. No hydronephrosis. There is 4 cm rounded solid cortical mass anterior right kidney. There is a 4 cm cortical cyst lower pole l eft kidney. Delayed images show normal renal excretion. No retroperitoneal adenopathy. The bladder di stends smoothly. No inguinal hernia. No free fluid in the pelvis. No pelvic mass. There are a few sig moid diverticula. There is some mild wall thickening of the right colon and transverse colon. Appendi x is medial and appears normal. No mesenteric edema. No ascites or free air. No sign of a bowel obstruction. The lumbar vertebrae hav e normal alignment. No compression fracture. Bony pelvis is intact. The hip joints are intact. 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 Follow-up is recommend ed. Diffuse wall thickening of the right colon and transverse colon is suggestive of some nonspecific col itis.
[2022-08-13 04:15] LABS: INR 0.9 (<1.2); Partial Thromboplastin Time 23.7 sec (22.0-30.0)
[2022-08-13] MEDS ORDERED: IBUPROFEN 600 MG STARTER PACK 4 TAB BTL PO STA (04:35)
[2022-08-13] MEDS ORDERED: ONDANSETRON 4 MG ODT STARTER PACK 2 TAB BTL PO STA (04:35)
[2022-08-13] MEDS ORDERED: traMADol 50 MG STARTER PACK 3 TAB BTL PO STA (04:35)
[2022-08-13] MEDS ORDERED: DIPHENOX-ATROP STARTER PACK 8 TAB BTL PO STA (04:35)
[2022-08-13 04:54] VITALS: BP 114/73; PULSE 83; RESP 16
== END 2022-08-13 04:53 | disposition home or self-care (01) ==
LOC: EC 02:42
DX: K52.9 Noninfective gastroenteritis and colitis, unspecified (principal); Z90.89 Acquired absence of other organs; Z90.49 Acquired absence of other specified parts of digestive tract; Z87.891 Personal history of nicotine dependence
CPT/HCPCS: 99284; 96374; 96375; 96361; 36415; 80053; 82150; 83605; 83690; 85025; 85610; 85730; 74177; J2270; J2405; S0119; C9113; Q9967

== ENCOUNTER 2022-12-30 20:18 | Emergency (ER) | payer OTHER ==
[2022-12-30 20:26] VITALS: TEMP 98
[2022-12-30] MEDS ORDERED: IPRATROPIUM-ALBUTEROL 3 ML NEB INHALATION STA (21:31)
[2022-12-30] MEDS ORDERED: ALBUTEROL NEBULIZED 2.5 MG/3 ML INHALATION STA (21:31)
--- NOTE | 2022-12-30 21:44 | ED ---
URI HPI - General Chief Complaint: Upper Respiratory Infection Stated Complaint: SHARON Time Seen by Provider: 12/30/22 21:09 Source: patient Mode of arrival: ambulatory Limitations: no limitations - History of Present Illness MD Complaint: cough, rhinorrhea, nasal congestion, sinus pain Onset/Timin -: days(s) Severity: moderate Consistency: constant Improves With: nothing Worsens With: nothing Associated Symptoms: rhinorrhea, nasal congestion, cough, shortness of breath Treatments Prior to Arrival: none - Related Data Previous Rx's Medication Instructions Recorded Albuterol Inhaler [Ventolin Hfa 2 puff INHALATION Q4HR PRN #8 gm 12/30/22 Inhaler] predniSONE 60 mg PO DAILY #30 tab 12/30/22 Allergies Allergy/AdvReac Type Severity Reaction Status Date / Time No Known Allergies Allergy Verified 12/30/22 22:12 Review of Systems ROS Statement: Those systems with pertinent positive or pertinent negative responses have been documented in the HPI. ROS Other: All systems not noted in ROS Statement are negative. ENT: Reports: congestion Respiratory: Reports: cough, wheezes Cardiovascular: Denies: chest pain, palpitations, edema Gastrointestinal: Denies: abdominal pain, nausea, vomiting Genitourinary: Denies: dysuria, hematuria Musculoskeletal: Denies: back pain Skin: Denies: rash Neurological: Denies: headache, weakness, numbness Past Medical History Past Medical History: Cancer, COPD, GERD/Reflux, Hyperlipidemia, Prostate Disorder, Renal Disease, Sleep Apnea/CPAP/BIPAP Additional Past Medical History / Comment(s): Migraines. Hx prostate cancer 2015. No CPAP use. Tumor on right kidney. History of Any Multi-Drug Resistant Organisms: None Reported Past Surgical History: Adenoidectomy, Appendectomy, Cholecystectomy, Hernia Repair, Orthopedic Surgery, Prostate Surgery, Tonsillectomy Additional Past Surgical History / Comment(s): Left knee arthroscopy, right ankle tendon surgery, wisdom teeth extracted. right kidney Past Anesthesia/Blood Transfusion Reactions: No Reported Reaction Past Psychological History: No Psychological Hx Reported Smoking Status: Current some day smoker, Light tobacco smoker Past Alcohol Use History: Occasional Past Drug Use History: None Reported - Past Family History Mother Family Medical History: Cancer, Pulmonary Embolus Additional Family Medical History / Comment(s): Mother of lung cancer. She was a smoker. Father Family Medical History: Diabetes Mellitus, Myocardial Infarction ([place]), Renal Disease Additional Family Medical History / Comment(s): Kidney stones. General Exam Limitations: no limitations General appearance: alert, in no apparent distress Head exam: Present: atraumatic, normocephalic Eye exam: Present: normal appearance. Absent: scleral icterus, conjunctival injection Neck exam: Present: normal inspection, full ROM Respiratory exam: Present: wheezes. Absent: respiratory distress, rales, rhonchi, stridor, chest wall tenderness, accessory muscle use, decreased breath sounds Cardiovascular Exam: Present: regular rate, normal rhythm, normal heart sounds. Absent: systolic murmur, diastolic murmur, rubs, gallop GI/Abdominal exam: Present: soft. Absent: distended, tenderness, guarding, rebound, rigid, mass Extremities exam: Present: normal inspection, normal capillary refill. Absent: pedal edema, calf tenderness Back exam: Present: normal inspection. Absent: CVA tenderness (R), CVA tenderness (L) Neurological exam: Present: alert Skin exam: Present: warm, dry, intact, normal color. Absent: rash Course Vital Signs 12/30/22 12/30/22 12/30/22 20:23 21:47 22:03 Temperature 98.0 F Pulse Rate 91 88 78 Respiratory 18 Rate Blood Pressure 124/83 O2 Sat by Pulse 94 L Oximetry 12/30/22 22:54 Temperature Pulse Rate 80 Respiratory 16 Rate Blood Pressure 107/80 O2 Sat by Pulse 93 L Oximetry Medical Decision Making - Medical Decision Making the patient had 2 view chest x-ray which I interpreted to show no infiltrate, no congestive heart failure and no pneumothorax. This patient is 52-year-old man here to have evaluation of increased shortness of breath, cough, and upper respiratory symptoms. Patient does appear to have COPD exacerbation likely brought on by viral upper respiratory infection. Patient feeling better following treatment, will have close follow-up. We discussed return parameters. Was pt. sent in by a medical professional or institution (, PA, BRANCH ASSOCIATE, urgent care, hospital, or fpc...) When possible be specific @ -[No] Did you speak to anyone other than the patient for history (EMS, parent, family, police, friend...)? What history was obtained from this source @ -[No] Did you review nursing and triage notes (agree or disagree)? Why? @ -[I reviewed and agree with nursing and triage notes] Were old charts reviewed (outside hosp., previous admission, EMS record, old EKG, old radiological studies, urgent care reports/EKG's, fpc records)? Report findings @ -[No old charts were reviewed] Differential Diagnosis (chest pain, altered mental status, abdominal pain women, abdominal pain men, vaginal bleeding, weakness, fever, dyspnea, syncope, headache, dizziness, GI bleed, back pain, seizure, CVA, palpatations, mental health, musculoskeletal)? @ -[Differential Dyspnea: Coronary syndrome, arrhythmia, tamponade, asthma, COPD, pulmonary embolism, pneumonia, pneumothorax, pulmonary effusion, anaphylaxis, diabetic ketoacidosis, flailed chest, pulmonary contusion, diaphragmatic rupture, anemia, neuromuscular, this is not meant to be an all-inclusive list. EKG interpreted by me (3pts min.). @ -[As above] X-rays interpreted by me (1pt min.). @ -[As above CT interpreted by me (1pt min.). @ -[None done] U/S interpreted by me (1pt. min.). @ -[None done] What testing was considered but not performed or refused? (CT, X-rays, U/S, labs)? Why? @ -[None] What meds were considered but not given or refused? Why? @ -[None] Did you discuss the management of the patient with other professionals (professionals i.e. , PA, BRANCH ASSOCIATE, lab, RT, psych nurse, social work case manager, bread supervisor, teacher, media liaison officer, casey saw operator)? Give summary @ -[No] Was smoking cessation discussed for >3mins.? @ -[No] Was critical care preformed (if so, how long)? @ -[No] Were there social determinants of health that impacted care today? How? (Homelessness, low income, unemployed, alcoholism, drug addiction, transportation, low edu. Level, literacy, decrease access to med. care, group home, rehab)? @ -[No] Was there de-escalation of care discussed even if they declined (Discuss DNR or withdrawal of care, Hospice)? DNR status @ -[No] What co-morbidities impacted this encounter? (DM, HTN, Smoking, COPD, CAD, Cancer, CVA, ARF, Chemo, Hep., AIDS, mental health diagnosis, sleep apnea, morbid obesity)? @ -[COPD Was patient admitted / discharged? Hospital course, mention meds given and route, prescriptions, significant lab abnormalities, going to OR and other pertinent info. @ -[Discharged with close follow-up Undiagnosed new problem with uncertain prognosis? @ -[No] Drug Therapy requiring intensive monitoring for toxicity (Heparin, Nitro, Insulin, Cardizem)? @ -[No] Were any procedures done? @ -[No] Diagnosis/symptom? @ -[Acute exacerbation of COPD Acute, or Chronic, or Acute on Chronic? @ -[default] Uncomplicated (without systemic symptoms) or Complicated (systemic symptoms)? @ -[Uncomplicated Side effects of treatment? @ -[No] Exacerbation, Progression, or Severe Exacerbation? @ -[No] Poses a threat to life or bodily function? How? (Chest pain, [place], [place], pneumonia, PE, COPD, DKA, ARF, appy, cholecystitis, CVA, Diverticulitis, Homicidal, Suicidal, threat to staff... and all critical care pts) @ -[No] - Lab Data Lab Results 12/30/22 Range/Units 21:30 Influenza Type A (PCR) Not Detected (Not Detectd) Influenza Type B (PCR) Not Detected (Not Detectd) RSV (PCR) Not Detected (Not Detectd) SARS-CoV-2 (PCR) Not Detected (Not Detectd) - EKG Data -: EKG Interpreted by Me EKG shows normal: sinus rhythm, axis (Borderline left axis deviation), intervals (Normal), QRS complexes (Normal), ST-T waves (Normal) Rate: normal (Rate 86 bpm) Disposition Clinical Impression: COPD exacerbation Disposition: HOME SELF-CARE Condition: Good Instructions (If sedation given, give patient instructions): Acute Bronchitis (ED) Prescriptions: predniSONE 60 mg PO DAILY #30 tab Albuterol Inhaler [Ventolin Hfa Inhaler] 2 puff INHALATION Q4HR PRN #8 gm PRN Reason: Wheezing Is patient prescribed a controlled substance at d/c from ED?: No Referrals: Bryant Barbour DO [Primary Care Provider] - 1-2 days
--- NOTE | 2022-12-30 22:02 | XR ---
EXAMINATION TYPE: XR chest 2V DATE OF EXAM: 12/30/2022 9:43 PM COMPARISON: Chest x-ray 09/23/2022 TECHNIQUE: XR chest 2V . CLINICAL INDICATION:Male, 52 years old with history of cough; FINDINGS: Lungs/Pleura: There is no evidence of pleural effusion, focal consolidation, or pneumothorax. Pulmonary vascularity: Unremarkable. Heart/mediastinum: Cardiomediastinal silhouette is unremarkable. Musculoskeletal: Multiple level degenerative disc disease changes seen throughout the spine. IMPRESSION: No acute cardiopulmonary disease/process.
[2022-12-30] MEDS ORDERED: predniSONE 20 MG TAB PO STA (22:27)
[2022-12-30 23:07] VITALS: BP 107/80; PULSE 80; RESP 16
== END 2022-12-30 22:54 | disposition home or self-care (01) ==
LOC: EC 20:18
DX: J44.1 Chronic obstructive pulmonary disease with (acute) exacerbation (principal); F17.200 Nicotine dependence, unspecified, uncomplicated; Z20.822 Contact with and (suspected) exposure to COVID-19
CPT/HCPCS: 94640; 93005; 87636; 71046; 99285; J7512

== ENCOUNTER 2023-02-12 01:40 | Emergency (ER) | payer OTHER ==
[2023-02-12 01:46] VITALS: BP 146/96; PULSE 77; RESP 19; TEMP 98.6
[2023-02-12] MEDS ORDERED: KETOROLAC 15 MG/ML 1 ML VIAL IM STA (01:57)
[2023-02-12] MEDS ORDERED: LIDOCAINE 5% PATCH TOPICAL SCH (01:57)
[2023-02-12] MEDS ORDERED: DEXAMETHASONE SOD PHOSPHATE 10 MG/ML 1 ML VIAL IM STA (01:57)
--- NOTE | 2023-02-12 02:19 | ED ---
Back Pain HPI - General Chief Complaint: Back Pain/Injury Stated Complaint: Back Injury, [facility] Time Seen by Provider: 02/12/23 01:55 Source: patient - History of Present Illness Initial Comments: 52-year-old male presenting with chief complaint of back pain. Patient states that he was work and went to get up out of a chair when he twisted too far causing lower back pain. Pain is primarily on the left side. No loss of bowel or bladder control or saddle paresthesia. No dysuria, hematuria, fever, chills. No numbness, tingling, weakness. - Related Data Previous Rx's Medication Instructions Recorded Albuterol Inhaler [Ventolin Hfa 2 puff INHALATION Q4HR PRN #8 gm 12/30/22 Inhaler] predniSONE 60 mg PO DAILY #30 tab 12/30/22 Cyclobenzaprine [Flexeril] 10 mg PO TID PRN #15 tab 02/12/23 Allergies Allergy/AdvReac Type Severity Reaction Status Date / Time No Known Allergies Allergy Verified 02/12/23 01:45 Review of Systems ROS Statement: Those systems with pertinent positive or pertinent negative responses have been documented in the HPI. ROS Other: All systems not noted in ROS Statement are negative. Past Medical History Past Medical History: Cancer, COPD, GERD/Reflux, Hyperlipidemia, Prostate Disorder, Renal Disease, Sleep Apnea/CPAP/BIPAP Additional Past Medical History / Comment(s): Migraines. Hx prostate cancer 2015. No CPAP use. Tumor on right kidney. History of Any Multi-Drug Resistant Organisms: None Reported Past Surgical History: Adenoidectomy, Appendectomy, Cholecystectomy, Hernia Re pair, Orthopedic Surgery, Prostate Surgery, Tonsillectomy Additional Past Surgical History / Comment(s): Left knee arthroscopy, right ankle tendon surgery, wisdom teeth extracted. right kidney Past Anesthesia/Blood Transfusion Reactions: No Reported Reaction Past Psychological History: No Psychological Hx Reported Smoking Status: Current some day smoker, Light tobacco smoker Past Alcohol Use History: Occasional Past Drug Use History: None Reported - Past Family History Mother Family Medical History: Cancer, Pulmonary Embolus Additional Family Medical History / Comment(s): Mother of lung cancer. She was a smoker. Father Family Medical History: Diabetes Mellitus, Myocardial Infarction ([place]), Renal Disease Additional Family Medical History / Comment(s): Kidney stones. General Exam Limitations: no limitations General appearance: alert, in no apparent distress Head exam: Present: atraumatic, normocephalic, normal inspection Eye exam: Present: normal appearance Neck exam: Present: normal inspection, full ROM Respiratory exam: Present: normal lung sounds bilaterally. Absent: respiratory distress, wheezes, rales, rhonchi, stridor Cardiovascular Exam: Present: regular rate, normal rhythm, normal heart sounds. Absent: systolic murmur, diastolic murmur, rubs, gallop, clicks Extremities exam: Present: normal inspection, full ROM Back exam: Present: normal inspection Neurological exam: Present: alert, oriented X3, CN II-XII intact Psychiatric exam: Present: normal affect, normal mood Skin exam: Present: warm, dry, intact, normal color. Absent: rash Course Vital Signs 02/12/23 01:43 Temperature 98.6 F Pulse Rate 77 Respiratory 19 Rate Blood Pressure 146/96 O2 Sat by Pulse 97 Oximetry Medical Decision Making - Medical Decision Making Was pt. sent in by a medical professional or institution (, PA, TRAUMA COORDINATOR, urgent care, hospital, or [facility]...) When possible be specific @ -No Did you speak to anyone other than the patient for history (EMS, parent, family, police, friend...)? What history was obtained from this source @ -No Did you review nursing and triage notes (agree or disagree)? Why? @ -I reviewed and agree with nursing and triage notes Were old charts reviewed (outside hosp., previous admission, EMS record, old EKG, old radiological studies, urgent care reports/EKG's, [facility] records)? Report findings @ -No old charts were reviewed Differential Diagnosis (chest pain, altered mental status, abdominal pain women, abdominal pain men, vaginal bleeding, weakness, fever, dyspnea, syncope, headache, dizziness, GI bleed, back pain, seizure, CVA, palpatations, mental health, musculoskeletal)? @ - [facility] Differential Back Pain: Strain, zoster, cauda equina syndrome, epidural abscess, vertebral osteomyelitis, discitis, fracture, subluxation, disc herniation, DJD, spinal stenosis, dissection, AAA, pancreatitis, peptic ulcer disease, pyelonephritis, kidney stone this is not meant to be an all-inclusive list. EKG interpreted by me (3pts min.). @ -As above X-rays interpreted by me (1pt min.). @ -Lumbar spine x-ray shows no acute process CT interpreted by me (1pt min.). @ -None done U/S interpreted by me (1pt. min.). @ -None done What testing was considered but not performed or refused? (CT, X-rays, U/S, labs)? Why? @ -None What meds were considered but not given or refused? Why? @ -None Did you discuss the management of the patient with other professionals (professionals i.e. , PA, TRAUMA COORDINATOR, lab, RT, psych nurse, psychotherapist social worker, medical records supervisor, teacher, student liaison officer, case coordinator)? Give summary @ -No Was smoking cessation discussed for >3mins.? @ -No Was critical care preformed (if so, how long)? @ -No Were there social determinants of health that impacted care today? How? (Homelessness, low income, unemployed, alcoholism, drug addiction, transportation, low edu. Level, literacy, decrease access to med. care, correction, rehab)? @ -No Was there de-escalation of care discussed even if they declined (Discuss DNR or withdrawal of care, Hospice)? DNR status @ -No What co-morbidities impacted this encounter? (DM, HTN, Smoking, COPD, CAD, Cancer, CVA, ARF, Chemo, Hep., AIDS, mental health diagnosis, sleep apnea, morbid obesity)? @ -None Was patient admitted / discharged? Hospital course, mention meds given and route, prescriptions, significant lab abnormalities, going to OR and other pertinent info. @ -52-year-old male presenting with chief complaint of back injury at work this evening. No red flag symptoms. X-ray shows no acute process. He is given Toradol, Decadron, Norflex, and lidocaine patch. He is educated on supportive management at home. He'll be sent home with Flexeril as needed. Take Motrin and Tylenol as needed. Follow-up with PCP. Report back to ER with any new or worsening symptoms. Discussed return parameters and answered all questions. Patient conveyed verbal understanding and agreed to the plan. I discussed this case in detail with my attending Dr. Worthy Undiagnosed new problem with uncertain prognosis? @ -No Drug Therapy requiring intensive monitoring for toxicity (Heparin, Nitro, Insulin, Cardizem)? @ -No Were any procedures done? @ -No Diagnosis/symptom? @ -Lower back strain Acute, or Chronic, or Acute on Chronic? @ -Acute Uncomplicated (without systemic symptoms) or Complicated (systemic symptoms)? @ -Uncomplicated Side effects of treatment? @ -No Exacerbation, Progression, or Severe Exacerbation? @ -No Poses a threat to life or bodily function? How? (Chest pain, [place], [place], pneumonia, PE, COPD, DKA, ARF, appy, cholecystitis, CVA, Diverticulitis, Homicidal, Suicidal, threat to staff... and all critical care pts) @ -No Disposition Clinical Impression: Strain of lumbar region Disposition: HOME SELF-CARE Condition: Good Instructions (If sedation given, give patient instructions): Acute Low Back Pain (ED) Additional Instructions: Follow-up with PCP. Report back to ER with any new or worsening symptoms. Take Motrin and Tylenol as needed for pain control. Take cyclobenzaprine as prescribed, do not take before driving or operating heavy machinery as it may cause drowsiness Prescriptions: Cyclobenzaprine [Flexeril] 10 mg PO TID PRN #15 tab PRN Reason: Spasms Is patient prescribed a controlled substance at d/c from ED?: No Referrals: Bryant Barbour DO [Primary Care Provider] - 1-2 days Time of Disposition: 03:32
[2023-02-12] MEDS ORDERED: ORPHENADRINE 30 MG/ML 2 ML VIAL IM STA (02:40)
--- NOTE | 2023-02-12 03:39 | XR ---
EXAM: XR Lumbosacral Spine, 2 or 3 Views CLINICAL HISTORY: ITS.REASON XR Reason: injury TECHNIQUE: Frontal and lateral views of the lumbar spine and sacrum. COMPARISON: No relevant prior studies available. FINDINGS: Vertebrae: No acute fracture. Normal sagittal alignment. Slight levoscoliosis. Disc spaces: Mild narrowing at multiple levels. Soft tissues: Unremarkable. IMPRESSION: No acute findings.
== END 2023-02-12 03:37 | disposition home or self-care (01) ==
LOC: EC 01:40
DX: S39.012A Strain of muscle, fascia and tendon of lower back, initial encounter (principal); J44.9 Chronic obstructive pulmonary disease, unspecified; G47.30 Sleep apnea, unspecified; F17.200 Nicotine dependence, unspecified, uncomplicated; X50.0XXA Overexertion from strenuous movement or load, initial encounter
CPT/HCPCS: 72100; 99283; 96372; J1100; J2360; J1885

== ENCOUNTER 2023-06-01 00:45 | Emergency (ER) | payer OTHER ==
[2023-06-01 01:25] VITALS: PULSE 79; RESP 18; TEMP 97.9
--- NOTE | 2023-06-01 04:53 | ED ---
General Adult HPI - General Chief complaint: Extremity Injury, Lower Stated complaint: [facility], Right foot injury Time Seen by Provider: 06/01/23 03:12 Source: patient Mode of arrival: ambulatory Limitations: no limitations - History of Present Illness Initial comments: 53-year-old male presenting to the ED with a chief complaint of right foot injury. Patient states that he was walking up the stairs and had some oil on the bottom of his boot causing his foot slipped forward. Patient states due to this he ended up kicking the stair. Now notes pain to the mid foot. No other injuries at this time. No other complaints. - Related Data Previous Rx's Medication Instructions Recorded Albuterol Inhaler [Ventolin Hfa 2 puff INHALATION Q4HR PRN #8 gm 12/30/22 Inhaler] predniSONE 60 mg PO DAILY #30 tab 12/30/22 Cyclobenzaprine [Flexeril] 10 mg PO TID PRN #15 tab 02/12/23 Allergies Allergy/AdvReac Type Severity Reaction Status Date / Time No Known Allergies Allergy Verified 06/01/23 01:04 Review of Systems ROS Statement: Those systems with pertinent positive or pertinent negative responses have been documented in the HPI. ROS Other: All systems not noted in ROS Statement are negative. Past Medical History Past Medical History: Cancer, COPD, GERD/Reflux, Hyperlipidemia, Prostate Disorder, Renal Disease, Sleep Apnea/CPAP/BIPAP Additional Past Medical History / Comment(s): Migraines. Hx prostate cancer 2014. No CPAP use. Tumor on right kidney. History of Any Multi-Drug Resistant Organisms: None Reported Past Surgical History: Adenoidectomy, Appendectomy, Cholecystectomy, Hernia Repair, Orthopedic Surgery, Prostate Surgery, Tonsillectomy Additional Past Surgical History / Comment(s): Left knee arthroscopy, right ankle tendon surgery, wisdom teeth extracted. right kidney Past Anesthesia/Blood Transfusion Reactions: No Reported Reaction Past Psychological History: No Psychological Hx Reported Smoking Status: Current some day smoker, Light tobacco smoker Past Alcohol Use History: Occasional Past Drug Use History: None Reported - Past Family History Mother Family Medical History: Cancer, Pulmonary Embolus Additional Family Medical History / Comment(s): Mother of lung cancer. She was a smoker. Father Family Medical History: Diabetes Mellitus, Myocardial Infarction ([place]), Renal Disease Additional Family Medical History / Comment(s): Kidney stones. General Exam Limitations: no limitations General appearance: alert, in no apparent distress Neck exam: Present: normal inspection Respiratory exam: Present: normal lung sounds bilaterally Cardiovascular Exam: Present: regular rate, normal rhythm GI/Abdominal exam: Present: soft Extremities exam: Present: other (Strength and sensation equal and intact of bilateral lower extremities. Tenderness to palpation of the dorsal midfoot however no obvious deformities, crepitus, step-off.) Neurological exam: Present: alert, oriented X3 Skin exam: Present: warm, dry Course Vital Signs 06/01/23 01:05 Temperature 97.9 F Pulse Rate 79 Respiratory 18 Rate Blood Pressure 131/89 O2 Sat by Pulse 95 Oximetry Medical Decision Making - Medical Decision Making Was pt. sent in by a medical professional or institution (, PA, PARLIAMENTARY ARCHIVIST, urgent care, hospital, or penitentiary...) When possible be specific @ -No Did you speak to anyone other than the patient for history (EMS, parent, family, police, friend...)? What history was obtained from this source @ -No Did you review nursing and triage notes (agree or disagree)? Why? @ -I reviewed and agree with nursing and triage notes Were old charts reviewed (outside hosp., previous admission, EMS record, old EKG, old radiological studies, urgent care reports/EKG's, penitentiary records)? Report findings @ -No old charts were reviewed Differential Diagnosis (chest pain, altered mental status, abdominal pain women, abdominal pain men, vaginal bleeding, weakness, fever, dyspnea, syncope, headache, dizziness, GI bleed, back pain, seizure, CVA, palpatations, mental health, musculoskeletal)? @ -Differential Musculoskeletal Muscular strain, contusion, ligament sprain, fracture, arthritis, septic arthritis, bursitis, cellulitis, muscle spasm, nerve compression, DVT, arterial occlusion, herpes zoster, electrolyte abnormality, tumor.... This is not meant to be in all inclusive list EKG interpreted by me (3pts min.). @ -As above X-rays interpreted by me (1pt min.). @ -X-ray interpretation only show no evidence of acute finding. CT interpreted by me (1pt min.). @ -None done U/S interpreted by me (1pt. min.). @ -None done What testing was considered but not performed or refused? (CT, X-rays, U/S, labs)? Why? @ -None What meds were considered but not given or refused? Why? @ -None Did you discuss the management of the patient with other professionals (professionals i.e. , PA, PARLIAMENTARY ARCHIVIST, lab, RT, psych nurse, group social worker, router operator, teacher, police liaison officer, behavioral health case manager)? Give summary @ -No Was smoking cessation discussed for >3mins.? @ -No Was critical care preformed (if so, how long)? @ -No Were there social determinants of health that impacted care today? How? (Homelessness, low income, unemployed, alcoholism, drug addiction, transportation, low edu. Level, literacy, decrease access to med. care, custodial, rehab)? @ -No Was there de-escalation of care discussed even if they declined (Discuss DNR or withdrawal of care, Hospice)? DNR status @ -No What co-morbidities impacted this encounter? (DM, HTN, Smoking, COPD, CAD, Cancer, CVA, ARF, Chemo, Hep., AIDS, mental health diagnosis, sleep apnea, morbid obesity)? @ -None Was patient admitted / discharged? Hospital course, mention meds given and route, prescriptions, significant lab abnormalities, going to OR and other pertinent info. @ -Discharge 53-year-old male presenting to the ED with a chief complaint right foot injury. Imaging studies reveal no acute finding. Discharged home in stable condition. Discussed return precautions patient verbalized route. Undiagnosed new problem with uncertain prognosis? @ -No Drug Therapy requiring intensive monitoring for toxicity (Heparin, Nitro, Insulin, Cardizem)? @ -No Were any procedures done? @ -No Diagnosis/symptom? @ -Right foot contusion Acute, or Chronic, or Acute on Chronic? @ -Acute Uncomplicated (without systemic symptoms) or Complicated (systemic symptoms)? @ -Uncomplicated Side effects of treatment? @ -No Exacerbation, Progression, or Severe Exacerbation? @ -No Poses a threat to life or bodily function? How? (Chest pain, [place], [place], pneumonia, PE, COPD, DKA, ARF, appy, cholecystitis, CVA, Diverticulitis, Homicidal, Suicidal, threat to staff... and all critical care pts) @ -No Disposition Clinical Impression: Foot contusion Disposition: HOME SELF-CARE Condition: Good Instructions (If sedation given, give patient instructions): Foot Contusion (ED) Additional Instructions: Please return to the Emergency Department if symptoms worsen or any other concerns. Motrin/Tylenol as needed for pain. Is patient prescribed a controlled substance at d/c from ED?: No Referrals: Bryant Barbour DO [Primary Care Provider] - 1-2 days Time of Disposition: 05:12
--- NOTE | 2023-06-01 05:04 | XR ---
EXAM: XR Right Foot Complete, 3 or More Views CLINICAL HISTORY: ITS.REASON XR Reason: pain, swelling TECHNIQUE: Frontal, lateral and oblique views of the right foot. COMPARISON: No relevant prior studies available. FINDINGS: Bones/joints: Plantar calcaneal and Achilles tendon enthesophytes. First metatarsal phalangeal joint and dorsal midfoot degenerative change. Surgical anchors are in place at the distal fibula question of a fracture through the medial base of the fifth proximal phalanx.. Soft tissues: Unremarkable. No radiopaque foreign body. IMPRESSION: Question of a fracture through the base of the proximal phalanx of the fifth digit.
[2023-06-01] MEDS ORDERED: KETOROLAC 15 MG/ML 1 ML VIAL IM STA (05:12)
[2023-06-01 05:37] VITALS: BP 117/84
== END 2023-06-01 05:25 | disposition home or self-care (01) ==
LOC: EC 00:45
DX: S90.31XA Contusion of right foot, initial encounter (principal); J44.9 Chronic obstructive pulmonary disease, unspecified; F17.200 Nicotine dependence, unspecified, uncomplicated; Z90.49 Acquired absence of other specified parts of digestive tract; W18.40XA Slipping, tripping and stumbling without falling, unspecified, initial encounter; Y99.0 Civilian activity done for income or pay
CPT/HCPCS: 99283

== ENCOUNTER → 2023-06-03 | Outpatient (CLI) | payer OTHER ==
--- NOTE | 2023-06-03 12:27 | XR ---
EXAMINATION TYPE: XR ankle complete RT DATE OF EXAM: 06/03/2023 12:21 PM CLINICAL INDICATION:Male, 53 years old with history of S93.401A Sprain right ankle; [facility] COMPARISON: None TECHNIQUE: XR ankle complete RT; ankle is imaged in frontal, lateral and oblique projections. FINDINGS: Anchors are seen in the distal fibula. Soft tissue swelling around the ankle. No evidence or fracture . Calcaneal plantar spurring and Achilles enthesophyte formation. IMPRESSION: Soft tissue swelling around the ankle without evidence of fracture. Postsurgical changes noted with a nchors in the fibula.
== END | disposition home or self-care (01) ==
LOC: RADXRMAIN 12:01
PROVIDERS: ATTEND Emergency Medicine
DX: S93.401A Sprain of unspecified ligament of right ankle, initial encounter (principal); M79.89 Other specified soft tissue disorders; X58.XXXA Exposure to other specified factors, initial encounter

== ENCOUNTER 2023-08-01 06:46 | Day surgery (SDC) | payer OTHER ==
[2023-07-25 14:38] VITALS: BMI 37.2
[~2023-08-01 06:46] MED LIST: LACTATED RINGERS 1,000 ML IV SCH
[2023-08-01] MEDS ORDERED: LACTATED RINGERS 1,000 ML IV ONE (07:20)
[2023-08-01 07:25] VITALS: TEMP 97.7
[2023-08-01 07:34] LABS: Glucose,Whole Blood 163 mg/dL (70-110)
[2023-08-01] MEDS ORDERED: PROPOFOL 10 MG/ML 20 ML VIAL IV ONE (07:40)
--- NOTE | 2023-08-01 07:46 | P.GSHP ---
History of Present Illness H&P Date: 08/01/23 Chief Complaint: Screening colonoscopy This a 53-year-old male presents today for screening colonoscopy. Patient denies a significant GI complaints. Past Medical History Past Medical History: Cancer, COPD, Hyperlipidemia, Prostate Disorder, Renal Disease, Sleep Apnea/CPAP/BIPAP Additional Past Medical History / Comment(s): Migraines., prostate cancer 2015 with surgery , sleep apnea-no machine., right kidney tumor removed ., States elevated HGBA1C but has never been told he has diabetes., States occasional chest pain caused by anxiety. History of Any Multi-Drug Resistant Organisms: None Reported Past Surgical History: Adenoidectomy, Appendectomy, Cholecystectomy, Hernia Repair, Orthopedic Surgery, Prostate Surgery, Tonsillectomy Additional Past Surgical History / Comment(s): Left knee arthroscopy, right ankle tendon surgery, wisdom teeth extracted. right kidney tumor removed Past Anesthesia/Blood Transfusion Reactions: No Reported Reaction Past Psychological History: No Psychological Hx Reported Smoking Status: Current some day smoker, Light tobacco smoker Past Alcohol Use History: Occasional Additional Past Alcohol Use History / Comment(s): Started smoking 1995, has always been a light smoker, up to 0.5 ppd, currently 1 pack per week. Past Drug Use History: None Reported - Past Family History Mother Family Medical History: Cancer, Pulmonary Embolus Additional Family Medical History / Comment(s): Mother of lung cancer. She was a smoker. Father Family Medical History: Cancer, Diabetes Mellitus, Myocardial Infarction ([place]), Renal Disease Additional Family Medical History / Comment(s): Kidney stones., prostate cancer Medications and Allergies Home Medications Medication Instructions Recorded Confirmed Type Albuterol Inhaler [Ventolin Hfa 1 - 2 puff INHALATION Q6H PRN 07/25/23 08/01/23 History Inhaler] Ibuprofen [Motrin Ib] 600 mg PO DIRECTED PRN 07/25/23 08/01/23 History Solifenacin Succinate [Vesicare] 10 mg PO DAILY 07/25/23 08/01/23 History glipiZIDE 5 mg PO DAILY 07/25/23 08/01/23 History Allergies Allergy/AdvReac Type Severity Reaction Status Date / Time No Known Allergies Allergy Verified 08/01/23 07:17 Surgical - Exam Vital Signs Temp Pulse Resp BP Pulse Ox 97.7 F 83 18 128/58 93 L 08/01/23 07:17 08/01/23 07:17 08/01/23 07:17 08/01/23 07:17 08/01/23 07:17 - General well developed, well nourished, no distress - Eyes PERRL - ENT normal pinna - Neck no masses - Respiratory normal expansion - Cardiovascular Rhythm: regular - Abdomen Abdomen: soft, non tender Results - Labs Abnormal Lab Results - Last 24 Hours (Table) 08/01/23 Range/Units 07:29 POC Glucose (mg/dL) 163 H (70-110) mg/dL Assessment and Plan Assessment: We'll perform screening colonoscopy
--- NOTE | 2023-08-01 08:03 | P.OP ---
Date of Procedure: 08/01/23 Preoperative Diagnosis: screening colonoscopy Postoperative Diagnosis: Right colon polyp Procedure(s) Performed: Colonoscopy Anesthesia: MAC Surgeon: Fer De Los Santos Pathology: other (Right colon polyp) Condition: stable Disposition: PACU Description of Procedure: The patient's placed on the endoscopy table in the lateral position. He received IV sedation. Digital rectal exam was performed. This revealed no abnormalities. The flexible colonoscope was then placed patient anus and passed throughout the entire colon. The ileocecal valve was visualized. The cecum appeared normal. In the right colon there was a sessile polyp was seen. This removed the cold forcep. The remainder the right colon appeared normal. The transverse colon appeared normal. The descending and sigmoid colon appeared normal. The scope was then brought back the rectum and this was normal. Scope withdrawn for patient.
[2023-08-01 09:00] LABS: Glucose,Whole Blood 147 mg/dL (70-110)
[2023-08-01 09:05] VITALS: BP 128/86; PULSE 73; RESP 20
== END 2023-08-01 09:05 | disposition home or self-care (01) ==
LOC: ORWHC2ENDO 06:46
PROVIDERS: ATTEND Surgery
DX: Z12.11 Encounter for screening for malignant neoplasm of colon (principal); D12.2 Benign neoplasm of ascending colon; E78.5 Hyperlipidemia, unspecified; G47.30 Sleep apnea, unspecified; J44.9 Chronic obstructive pulmonary disease, unspecified; F17.210 Nicotine dependence, cigarettes, uncomplicated; Z79.84 Long term (current) use of oral hypoglycemic drugs; Z85.46 Personal history of malignant neoplasm of prostate; Z90.49 Acquired absence of other specified parts of digestive tract; Z79.899 Other long term (current) drug therapy
CPT/HCPCS: 88305; 45380; J2704

== ENCOUNTER → 2023-10-08 | Outpatient (CLI) | payer OTHER ==
[2023-10-08 11:32] LABS: African American GFR (CKD) >90 (>60 ml/min/1.73 sqM); Blood Urea Nitrogen 19 mg/dL (9-20); Non-African American GFR(CKD) >90 (>60 ml/min/1.73 sqM)
[2023-10-08] MEDS: diphenhydrAMINE 50 MG CAP PO STA (12:47)
[2023-10-08 12:55] LABS: Glucose,Whole Blood 119 mg/dL (70-110)
--- NOTE | 2023-10-08 14:04 | CT ---
EXAMINATION TYPE: CT abdomen wo/w con DATE OF EXAM: 10/08/2023 COMPARISON: 04/05/2023. HISTORY: Malignant neoplasm of RT kidney. Pt vomited post injection and first image, delay was done a fter [address] DLP: 3124.50 mGycm Automated exposure control for dose reduction was used. TECHNIQUE: Helical acquisition of images was performed from the lung bases through the top of iliac crest to include entire abdomen. CONTRAST: Performed with Oral Contrast and with IV Contrast, patient injected with 100 mL of Isovue 300. FINDINGS: LUNG BASES: No significant abnormality is appreciated. LIVER/GB: No focal liver lesions are identified. The gallbladder surgically absent PANCREAS: No significant abnormality is seen. SPLEEN: No significant abnormality is seen. ADRENALS: No significant abnormality is seen. KIDNEYS: Partial right nephrectomy is noted in the interpolar region to inferior pole with no residua l or recurrent disease. There is a simple cyst in the inferior pole of the left kidney that measures 5.3 cm in diameter. No suspicious renal lesions are seen at this time BOWEL: There is mild descending colonic diverticulosis without evidence of diverticulitis. LYMPH NODES: No significant abnormality is seen. OSSEOUS STRUCTURES: No significant abnormality is seen. FREE AIR: No free air is visualized. OTHER: IMPRESSION: 1. PRIOR PARTIAL RIGHT NEPHRECTOMY WITH NO RESIDUAL OR RECURRENT DISEASE IDENTIFIED. 2. SIMPLE LEFT RENAL CYST. 3. DIVERTICULOSIS WITHOUT EVIDENCE OF DIVERTICULITIS.
--- NOTE | 2023-10-08 14:39 | XR ---
EXAMINATION TYPE: XR chest 2V DATE OF EXAM: 10/08/2023 COMPARISON: 04/05/2023. HISTORY: History of malignant neoplasm of the right kidney. TECHNIQUE: Frontal and lateral views of the chest are obtained. FINDINGS: There is no focal air space opacity, pleural effusion, or pneumothorax seen. The cardiac silhouette size is within normal limits. The osseous structures are intact. IMPRESSION: No acute cardiopulmonary process.
== END | disposition home or self-care (01) ==
LOC: RADCTMAIN 10:57
PROVIDERS: ATTEND Urology
DX: K57.30 Diverticulosis of large intestine without perforation or abscess without bleeding (principal); N28.1 Cyst of kidney, acquired; C64.1 Malignant neoplasm of right kidney, except renal pelvis; Z90.5 Acquired absence of kidney
CPT/HCPCS: 82565; 84520; 71046; 74170; 36415; Q9967

== ENCOUNTER 2024-03-05 23:40 | Emergency (ER) | payer OTHER ==
[2024-03-06] MEDS ORDERED: IBUPROFEN 800 MG TAB ONE (00:26)
--- NOTE | 2024-04-13 10:17 | XR ---
EXAMINATION TYPE: XR shoulder complete 3 views RT DATE OF EXAM: 04/13/2024 Comparison: None Clinical History: 53-year-old male with pain after HURT AT WORK 2 DAYS AGO LIFTING Findings: Moderate degenerative change at the AC joint with subchondral sclerosis and marginal spurring. The savage bacromial space is preserved. No acute fracture, subluxation, dislocation is seen. Impression: Moderate AC joint OA. No acute osseous abnormality seen. If symptoms persist, consider MRI. [facility], , 04/13/2024 10:15 AM
== END 2024-03-06 02:00 | disposition home or self-care (01) ==
LOC: EC 23:40
CPT/HCPCS: 99283

== ENCOUNTER → 2024-03-09 | Outpatient (CLI) | payer OTHER ==
--- NOTE | 2024-04-13 09:32 | XR ---
Patient Jefe Garcia ID [id number] Order # EXAMINATION TYPE: XR cervical spine comp DATE OF EXAM: 03/10/2024 8:44 AM CLINICAL INDICATION: [id number]. Right trap? pain with radiat.... RUE with heavy lifting and blunt trau ma. (hard to read). Tech Hx: felt pop in neck, Right Shoulder pain traveling down arm. COMPARISON: THIS EXAM WAS READ DURING PACS DOWNTIME, NO PRIORS AVAILABLE. TECHNIQUE: The cervical spine was imaged in frontal, lateral, odontoid and bilateral oblique. FINDINGS: The osseous structures show normal alignment without evidence of an acute fracture. There are osteoph ytes noted throughout the cervical spine on the anterior and lateral aspects of the vertebral bodies. The intervertebral disk spaces are narrowed at multiple levels. Pedicles are intact. Soft tissues a re within normal limits. The odontoid appears intact. IMPRESSION: 1. No fracture or dislocation. 2. Mild degenerative disc disease changes of the cervical spine.
== END | disposition home or self-care (01) ==
LOC: RADXRMAIN 15:30
PROVIDERS: ATTEND Emergency Medicine
DX: S13.4XXA Sprain of ligaments of cervical spine, initial encounter
CPT/HCPCS: 72050

== ENCOUNTER → 2024-03-11 | Outpatient (CLI) | payer OTHER | END | disposition home or self-care (01) | LOC: LABPRL 09:40 | PROVIDERS: ATTEND Nurse Practitioner Family | DX: I10 Essential (primary) hypertension (principal); E11.9 Type 2 diabetes mellitus without complications | CPT/HCPCS: 80053; 82043; 82570; 83036 ==

== ENCOUNTER → 2024-10-02 | Outpatient (CLI) | payer OTHER ==
--- NOTE | 2024-10-02 13:07 | XR ---
EXAMINATION TYPE: XR chest 2V DATE OF EXAM: 10/02/2024 12:58 PM COMPARISON: Chest x-ray October 08, 2023 CLINICAL INDICATION: Male, 54 years old with history of C64.1 MALIGNANT NEOPLASM OF RIGHT KIDNEY, EXC EPT R, TECHNIQUE: Frontal and lateral views of the chest are obtained. FINDINGS: There is elevated right hemidiaphragm with right basilar linear opacity favoring atelectas is. Left lung is clear. The cardiac silhouette size is stable and within normal limits. The osseou s structures are intact. IMPRESSION: Elevated right hemidiaphragm with right basilar linear atelectasis. [facility], , 10/02/2024 1:05 PM
--- NOTE | 2024-10-02 14:59 | CT ---
EXAMINATION TYPE: CT abdomen wo/w con DATE OF EXAM: 10/02/2024 2:22 PM COMPARISON: 10/08/2023 CLINICAL INDICATION: Male, 54 years old with history of C64.1 MALIGNANT NEOPLASM OF RIGHT KIDNEY, EXC EPT R; Renal Cancer-Right TECHNIQUE: Axial CT abdomen wo/w con;Sagittal and coronal reformats were created on a separate works tation. Contrast used:100 ml mL of Isovue 300 without and with IV Contrast, (none if empty) Oral contrast used: with Oral Contrast (none if empty) CT DLP: 2325 mGycm, Automated exposure control for dose reduction was used. FINDINGS: LOWER CHEST: Elevated right diaphragm with some atelectasis changes. ABDOMEN LIVER: Unremarkable GALLBLADDER AND BILE DUCTS: The gallbladder surgically absent. PANCREAS: Unremarkable. SPLEEN: Unremarkable. ADRENAL GLANDS: Unremarkable. KIDNEYS AND URETERS: Partial right nephrectomy without evidence for enlarging mass or lymphadenopathy . No evidence of hydronephrosis or renal calculus. The ureters are unremarkable. Left renal cyst. STOMACH AND BOWEL: No evidence of bowel obstruction. Appendix is normal. Moderate stool burden throug hout the colon. PERITONEUM/RETROPERITONEUM: No evidence of pneumoperitoneum or free fluid. VASCULATURE: No evidence of aortic aneurysm. MUSCULOSKELETAL: No acute osseous abnormalities. Moderate disc degeneration changes are present throu ghout the thoracolumbar spine. Vertebral body hemangioma at L5. LYMPH NODES: No gross evidence for lymphadenopathy. SOFT TISSUE/ABDOMINAL WALL: Unremarkable IMPRESSION: 1. Partial right nephrectomy without evidence for recurrence in the surgical bed or lymphadenopathy. 2. Simple appearing left renal cyst. 3. Elevated right diaphragm is atelectasis. [facility], , 10/02/2024 2:56 PM
== END | disposition home or self-care (01) ==
LOC: RADCTMAIN 12:41
PROVIDERS: ATTEND Urology
DX: C64.1 Malignant neoplasm of right kidney, except renal pelvis (principal); N28.1 Cyst of kidney, acquired; J98.11 Atelectasis; J98.6 Disorders of diaphragm; Z90.5 Acquired absence of kidney
CPT/HCPCS: 71046; 74170; Q9967

== ENCOUNTER 2025-01-28 16:10 | Emergency (ER) | payer OTHER ==
[2025-01-28 16:17] LABS: Glucose,Whole Blood 262 mg/dL (70-110)
[2025-01-28 16:54] LABS: Basophils # (A) 0.02 10*3/uL (0.00-0.10); Basophils % (A) 0.3 %; Eosinophils # (A) 0.16 10*3/uL (0.04-0.35); Eosinophils % (A) 2.3 %; HCT 46.3 % (39.6-50.0); HGB 15.6 g/dL (13.0-17.0); Lymphocytes # (A) 1.48 10*3/uL (0.90-5.00); Lymphocytes % (A) 21.7 %; MCH 30.5 pg (27.0-32.0); MCHC 33.7 g/dL (32.0-37.0); MCV 90.4 fL (80.0-97.0); Monocytes # (A) 0.51 10*3/uL (0.20-1.00); Monocytes % (A) 7.5 %; Neutrophils # (A) 4.65 10*3/uL (1.80-7.70); Neutrophils % (A) 68.1 %; Platelet Count 233 10*3/uL (140-440); RBC 5.12 10*6/uL (4.40-5.60); RDW 12.7 % (11.5-14.5); WBC 6.83 10*3/uL (4.50-10.00)
[2025-01-28 17:11] LABS: ALT 40 U/L (4-49); AST 27 U/L (17-59); African American GFR (CKD) >90 (>60 ml/min/1.73 sqM); Albumin 4.1 g/dL (3.5-5.0); Alkaline Phosphatase 117 U/L (38-126); Anion Gap 8 mmol/L; Blood Urea Nitrogen 17 mg/dL (9-20); Calcium 9.6 mg/dL (8.4-10.2); Carbon Dioxide 30 mmol/L (22-30); Chloride 99 mmol/L (98-107); Glucose 249 mg/dL (74-99); Non-African American GFR(CKD) >90 (>60 ml/min/1.73 sqM); Potassium 4.1 mmol/L (3.5-5.1); Sodium 137 mmol/L (137-145); Total Protein 6.5 g/dL (6.3-8.2)
--- NOTE | 2025-01-28 18:24 | ED ---
General Adult HPI - General Source: patient, RN notes reviewed Mode of arrival: ambulatory Limitations: no limitations <Giancarlo Lawler - Last Filed: 01/28/25 18:21> - History of Present Illness -: days(s) <Remy Cameron - Last Filed: 01/28/25 21:57> - General Chief complaint: Dizziness Stated complaint: Diabetic/Blurred Vision/Dizziness Time Seen by Provider: 01/28/25 16:28 - History of Present Illness Initial comments: Quick note: This is a 54-year-old male with history of DM, COPD, hyperlipidemia and renal disease presenting for elevated blood sugar x 3 days. Patient endorses associated blurry vision and dizziness with some shakiness/tremors. Patient states blood glucose at home was in the 300s. Denies fever, chills, chest pain, dyspnea, abdominal pain, N/V/D. (Giancarlo Lawler) This patient is a 54-year-old man who presents with complaint that he has been having the symptoms as above and that he has been out of his glipizide for approximately 1 week now. He attempted to get a hold of his physicians office but they are closed for the holiday. (Remy Cameron) - Related Data Home Medications Medication Instructions Recorded Confirmed glipiZIDE 5 mg PO DAILY 07/25/23 01/28/25 Losartan [Cozaar] 25 mg PO DAILY 01/28/25 01/28/25 Previous Rx's Medication Instructions Recorded glipiZIDE 5 mg PO DAILY #30 tablet 01/28/25 Allergies Allergy/AdvReac Type Severity Reaction Status Date / Time Iodinated Contrast Media Allergy Nausea & Verified 01/28/25 21:13 Vomiting Review of Systems ROS Other: All systems not noted in ROS Statement are negative. <Giancarlo Lawler - Last Filed: 01/28/25 18:21> ROS Other: All systems not noted in ROS Statement are negative. <Remy Cameron - Last Filed: 01/28/25 21:57> ROS Statement: Those systems with pertinent positive or pertinent negative responses have been documented in the HPI. Past Medical History Past Medical History: Cancer, COPD, Hyperlipidemia, Prostate Disorder, Renal Disease, Sleep Apnea/CPAP/BIPAP Additional Past Medical History / Comment(s): Migraines., prostate cancer 2015 with surgery , sleep apnea-no machine., right kidney tumor removed ., States elevated HGBA1C but has never been told he has diabetes., States occasional chest pain caused by anxiety. History of Any Multi-Drug Resistant Organisms: None Reported Past Surgical History: Adenoidectomy, Appendectomy, Cholecystectomy, Hernia Repair, Orthopedic Surgery, Prostate Surgery, Tonsillectomy Additional Past Surgical History / Comment(s): Left knee arthroscopy, right an kle tendon surgery, wisdom teeth extracted. right kidney tumor removed Past Anesthesia/Blood Transfusion Reactions: No Reported Reaction Past Psychological History: No Psychological Hx Reported Smoking Status: Current some day smoker, Light tobacco smoker Past Alcohol Use History: Occasional Past Drug Use History: None Reported - Past Family History Mother Family Medical History: Cancer, Pulmonary Embolus Additional Family Medical History / Comment(s): Mother of lung cancer. She was a smoker. Father Family Medical History: Cancer, Diabetes Mellitus, Myocardial Infarction (NM), Renal Disease Additional Family Medical History / Comment(s): Kidney stones., prostate cancer <Giancarlo Lawler - Last Filed: 01/28/25 18:21> General Exam Limitations: no limitations <Giancarlo Lawler - Last Filed: 01/28/25 18:21> Limitations: no limitations General appearance: alert, in no apparent distress Head exam: Present: atraumatic, normocephalic Eye exam: Present: normal appearance. Absent: scleral icterus, conjunctival injection ENT exam: Present: normal oropharynx Neck exam: Present: normal inspection, full ROM Respiratory exam: Present: normal lung sounds bilaterally. Absent: respiratory distress, wheezes, rales, rhonchi, stridor, accessory muscle use Cardiovascular Exam: Present: regular rate, normal rhythm, normal heart sounds. Absent: systolic murmur, diastolic murmur, rubs GI/Abdominal exam: Present: soft, distended. Absent: tenderness, guarding, rebound, rigid, mass Extremities exam: Present: normal inspection, normal capillary refill. Absent: pedal edema, calf tenderness Back exam: Present: normal inspection Neurological exam: Present: alert Skin exam: Present: warm, dry, intact, normal color. Absent: rash <Remy Cameron - Last Filed: 01/28/25 21:57> - General Exam Comments Initial Comments: Visual Physical Exam Vital signs reviewed General: Well-appearing, nontoxic, no acute distress. Head: Normocephalic, atraumatic Eyes: PERRLA, EOMI ENT: Airway patent Chest: Nonlabored breathing Skin: No visual rash, normal skin tone Neuro: Alert and oriented 3 Musculoskeletal: No gross abnormalities (Giancarlo Lawler) Course Vital Signs 01/28/25 01/28/25 16:11 21:44 Temperature 98.2 F Pulse Rate 72 62 Respiratory 18 18 Rate Blood Pressure 135/88 101/77 O2 Sat by Pulse 93 L 93 L Oximetry EKG Findings - EKG Results: EKG: interpreted by ERMD, sinus rhythm (Rate 72 bpm) - Blocks, [place], Hypertrophy, ST Abn: QRS axis and voltage: left axis deviation (-30 to -90), pulmonary disease <Remy Cameron - Last Filed: 01/28/25 21:57> Medical Decision Making - Lab Data Result diagrams: 01/28/25 16:46 01/28/25 16:46 <Giancarlo Lawler - Last Filed: 01/28/25 18:21> - Lab Data Result diagrams: 01/28/25 16:46 01/28/25 16:46 <Remy Cameron - Last Filed: 01/28/25 21:57> - Medical Decision Making I completed the quick note portion of this chart signed ZAKIA Galeana (Giancarlo Lawler) The patient had two-view chest x-ray which I interpreted as showing linear opacity at the right lung base which is present on the comparison film. No acute infiltrate, pneumothorax, congestive heart failure (Remy Cameron) - Lab Data Lab Results 01/28/25 01/28/25 01/28/25 Range/Units 16:16 16:46 16:46 WBC 6.83 (4.50-10.00) 10*3/uL RBC 5.12 (4.40-5.60) 10*6/uL Hgb 15.6 (13.0-17.0) g/dL Hct 46.3 (39.6-50.0) % MCV 90.4 (80.0-97.0) fL MCH 30.5 (27.0-32.0) pg MCHC 33.7 (32.0-37.0) g/dL Plt Count 233 (140-440) 10*3/uL MPV 9.4 L (9.5-12.2) fL Immature Gran % (Auto) 0.1 % Neutrophils % 68.1 % Lymphocytes % 21.7 % Monocytes % 7.5 % Eosinophils % 2.3 % Basophils % 0.3 % Immature Gran # 0.01 (0.00-0.04) 10*3/uL Neutrophils # 4.65 (1.80-7.70) 10*3/uL Lymphocytes # 1.48 (0.90-5.00) 10*3/uL Monocytes # 0.51 (0.20-1.00) 10*3/uL Eosinophils # 0.16 (0.04-0.35) 10*3/uL Basophils # 0.02 (0.00-0.10) 10*3/uL VBG pH (7.31-7.41) VBG pCO2 (37-51) mmHg VBG HCO3 (24-28) mmol/L Sodium 137 (137-145) mmol/L Potassium 4.1 (3.5-5.1) mmol/L Chloride 99 (98-107) mmol/L Carbon Dioxide 30 (22-30) mmol/L Anion Gap 8 mmol/L BUN 17 (9-20) mg/dL Creatinine 0.75 (0.66-1.25) mg/dL Est GFR (CKD-EPI)AfAm >90 (>60 ml/min/1.73 sqM) Est GFR (CKD-EPI)NonAf >90 (>60 ml/min/1.73 sqM) Glucose 249 H (74-99) mg/dL POC Glucose (mg/dL) 262 H (70-110) mg/dL POC Glu [employer] ID [place] Calcium 9.6 (8.4-10.2) mg/dL Total Bilirubin 0.3 (0.2-1.3) mg/dL AST 27 (17-59) U/L ALT 40 (4-49) U/L Alkaline Phosphatase 117 (38-126) U/L Total Protein 6.5 (6.3-8.2) g/dL Albumin 4.1 (3.5-5.0) g/dL Urine Color Urine Appearance (Clear) Urine pH (5.0-8.0) Ur Specific [place] (1.001-1.035) Urine Protein (Negative) Urine Glucose (UA) (Negative) Urine Ketones (Negative) Urine Blood (Negative) Urine Nitrite (Negative) Urine Bilirubin (Negative) Urine Urobilinogen (<2.0) mg/dL Ur Leukocyte Esterase (Negative) Acetone, Qual (Negative) 01/28/25 01/28/25 01/28/25 Range/Units 16:46 19:11 19:24 WBC (4.50-10.00) 10*3/uL RBC (4.40-5.60) 10*6/uL Hgb (13.0-17.0) g/dL Hct (39.6-50.0) % MCV (80.0-97.0) fL MCH (27.0-32.0) pg MCHC (32.0-37.0) g/dL Plt Count (140-440) 10*3/uL MPV (9.5-12.2) fL Immature Gran % (Auto) % Neutrophils % % Lymphocytes % % Monocytes % % Eosinophils % % Basophils % % Immature Gran # (0.00-0.04) 10*3/uL Neutrophils # (1.80-7.70) 10*3/uL Lymphocytes # (0.90-5.00) 10*3/uL Monocytes # (0.20-1.00) 10*3/uL Eosinophils # (0.04-0.35) 10*3/uL Basophils # (0.00-0.10) 10*3/uL VBG pH 7.39 (7.31-7.41) VBG pCO2 55 H (37-51) mmHg VBG HCO3 33 H (24-28) mmol/L Sodium (137-145) mmol/L Potassium (3.5-5.1) mmol/L Chloride (98-107) mmol/L Carbon Dioxide (22-30) mmol/L Anion Gap mmol/L BUN (9-20) mg/dL Creatinine (0.66-1.25) mg/dL Est GFR (CKD-EPI)AfAm (>60 ml/min/1.73 sqM) Est GFR (CKD-EPI)NonAf (>60 ml/min/1.73 sqM) Glucose (74-99) mg/dL POC Glucose (mg/dL) (70-110) mg/dL POC Glu [employer] ID Calcium (8.4-10.2) mg/dL Total Bilirubin (0.2-1.3) mg/dL AST (17-59) U/L ALT (4-49) U/L Alkaline Phosphatase (38-126) U/L Total Protein (6.3-8.2) g/dL Albumin (3.5-5.0) g/dL Urine Color Yellow Urine Appearance Clear (Clear) Urine pH 5.5 (5.0-8.0) Ur Specific [place] 1.022 (1.001-1.035) Urine Protein Negative (Negative) Urine Glucose (UA) 4+ H (Negative) Urine Ketones Negative (Negative) Urine Blood Negative (Negative) Urine Nitrite Negative (Negative) Urine Bilirubin Negative (Negative) Urine Urobilinogen <2.0 (<2.0) mg/dL Ur Leukocyte Esterase Negative (Negative) Acetone, Qual Negative (Negative) Disposition <Giancarlo Lawler - Last Filed: 01/28/25 18:21> Is patient prescribed a controlled substance at d/c from ED?: No <Remy Cameron - Last Filed: 01/28/25 21:57> Clinical Impression: Hyperglycemia Disposition: HOME SELF-CARE Condition: Good Instructions (If sedation given, give patient instructions): Diabetic Hyperglycemia (ED) Prescriptions: glipiZIDE 5 mg PO DAILY #30 tablet Referrals: Bryant Barbour DO [Primary Care Provider] - 1-2 days
--- NOTE | 2025-01-28 18:50 | XR ---
EXAMINATION TYPE: XR chest 2V DATE OF EXAM: 01/28/2025 6:43 PM COMPARISON: Chest radiographs from 10/02/2024 TECHNIQUE: XR chest 2V Frontal and lateral views of the chest. CLINICAL INDICATION:Male, 54 years old with history of Dizziness; FINDINGS: Lungs/Pleura: There is no evidence of pleural effusion, focal consolidation, or pneumothorax. Chroni c elevation of the right hemidiaphragm. Pulmonary vascularity: Unremarkable. Heart/mediastinum: Cardiomediastinal silhouette is unremarkable. Musculoskeletal: Multiple level degenerative disc disease changes seen throughout the spine. Chronic left AC joint separation. IMPRESSION: Chronic changes without acute pulmonary process. No significant change from prior. [facility], , 01/28/2025 6:47 PM
[2025-01-28 19:25] LABS: Bilirubin,Urine Negative (Negative); Blood,Urine Negative (Negative); Color,Urine Yellow; Glucose,Urine (UA) 4+ (Negative); Ketones,Urine Negative (Negative); Leukocyte Esterase,Urine Negative (Negative); Nitrite,Urine Negative (Negative); PH, Urine 5.5 (5.0-8.0); Protein,Urine Negative (Negative); Specific Gravity,Urine 1.022 (1.001-1.035); Urobilinogen,Urine <2.0 mg/dL (<2.0)
[2025-01-28 19:50] LABS: VBG HCO3 33.0 mmol/L (24-28); VBG PCO2 55.0 mmHg (37-51); VBG PH 7.39 (7.31-7.41)
[2025-01-28] MEDS: INSULIN REGULAR 100 UNIT/ML VIAL (IV) SQ STA (21:41)
[2025-01-28] MEDS: SODIUM CHLORIDE 0.9% 1,000 ML IV ONE (21:43)
[2025-01-28] MEDS: glipiZIDE 5 MG TAB PO STA (22:48)
[2025-01-28 22:54] VITALS: BP 105/81; PULSE 70; RESP 19; TEMP 98.4
== END 2025-01-28 23:16 | disposition home or self-care (01) ==
LOC: EC 16:10
DX: E11.65 Type 2 diabetes mellitus with hyperglycemia (principal); F17.200 Nicotine dependence, unspecified, uncomplicated; Z91.041 Radiographic dye allergy status
CPT/HCPCS: 36415; 71046; 80053; 81003; 82009; 82803; 85025; 93005; 96360; 96361; 99284